=== PATIENT | female | born 1940 | race Caucasian/White ===

== ENCOUNTER 2018-08-17 11:45 | Inpatient (IN) | payer MEDICARE, BC ==
--- NOTE | 2018-08-17 12:35 | CR ---
[id number] RAD/RAD Chest PA And Lateral EXAM: FRONTAL AND LATERAL CHEST INDICATION: Fever and cough. COMPARISON: July 05, 2017. DISCUSSION: Hyperinflation is consistent with chronic obstructive pulmonary disease. Mild to moderate bibasilar interstitial opacities have increased and are most suggestive of infection in the context of fever. Left axillary and lower cervical clips are new relative to the previous examination. IMPRESSION: 1. Increased mild to moderate bilateral interstitial opacities in the lung bases. These findings are most suspicious for infection in the context of fever. Follow-up is suggested to ensure resolution and exclude other underlying pathology. Gerry Pemberton MD 08/17/18 1012 Thank you for allowing us to participate in the care of your patient.
[2018-08-17] MEDS ORDERED: Sodium Chloride 0.9% 1,000 ML IV ONE ×2 (12:49→13:28)
[2018-08-17] MEDS ORDERED: Levofloxacin/Dextrose 5%-Water 500 MG in Premix Bag 1 BAG IV ONE (12:49)
[2018-08-17 12:52] LABS: CHLORIDE,CL 100 mmol/L (98-107); SODIUM,NA 136 mmol/L (136-145)
[2018-08-17 12:53] LABS: ANION GAP 18.5 mmol/L (10-20)
--- NOTE | 2018-08-17 13:14 | EDM.PDOC ---
ED HPI GENERAL MEDICAL PROBLEM - General Chief Complaint: Fever Stated Complaint: FEVER,WHEEZING Time Seen by Provider: 08/17/18 12:00 Source of Information: Reports: Patient, Family, Old Records, RN, RN Notes Reviewed History Limitations: Reports: No Limitations - History of Present Illness INITIAL COMMENTS - FREE TEXT/NARRATIVE: Patient presents the emergency room at [facility] for the evaluation of productive cough, fever, hypoxia. The patient states that her symptoms started last evening. The patient's symptoms have progressively gotten worse. The patient states she feels somewhat weak. The patient was recently hospitalized at [facility] on July 06, 2018 for pneumonia. The patient had an uneventful admission and was able to be discharged home. Since the patient has been home she states that she has felt okay and in her normal usual state of health. The patient was recently seen in clinic on August 13, 2018 and was doing okay at that time. The patient denies any focal neurological deficits. The patient does not have any chest pain. The patient states she is coughing up a green/yellow appearing purulent sputum. The patient has had fevers and chills at home. The patient does not feel short of breath. The patient has not had any nausea vomiting or diarrhea. The patient states she is feeling weak and somewhat fatigued. Otherwise no other concerns. Onset Date: 08/16/18 - Related Data Allergies Allergy/AdvReac Type Severity Reaction Status Date / Time adhesive Allergy Rash Verified 08/17/18 12:07 amoxicillin Allergy Rash Verified 08/17/18 12:07 cephalexin Allergy Rash Verified 08/17/18 12:07 doxycycline Allergy Other Verified 08/17/18 12:07 erythromycin base Allergy Rash Verified 08/17/18 12:07 Fish Containing Products Allergy Nausea Verified 08/17/18 12:07 hydrocodone [From [place]] Allergy Nausea Verified 08/17/18 12:07 hydroxyurea [From [place]] Allergy Other Verified 08/17/18 12:07 iodine Allergy Hives Verified 08/17/18 12:07 latex Allergy Rash Verified 08/17/18 12:07 NSAIDS (Non-Steroidal Allergy Bleeding Verified 08/17/18 12:07 Anti-Inflamma Penicillins Allergy Rash Verified 08/17/18 12:07 perfume Allergy Headache Verified 08/17/18 12:07 Sulfa (Sulfonamide Allergy Rash Verified 08/17/18 12:07 Antibiotics) aspirin AdvReac Bleeding Verified 08/17/18 12:07 Home Meds: Home Meds Citalopram Hydrobromide [Celexa] 20 mg PO BEDTIME 01/02/15 [History] Omeprazole [Prilosec] 20 mg PO DAILY 01/02/15 [History] Epoetin Jhony [Epogen] 2,000 unit SUBCUT WEEKLY 09/30/15 [History] Albuterol [Proventil Neb Soln] 2.5 mg NEB QID 08/17/18 [History] Arformoterol [Brovana] 15 mcg NEB BID 08/17/18 [History] Budesonide [Pulmicort] 0.5 mg NEB BID 08/17/18 [History] Roflumilast [Daliresp] 500 mcg PO DAILY 08/17/18 [History] Past Medical History Respiratory History: Reports: Bronchitis, Recurrent, Other (See Below) Other Respiratory History: Pulmonary emphysema Gastrointestinal History: Reports: GI Bleed, Other (See Below) Other Gastrointestinal History: 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 - Infectious Disease History Infectious Disease History: Reports: C-Difficile Social & Family History - Family History Family Medical History: Noncontributory - Tobacco Use Smoking Status *Q: Unknown Ever Smoked - Caffeine Use Caffeine Use: Reports: Coffee ED ROS GENERAL - Review of Systems Review Of Systems: See Below Constitutional: Reports: Fever, Chills, Weakness, Fatigue HEENT: Reports: No Symptoms Respiratory: Reports: Shortness of Breath, Wheezing, Cough, Sputum Cardiovascular: Denies: Chest Pain, Palpitations GI/Abdominal: Denies: Abdominal Pain, Nausea, Vomiting Skin: Reports: No Symptoms Neurological: Reports: No Symptoms ED EXAM, GENERAL - Physical Exam Exam: See Below Exam Limited By: No Limitations General Appearance: Alert, No Apparent Distress Respiratory/Chest: Decreased Breath Sounds, Rhonchi, Wheezing. No: No Respiratory Distress Cardiovascular: Normal Peripheral Pulses, Tachycardia Peripheral Pulses: 2+: Radial (L), Radial (R) GI/Abdominal: Normal Bowel Sounds, Soft, Non-Tender Neurological: Alert, Oriented Skin Exam: Warm, Dry, Intact, Normal Color Course - Vital Signs Last Recorded V/S: Last Vital Signs Temp 38.8 C H 08/17/18 11:55 Pulse 111 H 08/17/18 11:55 Resp 32 H 08/17/18 11:55 BP 132/65 08/17/18 11:55 Pulse Ox 86 L 08/17/18 11:55 - Orders/Labs/Meds Orders: Active Orders 24 hr Category Date Time Status Admission Status [Patient Status] [ADT] Routine ADT 08/17/18 13:08 Ordered CULTURE BLOOD [BC] Stat Lab 08/17/18 12:15 Received CULTURE BLOOD [BC] Stat Lab 08/17/18 12:21 Received Levofloxacin/Dextrose 5%-Water [Levaquin in D5W 500 MG/ Med 08/17/18 12:49 Active 100 ML] 500 mg Premix Bag 1 bag IV ONETIME Sodium Chloride 0.9% [Normal Saline] 1,000 ml Med 08/17/18 12:49 Active IV ONETIME Sodium Chloride 0.9% [Saline Flush] Med 08/17/18 12:02 Active 10 ml FLUSH ASDIRECTED PRN Blood Culture x2 Reflex Set [OM.PC] Stat Oth 08/17/18 12:01 Ordered Peripheral IV Insertion Adult [OM.PC] Routine Oth 08/17/18 12:02 Ordered Medication Orders Sodium Chloride (Normal Saline) 1,000 mls @ 999 mls/hr IV ONETIME ONE Stop: 08/17/18 13:49 Last Admin: 08/17/18 13:00 Dose: 999 mls/hr Levofloxacin/Dextrose 500 mg/ (Premix) 100 mls @ 100 mls/hr IV ONETIME ONE Stop: 08/17/18 13:48 Last Admin: 08/17/18 13:00 Dose: 100 mls/hr Sodium Chloride (Saline Flush) 10 ml FLUSH ASDIRECTED PRN PRN Reason: Keep Vein Open Labs: Laboratory Tests 08/17/18 08/17/18 08/17/18 Range/Units 12:15 12:15 12:15 WBC 56.4 H* (4.0-10.0) x10^3/uL RBC 3.68 L (4.00-5.50) x10^6/uL Hgb 9.1 L (12.0-16.0) g/dL Hct 29.9 L (33.0-47.0) % MCV 81.3 (78.0-93.0) fL MCH 24.7 L (26.0-32.0) pg MCHC 30.4 L (32.0-36.0) g/dL RDW Coeff of Marcos 29.9 H (10.0-15.0) % Plt Count 514 H D (130-400) x10^3/uL Add Manual Diff Yes Neutrophils % (Manual) 86 H (50-80) % Band Neutrophils % 12 H (0-6) % Monocytes % (Manual) 2 (2-11) % Nucleated RBCs 1 (0-5) /100WBC Platelet Estimate Increased H Hypochromasia 2+ moderate H Anisocytosis 3+ marked H Microcytosis 1+ slight H Sodium 136 (136-145) mmol/L Potassium 3.5 (3.5-5.1) mmol/L Chloride 100 (98-107) mmol/L Carbon Dioxide 21 (21-32) mmol/L Anion Gap 18.5 (10-20) mmol/L BUN 16 (7-18) mg/dL Creatinine 1.0 (0.55-1.02) mg/dL Est Cr Clr Drug Dosing TNP Estimated GFR (MDRD) 54 Glucose 146 H (74-106) mg/dL Lactic Acid 2.2 H* (0.4-2.0) mmol/L Calcium 8.9 (8.5-10.1) mg/dL Corrected Calcium 9.46 (8.5-10.1) mg/dL Total Bilirubin 1.9 H (0.2-1.0) mg/dL AST 19 (15-37) U/L ALT 14 (14-59) U/L Alkaline Phosphatase 74 (46-116) U/L C-Reactive Protein 7.6 H (<=0.9) mg/dL Total Protein 7.9 (6.4-8.2) g/dL Albumin 3.3 L (3.4-5.0) g/dL Globulin 4.6 Albumin/Globulin Ratio 0.72 Meds: Medications Generic Name Dose Route Start Last Admin Trade Name Freq PRN Reason Stop Dose Admin Sodium Chloride 1,000 mls @ 999 mls/hr 08/17/18 12:49 08/17/18 13:00 Normal Saline IV 08/17/18 13:49 999 mls/hr ONETIME ONE Administration Levofloxacin/Dextrose 500 mg/ 100 mls @ 100 mls/hr 08/17/18 12:49 08/17/18 13 :00 Premix IV 08/17/18 13:48 100 mls/hr ONETIME ONE Administration Sodium Chloride 10 ml 08/17/18 12:02 Saline Flush FLUSH ASDIRECTED PRN Keep Vein Open Departure - Departure Time of Disposition: 13:13 Disposition: Admitted As Inpatient 68 Condition: Fair Clinical Impression: Hypoxia Pneumonia Qualifiers: Pneumonia type: due to unspecified organism Laterality: bilateral Lung location : lower lobe of lung Qualified Code(s): J18.1 - Lobar pneumonia, unspecified organism Leukocytosis Qualifiers: Leukocytosis type: unspecified Qualified Code(s): D72.829 - Elevated white blood cell count, unspecified - Discharge Information *PRESCRIPTION DRUG MONITORING PROGRAM REVIEWED*: Not Applicable *COPY OF PRESCRIPTION DRUG MONITORING REPORT IN PATIENT PEDRO: Not Applicable ED Communication - ED Communication Date/Time Date: 08/17/18 Time Called: 12:48 - Discussed Case With (1) Discussed Case With (1): Admitting Provider Person/s Notified (1): Alley John - Conversation Summary Admitting Provider Agreed to Patient's Admission: Yes Patient Aware of Amendments fo Care Plan: Yes - Problem List Review Problem List Initiated/Reviewed/Updated: Yes - My Orders Last 24 Hours: My Active Orders 08/17/18 12:01 Blood Culture x2 Reflex Set [OM.PC] Stat 08/17/18 12:02 Sodium Chloride 0.9% [Saline Flush] 10 ml FLUSH ASDIRECTED PRN Peripheral IV Insertion Adult [OM.PC] Routine 08/17/18 12:15 CULTURE BLOOD [BC] Stat 08/17/18 12:21 CULTURE BLOOD [BC] Stat 08/17/18 12:49 Levofloxacin/Dextrose 5%-Water [Levaquin in D5W 500 MG/100 ML] 500 mg Premix Bag 1 bag IV ONETIME Sodium Chloride 0.9% [Normal Saline] 1,000 ml IV ONETIME 08/17/18 13:08 Admission Status [Patient Status] [ADT] Routine - Assessment/Plan Last 24 Hours: My Active Orders 08/17/18 12:01 Blood Culture x2 Reflex Set [OM.PC] Stat 08/17/18 12:02 Sodium Chloride 0.9% [Saline Flush] 10 ml FLUSH ASDIRECTED PRN Peripheral IV Insertion Adult [OM.PC] Routine 08/17/18 12:15 CULTURE BLOOD [BC] Stat 08/17/18 12:21 CULTURE BLOOD [BC] Stat 08/17/18 12:49 Levofloxacin/Dextrose 5%-Water [Levaquin in D5W 500 MG/100 ML] 500 mg Premix Bag 1 bag IV ONETIME Sodium Chloride 0.9% [Normal Saline] 1,000 ml IV ONETIME 08/17/18 13:08 Admission Status [Patient Status] [ADT] Routine Assessment:: Community-acquired pneumonia Plan: Case was discussed with Dr. Alley John. The patient will be admitted to Dr. John's service. The patient will be admitted acute for the treatment of her pneumonia.
[2018-08-17] MEDS ORDERED: Acetaminophen 325 MG Tab PO PRN (13:34)
[2018-08-17] MEDS: Albuterol 0.083% 2.5 MG/3 ML Neb Soln NEB SCH ×2 (16:31→20:10)
[2018-08-17] MEDS ORDERED: Potassium Chloride 10 MEQ Tab.ER PO ONE (17:25)
[2018-08-17] MEDS: Budesonide 0.5 MG/2 ML Neb Susp NEB SCH (20:10)
[2018-08-17] MEDS: Citalopram 20 MG Tab PO SCH (20:10)
[2018-08-17] MEDS: Arformoterol 15 MCG/2 ML Neb Soln NEB SCH (20:10)
--- NOTE | 2018-08-17 23:08 | HP ---
CHIEF COMPLAINT: Fever and cough. HISTORY OF PRESENT ILLNESS: This is a 77-year-old female, who had an admission back in 07/07/2018 after being started on Levaquin on the for a COPD exacerbation down at [place]. She was discharged home on the , and completed a course of antibiotics with Levaquin. She really has not felt well since then. She has been more weak. She has had some diarrhea and loose stools, but that cleared up, and she has negative C diff testing. Her weight is down 8 pounds since the part of the month. She is actually just seen in the clinic on , and was found to be slightly more anemic than usual. Her baseline is around 9. She was at 8.5. Her white count had improved down to 17.1. She does have MDS. But at that visit, her breathing and cough were actually improved. She does have nebulizers to use at home. She will occasionally use her saline nebs. She never did start the Daliresp due to expense. She tried Mucomyst nebs, but it made her feel ill. Today, she comes into the emergency room, temperature was 101.9. She actually was going to come for a clinic visit, but we advised her to come in and not wait, and when she arrived, she was like 80% on room air and was quite pale. Otherwise, she does have only pain in the right low back. This has been going on for quite some time. We even did a CT scan that was okay, and she has seen a chiropractor for it. ALLERGIES: Penicillin, causes rash. Iodine, hives. [place], nausea. Amoxicillin, rash. Aspirin, GI bleeding. Cephalexin, rash. Doxycycline, melena. Erythromycin, rash. Fish causes nausea. Hydroxyurea, just cannot have. Latex, NSAIDs cause GI bleeding. Perfumes, sulfa drugs, rash, and tape. MEDICATIONS: Her medication list is reviewed. Proventil solution 2.5 mg 4 times a day, Daliresp has not started, saline 0.9 3 mL every 2 hours as needed for cough, Procrit 20,000 units once weekly, last given on the , levothyroxine 50 mcg daily, Brovana 15 mcg twice daily, Pulmicort 0.5 twice daily, Celexa 20 mg at bedtime, and Prilosec 20 mg daily. PAST MEDICAL HISTORY: Really quite complex. She has had chronic anxiety. She has had COPD and emphysema with previous smoking, but has quit over a year ago. She has had anxiety. She has had chronic anemia due to myelodysplastic syndrome. She has had previous GI bleeding due to AVMs. She has had previous iron-deficiency anemia, but recently did not have iron deficiency. She has had previous laryngeal cancer status post surgery and radiation, and then laryngectomy in 12/2017. She has had osteopenia. She has had multiple pneumonias in the past. She has had depression. She has had thrombocytosis. PAST SURGICAL HISTORY: She has had endoscopies multiple times. She has had some I and D for a chest wall hematoma after this laryngectomy. She has had previous colonoscopy. She has had breast biopsy. She has a trach. FAMILY HISTORY: Both parents are . Her father had cirrhosis and mother had diabetes. SOCIAL HISTORY: She is . She lives at home with her . They are retired. She quit smoking a couple years ago when she had the laryngeal cancer. She has 2 children. REVIEW OF SYSTEMS: General: She has had the weight gain as stated in the HPI. She has felt fever and chills. HEENT: She otherwise has not noted any new trouble swallowing. Cardiac: She has no chest pain. She has not noted palpitations. She was tachycardic 111 on arrival. Respiratory: She has had cough. She is coughing up from her trach more yellow sputum now. She has not had any wheezing, but she has had some more shortness of breath. GI: She has had this nausea and decreased appetite, but no further diarrhea. She has had some yellow stools in the past. Musculoskeletal: She has had a right low back pain. Otherwise, no new aches or pains. Otherwise, all systems reviewed and found to be negative unless otherwise stated. PHYSICAL EXAMINATION: Vital Signs: On admission, temp 100.9, pulse 95, blood pressure 128/67, respiratory rate 24, O2 93% on 2.5 L. Admission to the ER, 101.9 temp, pulse 111, and O2 86% on room air. General: She is in no acute distress. Her color is better than when I saw her arrive at the ER. Heart: Regular rate and rhythm with tachycardia. Lungs: Lung sounds are decreased with rhonchi in both bases and the right upper lobe, but no wheezes appreciated. Abdomen: Has positive bowel sounds. It is soft and nontender. Extremities: Warm and dry. No edema. Mental Status: Alert and orientated x3. Skin: She does have a trach in place. There is just minimal redness, but no drainage. Otherwise, she does have tenderness of the right low back pain to palpation, but no spasm. LABORATORY DATA: Lab work did show her white count of 56.4, hemoglobin 9.1, platelets 514, 12% bands, which is quite elevated. Sodium 136, potassium 3.5, chloride 100, bicarb 21, BUN 16, creatinine 1, glucose 146, lactic elevated at 2.2, calcium 8.9, bili 1.9, AST 19, ALT 14, alkaline phosphatase 74, albumin 3.3. CRP is elevated at 7.6. Otherwise, her chest x-ray does show the infiltrates, bilateral interstitial opacities. ASSESSMENT AND PLAN: 1. Healthcare-associated pneumonia in a patient with recent admission and multiple re-occurring admissions for pneumonia and severe chronic obstructive pulmonary disease. 2. Severe chronic obstructive pulmonary disease with exacerbation due to pneumonia. 3. Tracheostomy. 4. Sepsis due to pneumonia. 5. Anxiety. 6. History of gastrointestinal bleeding, on Prilosec. 7. Myelodysplastic syndrome with chronic anemia. Hemoglobin stable at 9.1, although the patient may be dehydrated. 8. Mild malnutrition with recent weight loss, probably due to medical comorbidities. 9. Hypothyroidism, on treatment. 10.Depression. PLAN: At this point, the patient will continue acute cares. I will continue IV Levaquin at 500 IV daily. Given her age and weight, she is on the borderline for decreasing the dose, so we will continue to monitor kidney function closely. We will repeat a lactic acid. We will have her on continuous pulse oximetry and oxygen. We will do her saline trach rinses and suction. We will give her scheduled albuterol nebs and DuoNebs p.r.n. We will continue the Brovana and Pulmicort. For DVT prophylaxis given her bleeding risk, the patient will be on SCDs. We will follow her hemoglobin closely, repeat in the morning. Blood cultures have been sent. We have ordered sputum cultures. I am going to also order an influenza testing. The patient elects to be a code level 1. If her condition worsens, we will transfer her down to [place]. If she improves, she will likely be discharged home in the next few days. JANNYA: 08/17/2018 17:29:01 MODL: 08/17/2018 23:02:37 /[id number]
[2018-08-18] MEDS: Albuterol 0.083% 2.5 MG/3 ML Neb Soln NEB SCH ×4 (07:01→20:58)
[2018-08-18] MEDS: Budesonide 0.5 MG/2 ML Neb Susp NEB SCH ×2 (07:01→20:59)
[2018-08-18] MEDS: Arformoterol 15 MCG/2 ML Neb Soln NEB SCH ×2 (07:01→20:59)
[2018-08-18] MEDS: Omeprazole 20 MG Cap.CR PO SCH (07:01)
[2018-08-18 07:24] LABS: CHLORIDE,CL 101 mmol/L (98-107); SODIUM,NA 135 mmol/L (136-145)
[2018-08-18 07:27] LABS: ANION GAP 13.9 mmol/L (10-20)
[2018-08-18] MEDS: Albuterol/Ipratropium 3.0-0.5 MG/3 ML Neb Soln NEB PRN (09:25)
[2018-08-18] MEDS: Levofloxacin/Dextrose 5%-Water 500 MG in Premix Bag 1 BAG IV SCH (10:04)
[2018-08-18] MEDS: Ondansetron 4 MG/2 ML SDV IVPUSH PRN ×2 (12:09→20:58)
[2018-08-18] MEDS: SODIUM CHLORIDE NEB PRN (15:11)
[2018-08-18] MEDS: [UNRECOGNIZED DRUG - OTHER] NEB PRN (15:11)
--- NOTE | 2018-08-18 17:16 | PN ---
Progress Note for HORTENSIA SHEPARD Date: 08/18/2018 Room #: [facility] SUBJECTIVE: This is hospital day #2 on a 77-year-old admitted with sepsis due to community-acquired bilateral pneumonia. The patient has been now afebrile since admission. She is still coughing and short of breath, but she feels these are improving. She is not on oxygen routinely at home but does have it available. She has a tracheostomy due to laryngeal cancer. Her only pain is in her right low back, which is a chronic problem. She otherwise has been tolerating a diet. OBJECTIVE: Vital Signs: Her temperature is 97.6, pulse 85, blood pressure 118/68, respiratory rate 20, and O2 of 98% on room air. General: She is in no acute distress. Heart: Regular rate and rhythm. Lungs: Lungs sounds are decreased with no crackles or wheezes appreciated today. Overall air entry does sound improved. Neurologic: Her mental status, she is alert, she is orientated x3. Neck: Her tracheostomy is examined. There is no purulent drainage. Minimal surrounding redness, no warmth. Extremities: Warm and dry. No edema. DATA: Otherwise, lab work does show white count 34,000, this is improving; hemoglobin 7.5; and platelets 449. Sodium 135, potassium 3.9, chloride 101, bicarbonate 24, BUN 15, creatinine 0.8, glucose 125, calcium 8.1, and bilirubin 1.2, that is improving. LFTs are normal. Albumin 2.7. ASSESSMENT: 1. Sepsis due to community-acquired pneumonia. Lactic acid is normal. She is improving. We will continue the intravenous Levaquin. Awaiting sputum cultures. Blood cultures so far negative. 2. Severe chronic obstructive pulmonary disease with exacerbation due to pneumonia. We will continue with the scheduled and p.r.n. nebulizers. At this point, she is not actively wheezing. We will hold off on any steroids. 3. Tracheostomy. We will continue cares with suction. 4. Health care-associated pneumonia. On day #2 of Levaquin. 5. Acute on chronic anemia. Hemoglobin down to 7.5. We will repeat later today. There are no acute signs of bleeding. She is fatigued, so we will type and cross and consider transfusion based on her symptoms. 6. Anxiety. Continue home medications. 7. History of gastrointestinal bleeding, on Prilosec. 8. Underlying myelodysplastic syndrome. 9. Mild malnutrition. 10.Hypothyroidism, on treatment. 11.Depression. PLAN: At this point, we will continue acute cares. We will continue with IV Levaquin. At this point, I think she is taking in enough diet. We can go ahead and stop her fluids. Otherwise, we will repeat lab work in the morning. Consider blood transfusion. Continue her nebulizers. For DVT prophylaxis, she is on SCDs. MKA: 08/18/2018 16:06:19 MODL: 08/18/2018 16:43:20 /[id number]
[2018-08-18] MEDS ORDERED: Melatonin 3 MG Tab PO PRN (20:54)
[2018-08-18] MEDS: Sodium Chloride 0.9% 10 ML Syringe FLUSH PRN (20:58)
[2018-08-18] MEDS: Citalopram 20 MG Tab PO SCH (20:59)
[2018-08-18] MEDS ORDERED: LORazepam 0.5 MG Tab PO STA (22:01)
[2018-08-18] MEDS ORDERED: LORazepam 0.5 MG Tab PO PRN (22:56)
[2018-08-19] MEDS: Ondansetron 4 MG/2 ML SDV IVPUSH PRN (04:56)
[2018-08-19] MEDS: Sodium Chloride 0.9% 10 ML Syringe FLUSH PRN (04:56)
[2018-08-19] MEDS: Budesonide 0.5 MG/2 ML Neb Susp NEB SCH ×2 (06:47→20:04)
[2018-08-19] MEDS: Omeprazole 20 MG Cap.CR PO SCH (06:47)
[2018-08-19] MEDS: Arformoterol 15 MCG/2 ML Neb Soln NEB SCH ×2 (06:47→20:04)
[2018-08-19] MEDS: Albuterol 0.083% 2.5 MG/3 ML Neb Soln NEB SCH ×4 (06:47→20:03)
[2018-08-19 07:40] LABS: CHLORIDE,CL 96 mmol/L (98-107)
[2018-08-19 07:42] LABS: ANION GAP 10.6 mmol/L (10-20); SODIUM,NA 129 mmol/L (136-145)
[2018-08-19] MEDS ORDERED: Promethazine 25 MG Tab PO PRN (08:38)
[2018-08-19] MEDS: Levofloxacin/Dextrose 5%-Water 500 MG in Premix Bag 1 BAG IV SCH (08:38)
[2018-08-19] MEDS ORDERED: Promethazine 6.25 MG in Sodium Chloride 0.9% 100 ML IV PRN (08:38)
--- NOTE | 2018-08-19 09:42 | CR ---
[id number] RAD/RAD Abdomen 3V Exam: RAD Abdomen 3V Clinical Data: NAUSEA COMPARISON: CORRELATION IS MADE WITH THE CAT SCAN OF JULY 30, 2018. FINDINGS: There is no free air under the diaphragm. Lucencies projecting against the right lobe of the liver under the diaphragm are thought to actually represent interstitial changes of the lung. A lateral chest radiograph will be helpful to confirm this. There is minimal pleural reaction at both lung bases. Surgical changes of the left breast are seen. Surgical changes are seen in the neck. The cardiac silhouette is enlarged but stable. There appears to be mild edema. There is no bowel obstruction. There is no organomegaly or pathologic calcification. The right lobe of the liver is prominent, a normal variant. IMPRESSION: NO FREE AIR UNDER DIAPHRAGM. MILD CHF. NO ACUTE PROCESS OBVIOUS IN THE ABDOMEN. ABNORMAL LUCENCIES PROJECTING AGAINST LIVER AND RIGHT LUNG BASE IN THE SUPINE FILM OF ABDOMEN. CONSIDER LATERAL VIEW OF CHEST TO CONFIRM THAT THIS LIKELY IS WITHIN THE RIGHT LOWER LOBE OF THE LUNG. Alex Rangel MD 08/19/18 0938 Thank you for allowing us to participate in the care of your patient.
--- NOTE | 2018-08-19 09:43 | PN ---
Progress Note for HORTENSIA SHEPARD Date: 08/19/2018 Room #: VM.217 SUBJECTIVE: This is hospital day #3 on a 77-year-old, admitted with healthcare- associated pneumonia. She had fevers initially, but has been afebrile since admission on IV Levaquin. She is having quite a bit of nausea, relieved by Zofran. Also was quite anxious, having some difficulty sleeping last night. She received a dose of Ativan, and it did not help much. Otherwise, she feels like her breathing and cough are improving. She is feeling quite fatigued. She has been a little bit more tachycardic. IV fluids were stopped yesterday. She has eaten up to 100% of some meals and snacks, but other meal she is only eating 25%. She has had a bowel movement. PHYSICAL EXAMINATION: Vital Signs: Her temperature is 98, pulse 106, blood pressure 108/58, respiratory rate 22, O2 of 95% on room air. General: She is in no acute distress. Heart: Regular rate and rhythm. Slight murmur was noted. Lungs: Sounds are decreased air entry with some expiratory wheezing. Abdomen: Nondistended. Extremities: Warm and dry. Trace ankle edema. Mental Status: She is alert, she is orientated x3. The trach is in place. There is no drainage. LABORATORY DATA: Lab work does show white count of 36.8 slightly up from yesterday, hemoglobin 7.3 stable, platelets 435. Sodium 129, potassium 4.6, chloride 96, bicarb 27, BUN 15, creatinine 0.7, glucose 124, and calcium 8.3. ASSESSMENT AND PLAN: 1. Acute on chronic anemia with symptoms of fatigue and weakness. The patient will be transfused 1 unit today. We will repeat hemoglobin tomorrow. 2. Sepsis due to healthcare-associated pneumonia. This has resolved. 3. Healthcare-associated pneumonia. Sputum culture pending, so far no growth. We will continue her on IV Levaquin due to her ongoing nausea. 4. Nausea. We are going to go ahead and repeat her x-ray and get some abdominal x-rays as to further evaluate that. 5. Anxiety with difficulty sleeping due to the Ativan not being very effective. We are going to try some Seroquel tonight. Therefore, I will switch her Zofran over to Phenergan. Her magnesium and potassium are stable. 6. History of laryngeal cancer with tracheostomy. Continue cares. 7. History of gastrointestinal bleeding on Prilosec. 8. Underlying myelodysplastic syndrome. She is due for Procrit. We will discuss with pharmacy, possibly she will have to get it at the clinic after discharge. 9. Mild malnutrition. We will encourage diet. 10.Hypothyroidism, on treatment. 11.Depression. PLAN: At this point, the patient will continue acute cares. We will continue IV Levaquin. I will hold off on any IV steroids due to her anxiety and difficulty sleeping, and we will continue her on nebs. We will continue with oxygen, wean as able. For DVT prophylaxis, we will get those SCDs on her. We will transfuse one unit of packed red blood cells and repeat lab work tomorrow. MKA: 08/19/2018 09:15:51 MODL: 08/19/2018 09:37:55 /[id number]
[2018-08-19] MEDS: Albuterol/Ipratropium 3.0-0.5 MG/3 ML Neb Soln NEB PRN (13:17)
[2018-08-19] MEDS: SODIUM CHLORIDE NEB PRN (13:18)
[2018-08-19] MEDS: [UNRECOGNIZED DRUG - OTHER] NEB PRN (13:18)
[2018-08-19] MEDS ORDERED: ALPRAZolam 0.25 MG Tab PO PRN (16:06)
[2018-08-19] MEDS ORDERED: methylPREDNISolone Sodium Succinate 40 MG/1 ML SDV IVPUSH ONE (16:17)
[2018-08-19] MEDS: Citalopram 20 MG Tab PO SCH (20:04)
[2018-08-19] MEDS: QUEtiapine 25 MG Tab PO SCH (20:04)
[2018-08-20] MEDS: Albuterol/Ipratropium 3.0-0.5 MG/3 ML Neb Soln NEB PRN ×3 (03:49→22:12)
[2018-08-20] MEDS: [UNRECOGNIZED DRUG - OTHER] NEB PRN ×3 (05:58→12:56)
[2018-08-20] MEDS: SODIUM CHLORIDE NEB PRN ×3 (05:58→12:56)
[2018-08-20] MEDS: Albuterol 0.083% 2.5 MG/3 ML Neb Soln NEB SCH ×4 (06:51→20:06)
[2018-08-20] MEDS: Arformoterol 15 MCG/2 ML Neb Soln NEB SCH ×2 (06:51→19:55)
[2018-08-20] MEDS: Omeprazole 20 MG Cap.CR PO SCH (06:51)
[2018-08-20] MEDS: Budesonide 0.5 MG/2 ML Neb Susp NEB SCH ×2 (06:51→19:55)
[2018-08-20 07:09] LABS: CHLORIDE,CL 92 mmol/L (98-107)
[2018-08-20 07:11] LABS: ANION GAP 9.9 mmol/L (10-20); SODIUM,NA 124 mmol/L (136-145)
[2018-08-20] MEDS ORDERED: LORazepam 2 MG/ML SDV IVPUSH ONE (07:17)
[2018-08-20] MEDS ORDERED: Sodium Chloride 0.9% 500 ML IV SCH (08:00)
[2018-08-20] MEDS: Levofloxacin/Dextrose 5%-Water 500 MG in Premix Bag 1 BAG IV SCH (08:32)
[2018-08-20] MEDS ORDERED: methylPREDNISolone Sodium Succinate 40 MG/1 ML SDV IVPUSH ONE ×2 (14:59→15:15)
[2018-08-20] MEDS ORDERED: Furosemide 20 MG/2 ML VIAL IV ONE (14:59)
[2018-08-20] MEDS ORDERED: Enoxaparin 60 MG/0.6 ML Syringe SUBCUT ONE ×2 (15:00→15:15)
[2018-08-20] MEDS ORDERED: Furosemide 20 MG/2 ML VIAL IVPUSH ONE (15:15)
--- NOTE | 2018-08-20 16:41 | PN ---
Progress Note for HORTENSIA SHEPARD Date: 08/20/2018 Room #: .[facility] SUBJECTIVE: This is hospital day #4 on a 77-year-old admitted with fevers and pneumonia. The patient had a chest x-ray repeated yesterday, which did show some improvement. Her sodium did go down yesterday to 129. She has no hx of CHF. She has had some leg swelling refused SCDs, not on Lovenox. She was more confused during the night. She slept for maybe 2 hours after Seroquel, but she has been quite anxious. She is almost falling asleep when I visit with her today has barely slept the last 3 days. She is requiring more oxygen now up to 4 L; therefore, ABGs were requested. She does have a trach and her ABG showed pH 7.2, pCO2 of 55, O2 of 75. In the past, she had a pCO2 of 48. Otherwise, she is denying any chest pain. The patient has no history of coronary artery disease. She was a previous smoker, but has quit. She just feels tight up around the trach. She did get a dose of 40 mg of Solu-Medrol yesterday. She has been more wheezy despite nebs. She has now been afebrile. She has been on Levaquin. Her white count had been improving, but went up this morning. Otherwise, she does have a history of laryngeal cancer. She has a history of emphysema.. OBJECTIVE: Vital Signs: She currently has a temperature of 97.9, pulse 99, blood pressure 127/83, respiratory rate 21, and O2 of 99% on 4 L. General: She is in mild distress, more so just appears anxious and frustrated. Heart: Regular rate and rhythm. S1 and S2 without murmur. Lungs: Sounds are decreased throughout with both inspiratory and expiratory wheezing. Abdomen: Has positive bowel sounds. Soft and nontender. Extremities: Warm and dry. She does have 1+ edema. Her calves are nontender. Mental Status: She is alert. She is orientated x3. LABORATORY DATA: Lab work did show that white count up to 43,000, hemoglobin 8.8, platelets 591. INR is 1.0 today. ABGs were repeated again later; pH 7.3, pCO2 improved down to 53, O2 up to 137. Sodium 123 on repeat and troponin was 0.9. ProBNP 17,175. EKG showed sinus tachycardia. We did consider doing a CT PE protocol because the patient had refused SCDs and due to her anemia and myelodysplastic syndrome, we did not put her on Lovenox, but she is allergic to iodine. ASSESSMENT: 1. Acute on chronic anemia. Hemoglobin did improve up to 8.8 today with 1 unit of packed red blood cells given yesterday. We were hopeful that would make her breathe better and less anxious but it didn't. 2. Sepsis due to healthcare-associated pneumonia, resolved. 3. Healthcare-associated pneumonia. Her final sputum culture was normal respiratory luli. Blood cultures have been negative. We will continue IV Levaquin due to her critical illness treat for 7 days total. 4. Anxiety with some difficulty sleeping. We held off on giving her any p.r.n. Ativan IV due to the concern for CO2 retention. At this point, she is finally able to get some rest, so we will just continue to monitor that closely. We will continue with the Seroquel at night. 5. History of laryngeal cancer and tracheostomy. If needed, we will use trach cuffs and try to do BiPAP with it. RT is now available, but with ABGs improving, we will just continue IV steroids and see how she does. 6. Chronic obstructive pulmonary disease exacerbation due to pneumonia. I am going to continue Solu-Medrol, I will do 40 mg q.8 hours. 7. History of gastrointestinal bleeding, on Prilosec. 8. [id number] myocardial infarction, could be due to the stress from pneumonia. We will repeat a troponin in 3 hours. I will have her on Lovenox 60 mg b.i.d. If she did have a pulmonary embolism, this would also cover her. We will watch her closely for any acute signs of bleeding. She is not a candidate for aspirin. I don't think her blood pressure will allow JC or BB especially with diuresis. We will Consider a statin but repeat liver enzymes first. 9. Myelodysplastic syndrome. She is due for Procrit, but obviously she has too many medical comorbidities ongoing to get this currently, and her hemoglobin improved after transfusion, so we will worry about that outpatient. 10.Malnutrition. 11.Hypothyroidism. 12.Depression. PLAN: At this point, the patient will continue acute cares. I actually called [facility] to run the case by them as well. We would definitely transfer the patient; [place] I feel we can continue to manage her locally with IV steroids, nebulizers and BiPAP if needed. We will monitor lab work again tomorrow. I will place her on telemetry. If her condition fails to improve she will need to be transferred to [place] tomorrow when the roads open. MKA: 08/20/2018 16:02:51 MODL: 08/20/2018 16:38:00 /[id number]
[2018-08-20] MEDS: Citalopram 20 MG Tab PO SCH (19:55)
[2018-08-20] MEDS: QUEtiapine 25 MG Tab PO SCH (19:56)
[2018-08-20] MEDS: Sodium Chloride 0.9% 10 ML Syringe FLUSH PRN (20:14)
[2018-08-21] MEDS: Sodium Chloride 0.9% 10 ML Syringe FLUSH PRN (00:08)
[2018-08-21] MEDS: methylPREDNISolone Sodium Succinate 40 MG/1 ML SDV IVPUSH SCH ×2 (00:08→08:49)
[2018-08-21] MEDS: [UNRECOGNIZED DRUG - OTHER] NEB PRN (01:51)
[2018-08-21] MEDS: SODIUM CHLORIDE NEB PRN (01:51)
[2018-08-21] MEDS: Omeprazole 20 MG Cap.CR PO SCH (06:12)
[2018-08-21] MEDS: Albuterol 0.083% 2.5 MG/3 ML Neb Soln NEB SCH ×3 (07:03→15:01)
[2018-08-21] MEDS: Budesonide 0.5 MG/2 ML Neb Susp NEB SCH (07:04)
[2018-08-21] MEDS: Arformoterol 15 MCG/2 ML Neb Soln NEB SCH (07:04)
[2018-08-21 07:33] LABS: CHLORIDE,CL 92 mmol/L (98-107)
[2018-08-21 07:35] LABS: ANION GAP 9.4 mmol/L (10-20); SODIUM,NA 126 mmol/L (136-145)
[2018-08-21] MEDS: Levofloxacin/Dextrose 5%-Water 500 MG in Premix Bag 1 BAG IV SCH (08:49)
--- NOTE | 2018-08-21 10:32 | CR ---
[id number] RAD/RAD Chest PA And Lateral EXAM: RAD Chest PA And Lateral CLINICAL DATA: SHORTNESS OF BREATH COMPARISON: CORRELATION IS MADE WITH THE EXAM OF AUGUST 17, 2018. FINDINGS: There appears to be a degree of interstitial fibrosis. The lungs are somewhat hyperaerated. There is minimal pleural reaction at the left lung base. There are surgical changes in the thoracic inlet. IMPRESSION: INTERSTITIAL LUNG DISEASE. NO NEW FINDINGS. Alex Rangel MD 08/21/18 1031 Thank you for allowing us to participate in the care of your patient.
[2018-08-21] MEDS ORDERED: Furosemide 20 MG/2 ML VIAL IV ONE (10:33)
[2018-08-21 14:24] VITALS: BP 96/57
--- NOTE | 2018-08-22 09:48 | DISCH ---
PRIMARY DISCHARGE DIAGNOSES: 1. Healthcare associated right lower lobe pneumonia. Culture has been negative. 2. Acute on chronic obstructive pulmonary disease exacerbation due to pneumonia. 3. Acute on chronic anemia due to illness. No signs of bleeding. She did receive 1 unit of packed red blood cells on 08/19/2018. 4. Acute heart failure exacerbation with no history of heart failure, unspecified, improving with IV Lasix. 5. Hyponatremia, likely due to heart failure, improving. Sodium up to 126 on discharge. 6. Sepsis due to healthcare associated pneumonia, resolved. 7. Anxiety, chronic, worsening due to breathing concerns. 8. History of laryngeal cancer, status post laryngectomy with stoma in place. 9. History of gastrointestinal bleeding, on Prilosec. 10.Underlying myelodysplastic syndrome with chronic anemia. She has not got Procrit during her stay. 11.Non ST-elevation myocardial infarction, possibly due to stress from the pneumonia. However, we cannot rule out PE or underlying coronary disease. EKG did not show any acute changes. Troponin did trend down from 0.9 to 0.8. 12.Malnutrition. 13.Hypothyroidism. 14.Depression. REASON FOR ADMISSION: On the date of admission, this 77-year-old female was brought into the emergency room by her . She was quite pale. She was hypoxic with sats in the 80s. She does not normally use oxygen at home, but does have it available. She had a fever of 101.9. White count was over 50,000. X-ray was done which showed a right lower lobe pneumonia. She had been previously treated back in June at [facility] for pneumonia. Otherwise, the patient was started on IV fluids, IV antibiotics. Her sepsis improved. Her lactic acid normalized and she was improving, however, she was feeling weak, more anxious. Her hemoglobin did trend down from 9.1 on admission down to 7.3. Therefore, she was transfused 1 unit of packed red blood cells on the 6th, and by the 7th, her breathing had worsened. She was very sleepy, but had not been sleeping at all during her stay. We did some ABGs due to concern for CO2 retention and did show her to have a pCO2 of only 75. We increased her oxygen from 4 to 5 L at that point, her pCO2 was 55, but it did improve down to 53. She did not require BiPAP. Because of her stoma, we did not pursue that, but we were available to do so if needed in an emergency. I even did call [facility] and consulted with the ICU doctor regarding that. Sodium went down to 122. Decision was made to diurese her with IV Lasix. This seemed to help her breathing and she was able to be weaned down off to 8 L down to about 35% FiO2 and really was doing slightly better on the day of transfer. However, given her prolonged stay and ongoing medical concerns, decision was made to transfer. She was also started on Lovenox 60 mg twice daily and need for a CT PE protocol could not be done here as she is allergic to iodine and she had not been on DVT prophylaxis during her stay as she refused the SCDs, and due to her anemia and myelodysplastic syndrome, we did not institute Lovenox. Her white count did come down to 27,000 at the time of transfer, hemoglobin was 8.2. Her sodium again 126. Kidney function was excellent. Creatinine 0.7. Her albumin was low at 2.6, but her liver enzymes were normal. She was eating may be like 25% of most meals during her stay, but she was having pretty decent oral intake and her fluid balance was a positive balance, but did have good excellent output about 1300 after the Lasix yesterday. Otherwise, transfer vitals included temperature of 98.7, pulse 109, blood pressure 127/52, respiratory rate 24, O2 of 88% on 2.5 L. In general, she is in no acute distress. Her heart has a regular rate and rhythm with tachycardia. Telemetry was not showing any events. Her lung sounds were decreased especially over the right base, but she had less wheezing today when compared to yesterday. Her abdomen is nondistended, nontender. Extremities warm and dry. Her edema had improved in her legs. Mental status; she is alert, she is orientated x3. She is actually less anxious currently. The stoma was examined, there was no drainage. DISCHARGE PLANS AND INSTRUCTIONS: She is going down to [facility] for further cares. She had been started on Solu-Medrol during her course here and it was increased to 3 times a day yesterday. She was getting aggressive neb treatments scheduled q.i.d. and also p.r.n. She will continue on the IV Levaquin. She will continue on the Lovenox and did get a dose of IV Lasix this morning after reviewing her chest x-ray, which did still show some fluid but no worsening of her pneumonia. She also did receive a dose of Seroquel to see if that would help her to sleep at night and it did help some. She has had some intermittent doses of Xanax p.r.n. as well, but not a significant amount. Otherwise, the patient's was updated that she would be transferred. She is waiting for a bed at [facility]. She will be sent by [facility]. Greater than 30 minutes were spent. MKA: 08/21/2018 11:31:03 MODL: 08/22/2018 09:44:31 /[id number]
== END 2018-08-21 15:02 | disposition short-term general hospital (02) | DRG 871 ==
LOC: VM.ED 11:45 → VM.MS 13:08
PROVIDERS: ADMIT Internal Medicine; ATTEND Internal Medicine
PROC: 30233N1 Transfusion of Nonautologous Red Blood Cells into Peripheral Vein, Percutaneous Approach (ICD-10-PCS; principal; 2018-08-19)
DX: A41.9 Sepsis, unspecified organism (principal); J18.1 Lobar pneumonia, unspecified organism; I21.4 Non-ST elevation (NSTEMI) myocardial infarction; J44.1 Chronic obstructive pulmonary disease with (acute) exacerbation; J44.0 Chronic obstructive pulmonary disease with (acute) lower respiratory infection; E87.1 Hypo-osmolality and hyponatremia; E44.1 Mild protein-calorie malnutrition; Z68.1 Body mass index [BMI] 19.9 or less, adult; Y95 Nosocomial condition; D63.8 Anemia in other chronic diseases classified elsewhere; F41.9 Anxiety disorder, unspecified; D46.9 Myelodysplastic syndrome, unspecified; E03.9 Hypothyroidism, unspecified; F32.9 Major depressive disorder, single episode, unspecified; Z85.21 Personal history of malignant neoplasm of larynx; Z88.0 Allergy status to penicillin; Z88.1 Allergy status to other antibiotic agents; Z91.041 Radiographic dye allergy status; Z91.040 Latex allergy status; Z88.5 Allergy status to narcotic agent; Z91.013 Allergy to seafood; Z88.2 Allergy status to sulfonamides; Z88.8 Allergy status to other drugs, medicaments and biological substances; Z91.048 Other nonmedicinal substance allergy status; Z79.899 Other long term (current) drug therapy; Z87.891 Personal history of nicotine dependence; Z93.0 Tracheostomy status
CPT/HCPCS: 36415; 36430; 36600; 71046; 74022; 80048; 80053; 82803; 83605; 83735; 83880; 84295; 84484; 85018; 85025; 85610; 86140; 86850; 86900; 86901; 86920; 86922; 87040; 87070; 87205; 87804; 87804-59; 93005; 94640; 94760; 96365; 99284-GF; 99285; A9270-GY; J1650; J1940; J1956; J2405; J2550; J2920; J7030; J7040; J7050; J7613-GY; J7620-GY; P9016

== ENCOUNTER 2018-10-24 01:45 | Emergency (ER) | payer MEDICARE, BC ==
[2018-10-24] MEDS ORDERED: Sodium Chloride 0.9% 10 ML Syringe FLUSH PRN (02:22)
[2018-10-24] MEDS ORDERED: Albuterol/Ipratropium 3.0-0.5 MG/3 ML Neb Soln NEB ONE (02:23)
[2018-10-24] MEDS ORDERED: methylPREDNISolone Sodium Succinate 40 MG/1 ML SDV IVPUSH ONE (02:23)
--- NOTE | 2018-10-24 02:58 | EDM.PDOC ---
ED HPI GENERAL MEDICAL PROBLEM - General Chief Complaint: Respiratory Problem Stated Complaint: Shortness of breath Time Seen by Provider: 10/24/18 02:06 Source of Information: Reports: Patient, EMS, Family History Limitations: Reports: Physical Impairment - History of Present Illness INITIAL COMMENTS - FREE TEXT/NARRATIVE: Patient brought in via EMS with complaints of shortness of breath. Upon EMS arrival patient oxygen saturations were 89% and she had a oxygen mask placed over her stoma. This did improve her oxygenation. 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 Post surgically she developed fever, leukocytosis and the area was opened with an I and D performed. Sent home with elevated WBC but this finding was believed to be secondary to he myelodysplastic disorder as she appeared otherwise well. She states her neck is painful, red, and swollen. No recent drainage. She denies any chest pain, abdominal pain. She does endorse diarrhea, likely from the antibiotics. No other complaints this evening. Onset: Today, Sudden Duration: Intermittent Location: Reports: Neck - Related Data Allergies Allergy/AdvReac Type Severity Reaction Status Date / Time adhesive Allergy Rash Verified 08/17/18 12:07 amoxicillin Allergy Rash Verified 08/17/18 12:07 cephalexin Allergy Rash Verified 08/17/18 12:07 doxycycline Allergy Other Verified 08/17/18 12:07 erythromycin base Allergy Rash Verified 08/17/18 12:07 hydroxyurea [From Hydrea] Allergy Other Verified 08/17/18 12:07 iodine Allergy Hives Verified 08/17/18 12:07 latex Allergy Rash Verified 08/17/18 12:07 Penicillins Allergy Rash Verified 08/17/18 12:07 Sulfa (Sulfonamide Allergy Rash Verified 08/17/18 12:07 Antibiotics) aspirin AdvReac Bleeding Verified 08/17/18 12:07 Fish Containing Products AdvReac Nausea Verified 08/17/18 13:26 hydrocodone [From [place]] AdvReac Nausea Verified 08/17/18 13:26 NSAIDS (Non-Steroidal AdvReac Bleeding Verified 08/17/18 13:26 Anti-Inflamma perfume AdvReac Headache Verified 08/17/18 13:26 Home Meds: Home Meds Citalopram Hydrobromide [Celexa] 20 mg PO BEDTIME 01/02/15 [History] Omeprazole [Prilosec] 20 mg PO DAILY 01/02/15 [History] Albuterol [Proventil Neb Soln] 2.5 mg NEB QID 08/17/18 [History] Arformoterol [Brovana] 15 mcg NEB BID 08/17/18 [History] Budesonide [Pulmicort] 0.5 mg NEB BID 08/17/18 [History] Levothyroxine [Synthroid] 50 mcg PO DAILY 08/17/18 [History] Epoetin Jhony [Procrit] 20,000 unit SUBCUT WE 08/18/18 [History] Sodium Chloride 3% 3 ml NEB Q2H PRN 08/18/18 [History] Albuterol/Ipratropium [DuoNeb 3.0-0.5 MG/3 ML] 3 ml NEB Q4HRRT PRN #0 neb [Rx] Levofloxacin/Dextrose 5%-Water [Levaquin in D5W 500 MG/100 ML] 500 mg IV Q24H bag 08/21/18 [Rx] Melatonin 6 mg PO BEDTIME PRN tablet 08/21/18 [Rx] QUEtiapine [SEROquel] 12.5 mg PO BEDTIME tablet 08/21/18 [Rx] Sodium Chloride 0.9% [Saline Flush] 10 ml FLUSH ASDIRECTED PRN syringe [Rx] methylPREDNISolone Sod Succ [Solu-MEDROL] 40 mg IVPUSH Q8H sdv 08/21/18 [Rx] Past Medical History HEENT History: Reports: Other (See Below) Other HEENT History: vocal cord cyst Respiratory History: Reports: Bronchitis, Recurrent, COPD, Pneumonia, Recurrent , SOB, Other (See Below) Other Respiratory History: Pulmonary emphysema, centrilobular emphysema, acute respiratory failure with hypoxia Gastrointestinal History: Reports: GI Bleed, Hiatal Hernia, Other (See Below) Other Gastrointestinal History: 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, gastroentestinal hemorrhage Genitourinary History: Reports: Other (See Below) Other Genitourinary History: atrophic vaginitis CLINICAL NURSING INSTRUCTOR History: Reports: Other (See Below) Other CLINICAL NURSING INSTRUCTOR History: Atrophic vaginitis Musculoskeletal History: Reports: Other (See Below) Other Musculoskeletal History: broke right foot 8 years ago Psychiatric History: Reports: Anxiety, Depression Endocrine/Metabolic History: Reports: Hypothyroidism, Osteopenia Hematologic History: Reports: Anemia, Iron Deficiency, Other (See Below) Other Hematologic History: Myelodysplastic Syndrome, thrombocytosis, bone marrow biopsy Oncologic (Cancer) History: Reports: Other (See Below) 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 Dermatologic History: Reports: Other (See Below) Other Dermatologic History: cutaneous abscess of chest wall - Infectious Disease History Infectious Disease History: Reports: C-Difficile, Other (See Below) Other Infectious Disease History: H. Pylori infection - Past Surgical History HEENT Surgical History: Reports: Cataract Surgery, Other (See Below) Other HEENT Surgeries/Procedures: laryngectomy GI Surgical History: Reports: Colonoscopy, Other (See Below) Other GI Surgeries/Procedures: endoscopy Dermatological Surgical History: Reports: Skin Biopsy Social & Family History - Family History Family Medical History: Noncontributory - Caffeine Use Caffeine Use: Reports: Coffee ED ROS GENERAL - Review of Systems Review Of Systems: See Below Constitutional: Reports: No Symptoms HEENT: Reports: Dental Pain Respiratory: Reports: Shortness of Breath Cardiovascular: Reports: No Symptoms Endocrine: Reports: No Symptoms GI/Abdominal: Reports: No Symptoms : Reports: No Symptoms Musculoskeletal: Reports: Neck Pain Skin: Reports: Bruising, Wound Neurological: Reports: No Symptoms Psychiatric: Reports: No Symptoms Hematologic/Lymphatic: Reports: No Symptoms Immunologic: Reports: No Symptoms ED EXAM, GENERAL - Physical Exam Exam: See Below Exam Limited By: No Limitations General Appearance: Alert, WD/WN, No Apparent Distress Eye Exam: Bilateral Eye: EOMI, Normal Inspection Ears: Normal TMs Nose: Normal Inspection, Normal Mucosa, No Blood Throat/Mouth: Normal Inspection, Normal Lips, Normal Teeth, Normal Gums, Normal Oropharynx, No Airway Compromise, Other (stoma area to neck is intact, clear, no mucosal secretions) Head: Atraumatic, Normocephalic Neck: Supple, Lymphadenopathy (L), Lymphadenopathy (R), Tender Lateral (left), Thyromegaly Respiratory/Chest: Crackles, Wheezing Cardiovascular: Normal Peripheral Pulses, No Edema, No Gallop, No Murmur, Tachycardia Peripheral Pulses: 2+: Posterior Tibial (L), Posterior Tibial (R), Dorsalis Pedis (L), Dorsalis Pedis (R) GI/Abdominal: Normal Bowel Sounds, Soft, Non-Tender, No Organomegaly, No Distention, No Abnormal Bruit, No Mass Back Exam: Normal Inspection, Full Range of Motion, NT Extremities: Normal Inspection, Normal Range of Motion, Non-Tender, Normal Capillary Refill, No Pedal Edema Neurological: Alert, Oriented, CN II-XII Intact, Normal Cognition, Normal Gait, Normal Reflexes, No Motor/Sensory Deficits Psychiatric: Normal Affect, Normal Mood Skin Exam: Ecchymosis, Erythema, Increased Warmth, Wound/Incision Course - Vital Signs Last Recorded V/S: Last Vital Signs Temp 35.8 C 10/24/18 02:15 Pulse 98 10/24/18 04:20 Resp 20 10/24/18 04:20 BP 105/83 10/24/18 04:20 Pulse Ox 98 10/24/18 05:00 - Orders/Labs/Meds Orders: Active Orders 24 hr Category Date Time Status EKG Documentation Completion [RC] STAT Care 10/24/18 02:19 Active RT Aerosol Therapy [RC] ASDIRECTED Care 10/24/18 02:23 Active CULTURE BLOOD [BC] Stat Lab 10/24/18 02:35 Results CULTURE BLOOD [BC] Stat Lab 10/24/18 02:42 Received Blood Culture x2 Reflex Set [OM.PC] Stat Oth 10/24/18 02:33 Ordered Saline Lock Insert [OM.PC] Routine Oth 10/24/18 02:22 Ordered Labs: Laboratory Tests 10/24/18 10/24/18 10/24/18 Range/Units 02:35 02:35 02:35 WBC 37.5 H* (4.0-10.0) x10^3/uL RBC 3.56 L (4.00-5.50) x10^6/uL Hgb 9.5 L (12.0-16.0) g/dL Hct 29.8 L (33.0-47.0) % MCV 83.7 D (78.0-93.0) fL MCH 26.7 (26.0-32.0) pg MCHC 31.9 L (32.0-36.0) g/dL RDW Coeff of Marcos 27.6 H (10.0-15.0) % Plt Count 356 D (130-400) x10^3/uL Add Manual Diff Yes Neutrophils % (Manual) 91 H (50-80) % Band Neutrophils % 3 (0-6) % Lymphocytes % (Manual) 2 L (25-50) % Monocytes % (Manual) 2 (2-11) % Metamyelocytes % 1 H (0) % Myelocytes % 1 H (0) % Nucleated RBCs 1 (0-5) /100WBC Platelet Estimate Increased H Giant Platelets Few H Polychromasia 1+ slight H Hypochromasia 1+ slight H Poikilocytosis 2+ moderate H Basophilic Stippling 1+ slight H Anisocytosis 3+ marked H Spherocytes 1+ slight H Target Cells 1+ slight H Tear Drop Cells 1+ slight H Ovalocytes 1+ slight H PT 13.0 H (10.0-12.8) SEC INR 1.1 L (2.0-3.5) Sodium 140 D (136-145) mmol/L Potassium 3.4 L (3.5-5.1) mmol/L Chloride 100 (98-107) mmol/L Carbon Dioxide 26 (21-32) mmol/L Anion Gap 17.4 (10-20) mmol/L BUN 20 H (7-18) mg/dL Creatinine 0.8 (0.55-1.02) mg/dL Est Cr Clr Drug Dosing 54.82 mL/min Estimated GFR (MDRD) > 60 Glucose 150 H (74-106) mg/dL Lactic Acid (0.4-2.0) mmol/L Calcium 5.8 L* D (8.5-10.1) mg/dL Corrected Calcium 6.68 L* D (8.5-10.1) mg/dL Total Bilirubin 0.9 (0.2-1.0) mg/dL AST 23 (15-37) U/L ALT 16 (14-59) U/L Alkaline Phosphatase 86 (46-116) U/L Troponin I < 0.017 (<=0.056) ng/mL C-Reactive Protein (<=0.9) mg/dL NT-Pro-B Natriuret Pep 610 H (<=450) pg/mL Total Protein 7.2 (6.4-8.2) g/dL Albumin 2.9 L (3.4-5.0) g/dL Globulin 4.3 Albumin/Globulin Ratio 0.67 TSH, Ultra Sensitive 45.294 H (0.358-3.74) uIU/mL 10/24/18 10/24/18 Range/Units 02:35 02:35 WBC (4.0-10.0) x10^3/uL RBC (4.00-5.50) x10^6/uL Hgb (12.0-16.0) g/dL Hct (33.0-47.0) % MCV (78.0-93.0) fL MCH (26.0-32.0) pg MCHC (32.0-36.0) g/dL RDW Coeff of Marcos (10.0-15.0) % Plt Count (130-400) x10^3/uL Add Manual Diff Neutrophils % (Manual) (50-80) % Band Neutrophils % (0-6) % Lymphocytes % (Manual) (25-50) % Monocytes % (Manual) (2-11) % Metamyelocytes % (0) % Myelocytes % (0) % Nucleated RBCs (0-5) /100WBC Platelet Estimate Giant Platelets Polychromasia Hypochromasia Poikilocytosis Basophilic Stippling Anisocytosis Spherocytes Target Cells Tear Drop Cells Ovalocytes PT (10.0-12.8) SEC INR (2.0-3.5) Sodium (136-145) mmol/L Potassium (3.5-5.1) mmol/L Chloride (98-107) mmol/L Carbon Dioxide (21-32) mmol/L Anion Gap (10-20) mmol/L BUN (7-18) mg/dL Creatinine (0.55-1.02) mg/dL Est Cr Clr Drug Dosing mL/min Estimated GFR (MDRD) Glucose (74-106) mg/dL Lactic Acid 1.1 (0.4-2.0) mmol/L Calcium (8.5-10.1) mg/dL Corrected Calcium (8.5-10.1) mg/dL Total Bilirubin (0.2-1.0) mg/dL AST (15-37) U/L ALT (14-59) U/L Alkaline Phosphatase (46-116) U/L Troponin I (<=0.056) ng/mL C-Reactive Protein 2.1 H (<=0.9) mg/dL NT-Pro-B Natriuret Pep (<=450) pg/mL Total Protein (6.4-8.2) g/dL Albumin (3.4-5.0) g/dL Globulin Albumin/Globulin Ratio TSH, Ultra Sensitive (0.358-3.74) uIU/mL Meds: Medications Discontinued Medications Generic Name Dose Route Start Last Admin Trade Name Freq PRN Reason Stop Dose Admin Albuterol/Ipratropium 3 ml 10/24/18 02:23 10/24/18 02:40 Duoneb 3.0-0.5 Mg/3 Ml NEB 10/24/18 02:24 3 ml ONETIME ONE Administration Vancomycin HCl 1 gm/ Sodium 250 mls @ 250 mls/hr 10/24/18 03:03 10/24/18 03: 30 Chloride IV 10/24/18 04:02 250 mls/hr STAT ONE Administration Methylprednisolone Sodium Succinate 40 mg 10/24/18 02:23 10/24/18 02:45 Solu-Medrol IVPUSH 10/24/18 02:24 40 mg ONETIME ONE Administration Sodium Chloride 10 ml 10/24/18 02:22 Saline Flush FLUSH ASDIRECTED PRN Keep Vein Open - Radiology Interpretation Free Text/Narrative:: x-ray negative for acute chest diagnoses CT of neck soft tissue shows area of hematoma measuring 11.3 x 6.2 x 3.7 cm left parapharyngeal collection Departure - Departure Time of Disposition: 05:00 Disposition: DC/Tfer to Acute Hospital 02 Condition: Fair Clinical Impression: Post surgical complication Qualifiers: Surgical complication system/body Area: skin Surgical complication type: hematoma Procedure type: non-dermatologic Qualified Code(s): L76.32 - Postprocedural hematoma of skin and subcutaneous tissue following other procedure - Discharge Information *PRESCRIPTION DRUG MONITORING PROGRAM REVIEWED*: Not Applicable *COPY OF PRESCRIPTION DRUG MONITORING REPORT IN PATIENT PEDRO: Not Applicable Referrals: PCP,None [Primary Care Provider] - Forms: ED Department Discharge, Interfacility Transfer [facility] ED Communication - ED Communication Date/Time Date: 10/24/18 Time Called: 04:42 - Discussed Case With (1) Discussed Case With (1): Admitting Provider (Dr. Rothmna and ENT road freight conductor physician Dr. Hall regarding patient. Report given and accepted. [facility] be going to [facility] to [facility]) - Problem List & Annotations (1) Post surgical complication SNOMED Code(s): 295875088 Code(s): T81.9XXA - UNSPECIFIED COMPLICATION OF PROCEDURE, INITIAL ENCOUNTER Status: Acute Priority: Medium Qualifiers: Surgical complication system/body Area: skin Surgical complication type: hematoma Procedure type: non-dermatologic Qualified Code(s): L76.32 - Postprocedural hematoma of skin and subcutaneous tissue following other procedure - Problem List Review Problem List Initiated/Reviewed/Updated: Yes - My Orders Last 24 Hours: My Active Orders 10/24/18 02:19 EKG Documentation Completion [RC] STAT 10/24/18 02:22 Saline Lock Insert [OM.PC] Routine 10/24/18 02:23 RT Aerosol Therapy [RC] ASDIRECTED 10/24/18 02:33 Blood Culture x2 Reflex Set [OM.PC] Stat 10/24/18 02:35 CULTURE BLOOD [BC] Stat 10/24/18 02:42 CULTURE BLOOD [BC] Stat - Assessment/Plan Last 24 Hours: My Active Orders 10/24/18 02:19 EKG Documentation Completion [RC] STAT 10/24/18 02:22 Saline Lock Insert [OM.PC] Routine 10/24/18 02:23 RT Aerosol Therapy [RC] ASDIRECTED 10/24/18 02:33 Blood Culture x2 Reflex Set [OM.PC] Stat 10/24/18 02:35 CULTURE BLOOD [BC] Stat 10/24/18 02:42 CULTURE BLOOD [BC] Stat Assessment:: post operative hematoma leukocytosis
[2018-10-24 03:20] LABS: CHLORIDE,CL 100 mmol/L (98-107); SODIUM,NA 140 mmol/L (136-145)
[2018-10-24 03:21] LABS: ANION GAP 17.4 mmol/L (10-20)
[2018-10-24 04:25] VITALS: BP 105/83
--- NOTE | 2018-10-24 11:19 | CT ---
[id number] CT/CT Neck Soft Tissue WO IV Exam: CT Neck Soft Tissue WO IV Clinical Data: SOFT TISSUE NECK SWELLING. SUSPECTED ABSCESS. COMPARISON: NO PREVIOUS SIMILAR EXAM IS AVAILABLE. FINDINGS: The lack of IV contrast limits the study. There is a retropharyngeal or prevertebral soft tissue density present extending from the C2 level to the C7 level. Currently, this is considered posterior to the alar facia and within the danger space. This could extend to the mediastinum. There is also a nasogastric tube in place. There is also a tracheostomy. Cephalad to the tracheostomy, there is a combination of soft tissue mass, air density, necrosis, and probable hemorrhage extending a length of at least 8 cm. Discussion was undertaken with referring medical care provider at the time of the dictation. The patient was transferred to a tertiary care facility for surgical intervention. There may be a degree of active hemorrhage. There is significant centrilobular emphysema and bullous lung disease. IMPRESSION: SIGNIFICANTLY ABNORMAL EXAM.. INFECTION AND HEMATOMA DESCRIBED ABOVE. Alex Rangel MD 10/24/18 [id number] Thank you for allowing us to participate in the care of your patient.
--- NOTE | 2018-10-24 11:20 | CR ---
[id number] RAD/RAD Chest PA or AP 1V EXAM: SINGLE VIEW CHEST. INDICATION: SHORTNESS OF BREATH COMPARISON: CORRELATION IS MADE WITH THE EXAM OF AUGUST 21, 2018. FINDINGS: An NG tube is seen in the stomach. There is no pneumonia or edema. There are bibasilar hypoventilatory changes. There are surgical clips in the left axillary region. There are surgical clips at the base of the neck. IMPRESSION: NG TUBE IN STOMACH. NO OBVIOUS PNEUMONIA OR EDEMA OTHERWISE. Alex Rangel MD 10/24/18 [id number] Thank you for allowing us to participate in the care of your patient.
== END 2018-10-24 05:05 | disposition short-term general hospital (02) ==
LOC: VM.ED 01:45
DX: L76.32 Postprocedural hematoma of skin and subcutaneous tissue following other procedure (principal); J44.9 Chronic obstructive pulmonary disease, unspecified; C76.0 Malignant neoplasm of head, face and neck; D46.9 Myelodysplastic syndrome, unspecified; F41.9 Anxiety disorder, unspecified; F32.9 Major depressive disorder, single episode, unspecified; E03.9 Hypothyroidism, unspecified; Z88.8 Allergy status to other drugs, medicaments and biological substances; Z88.5 Allergy status to narcotic agent; Z88.1 Allergy status to other antibiotic agents; Z91.040 Latex allergy status; Z79.899 Other long term (current) drug therapy
CPT/HCPCS: 36415; 70490; 71045; 80053; 83605; 83880; 84443; 84484; 85025; 85610; 86140; 87040; 93005; 94640; 96365; 96375; 99285; J2920; J3370; J7050; 99283-GF; J7620-GY

== ENCOUNTER 2018-12-15 03:00 | Emergency (ER) | payer MEDICARE, BC ==
[2018-12-15] MEDS: Lactated Ringers 1,000 ML IV SCH (03:15)
--- NOTE | 2018-12-15 03:31 | EDM.PDOC ---
ED HPI GENERAL MEDICAL PROBLEM - General Chief Complaint: ENT Problem Stated Complaint: Bleeding from her throat, recent throat surgery Time Seen by Provider: 12/15/18 03:00 Source of Information: Reports: Patient, Family - History of Present Illness INITIAL COMMENTS - FREE TEXT/NARRATIVE: Pt. presents to ER with complaints of bleeding in her hypopharynx. Pt. has a complex history including laryngeal cancer and neck abscess that has required resection from what I can obtain from family. Pt. states that when she was in the hospital, she had bleeding to the hypopharynx requiring surgical cauterization. Pt. states that Dr. Larson is her ENT. Pt. has a trach and there is no active bleeding from the stoma. She presents to ER with a container with some large blood clots. It appears that the bleeding has slowed some since initial hemorrhage occurred. Onset Date: 12/15/18 - Related Data Allergies Allergy/AdvReac Type Severity Reaction Status Date / Time adhesive Allergy Rash Verified 08/17/18 12:07 amoxicillin Allergy Rash Verified 08/17/18 12:07 cephalexin Allergy Rash Verified 08/17/18 12:07 doxycycline Allergy Other Verified 08/17/18 12:07 erythromycin base Allergy Rash Verified 08/17/18 12:07 hydroxyurea [From [place]] Allergy Other Verified 08/17/18 12:07 iodine Allergy Hives Verified 08/17/18 12:07 latex Allergy Rash Verified 08/17/18 12:07 Penicillins Allergy Rash Verified 08/17/18 12:07 Sulfa (Sulfonamide Allergy Rash Verified 08/17/18 12:07 Antibiotics) aspirin AdvReac Bleeding Verified 08/17/18 12:07 Fish Containing Products AdvReac Nausea Verified 08/17/18 13:26 hydrocodone [From [place]] AdvReac Nausea Verified 08/17/18 13:26 NSAIDS (Non-Steroidal AdvReac Bleeding Verified 08/17/18 13:26 Anti-Inflamma perfume AdvReac Headache Verified 08/17/18 13:26 Home Meds: Home Meds Citalopram Hydrobromide [Celexa] 20 mg PO BEDTIME 01/02/15 [History] Omeprazole [Prilosec] 20 mg PO DAILY 01/02/15 [History] Albuterol [Proventil Neb Soln] 2.5 mg NEB QID 08/17/18 [History] Arformoterol [Brovana] 15 mcg NEB BID 08/17/18 [History] Budesonide [Pulmicort] 0.5 mg NEB BID 08/17/18 [History] Levothyroxine [Synthroid] 50 mcg PO DAILY 08/17/18 [History] Epoetin Jhony [Procrit] 20,000 unit SUBCUT WE 08/18/18 [History] Sodium Chloride 3% 3 ml NEB Q2H PRN 08/18/18 [History] Albuterol/Ipratropium [DuoNeb 3.0-0.5 MG/3 ML] 3 ml NEB Q4HRRT PRN #0 neb [Rx] Levofloxacin/Dextrose 5%-Water [Levaquin in D5W 500 MG/100 ML] 500 mg IV Q24H bag 08/21/18 [Rx] Melatonin 6 mg PO BEDTIME PRN tablet 08/21/18 [Rx] QUEtiapine [SEROquel] 12.5 mg PO BEDTIME tablet 08/21/18 [Rx] Sodium Chloride 0.9% [Saline Flush] 10 ml FLUSH ASDIRECTED PRN syringe [Rx] methylPREDNISolone Sod Succ [Solu-MEDROL] 40 mg IVPUSH Q8H sdv 08/21/18 [Rx] Past Medical History HEENT History: Reports: Other (See Below) Other HEENT History: vocal cord cyst Respiratory History: Reports: Bronchitis, Recurrent, COPD, Pneumonia, Recurrent , SOB, Other (See Below) Other Respiratory History: Pulmonary emphysema, centrilobular emphysema, acute respiratory failure with hypoxia Gastrointestinal History: Reports: GI Bleed, Hiatal Hernia, Other (See Below) Other Gastrointestinal History: 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, gastroentestinal hemorrhage Genitourinary History: Reports: Other (See Below) Other Genitourinary History: atrophic vaginitis MANNEQUIN MOUNTER History: Reports: Other (See Below) Other MANNEQUIN MOUNTER History: Atrophic vaginitis Musculoskeletal History: Reports: Other (See Below) Other Musculoskeletal History: broke right foot 8 years ago Psychiatric History: Reports: Anxiety, Depression Endocrine/Metabolic History: Reports: Hypothyroidism, Osteopenia Hematologic History: Reports: Anemia, Iron Deficiency, Other (See Below) Other Hematologic History: Myelodysplastic Syndrome, thrombocytosis, bone marrow biopsy Oncologic (Cancer) History: Reports: Other (See Below) 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 Dermatologic History: Reports: Other (See Below) Other Dermatologic History: cutaneous abscess of chest wall - Infectious Disease History Infectious Disease History: Reports: C-Difficile, Other (See Below) Other Infectious Disease History: H. Pylori infection - Past Surgical History HEENT Surgical History: Reports: Cataract Surgery, Other (See Below) Other HEENT Surgeries/Procedures: laryngectomy GI Surgical History: Reports: Colonoscopy, Other (See Below) Other GI Surgeries/Procedures: endoscopy Dermatological Surgical History: Reports: Skin Biopsy Social & Family History - Family History Family Medical History: Noncontributory - Caffeine Use Caffeine Use: Reports: Coffee ED ROS GENERAL - Review of Systems Review Of Systems: See Below Constitutional: Reports: No Symptoms HEENT: Reports: Other (see above) Respiratory: Reports: No Symptoms. Denies: Shortness of Breath Cardiovascular: Reports: No Symptoms Endocrine: Reports: No Symptoms GI/Abdominal: Reports: No Symptoms : Reports: No Symptoms Musculoskeletal: Reports: No Symptoms Skin: Reports: No Symptoms Neurological: Reports: No Symptoms Psychiatric: Reports: No Symptoms Hematologic/Lymphatic: Reports: No Symptoms Immunologic: Reports: No Symptoms ED EXAM, GENERAL - Physical Exam Exam: See Below Exam Limited By: No Limitations General Appearance: Alert, WD/WN, No Apparent Distress Throat/Mouth: Normal Inspection, No Airway Compromise, Other (large blood clots noted to hypopharynx. unable to see exactly where the bleeding is originating from due to clots. ) Head: Atraumatic, Normocephalic Neck: Normal Inspection, Supple, Non-Tender Respiratory/Chest: No Respiratory Distress, Lungs Clear, Normal Breath Sounds, No Accessory Muscle Use Cardiovascular: Normal Peripheral Pulses GI/Abdominal: Soft, Non-Tender Extremities: Normal Inspection, Normal Range of Motion, Non-Tender, No Pedal Edema Neurological: Alert, Oriented, CN II-XII Intact, Normal Cognition Psychiatric: Anxious Skin Exam: Warm, Dry, Pallor Course - Orders/Labs/Meds Orders: Active Orders 24 hr Category Date Time Status CBC WITH AUTO DIFF [HEME] Stat Lab 12/15/18 03:17 Ordered COMPREHENSIVE METABOLIC PN,CMP [CHEM] Stat Lab 12/15/18 03:17 Ordered INR,PT,PROTHROMBIN TIME [COAG] Stat Lab 12/15/18 03:16 Ordered MAGNESIUM [CHEM] Stat Lab 12/15/18 03:17 Ordered PHOSPHORUS [CHEM] Stat Lab 12/15/18 03:17 Ordered Departure - Departure Time of Disposition: 03:39 Disposition: DC/Tfer to [facility] 02 Clinical Impression: Pharyngeal hemorrhage - Discharge Information Forms: ED Department Discharge, Interfacility Transfer EMTALA - Problem List Review Problem List Initiated/Reviewed/Updated: Yes - My Orders Last 24 Hours: My Active Orders 12/15/18 03:16 INR,PT,PROTHROMBIN TIME [COAG] Stat 12/15/18 03:17 CBC WITH AUTO DIFF [HEME] Stat COMPREHENSIVE METABOLIC PN,CMP [CHEM] Stat MAGNESIUM [CHEM] Stat PHOSPHORUS [CHEM] Stat - Assessment/Plan Last 24 Hours: My Active Orders 12/15/18 03:16 INR,PT,PROTHROMBIN TIME [COAG] Stat 12/15/18 03:17 CBC WITH AUTO DIFF [HEME] Stat COMPREHENSIVE METABOLIC PN,CMP [CHEM] Stat MAGNESIUM [CHEM] Stat PHOSPHORUS [CHEM] Stat Plan: Pt. is hemodynamically stable on arrival to ER. In reviewing her chart, it appears she is not anticoagulated. Subsequently contact [facility] [address] Larson and subsequently Dr. Hill who accepts the patient in transfer. Started LR at 125ml/hr. O2 applied over stoma and her O2 sat was 100% . She was be transported via [facility] ground ambulance.
[2018-12-15 03:50] LABS: CHLORIDE,CL 102 mmol/L (98-107); SODIUM,NA 144 mmol/L (136-145)
[2018-12-15 04:03] LABS: ANION GAP 11.5 mmol/L (10-20)
[2018-12-15 04:28] VITALS: BP 103/54
== END 2018-12-15 03:55 | disposition short-term general hospital (02) ==
LOC: VM.ED 03:00
DX: R04.1 Hemorrhage from throat (principal); F41.9 Anxiety disorder, unspecified; F32.9 Major depressive disorder, single episode, unspecified; J44.9 Chronic obstructive pulmonary disease, unspecified; Z79.899 Other long term (current) drug therapy; Z88.2 Allergy status to sulfonamides; Z88.5 Allergy status to narcotic agent; Z88.1 Allergy status to other antibiotic agents; Z88.8 Allergy status to other drugs, medicaments and biological substances; Z98.890 Other specified postprocedural states
CPT/HCPCS: 36415; 80053; 83735; 84100; 85025; 85610; 94760; 96360; 99284-GF; 99285-25; J7120

== ENCOUNTER 2019-02-11 20:24 | Emergency (ER) | payer MEDICARE, BC ==
[2019-02-11] MEDS ORDERED: Acetaminophen 500 MG Tab PO ONE (21:00)
[2019-02-11 21:16] LABS: CHLORIDE,CL 100 mmol/L (98-107); SODIUM,NA 139 mmol/L (136-145)
[2019-02-11 21:19] LABS: ANION GAP 11.1 mmol/L (10-20)
--- NOTE | 2019-02-11 21:38 | EDM.PDOC ---
ED HPI GENERAL MEDICAL PROBLEM - General Stated Complaint: GENERAL Time Seen by Provider: 02/11/19 20:25 Source of Information: Reports: Patient, Family History Limitations: Reports: No Limitations - History of Present Illness INITIAL COMMENTS - FREE TEXT/NARRATIVE: Pt. presents to ER at the request of her oncologist. She is currently undergoing chemotherapy and had routine labs today. She was told that her calcium was elevated and her potassium was low and was advised to come to the nearest ER. Pt. states that she feels weak. Pt. has a history of laryngeal cancer and is undergoing chemotherapy and chemotherapy. She states that she has been able to ambulate without assistance, but feels "dizzy". She has been having increased weakness for some time. She had a Neulasta injection earlier today. states that the patient has been extremely fatigued for the past several days. Denies any cough. No dysuria. No chest pain or shortness of breath. No nausea, vomiting, or diarrhea. Pt. complains of headache, vertigo and extreme fatigue. states that her appetite has been poor. Onset: Today Location: Reports: Head, Generalized Quality: Reports: Ache Severity: Moderate - Related Data Allergies Allergy/AdvReac Type Severity Reaction Status Date / Time adhesive Allergy Rash Verified 02/11/19 22:09 amoxicillin Allergy Rash Verified 02/11/19 22:09 ceftriaxone Allergy Rash Verified 02/11/19 22:09 cephalexin Allergy Rash Verified 02/11/19 22:09 erythromycin base Allergy Rash Verified 02/11/19 22:09 hydroxyurea [From Hydrea] Allergy Other Verified 02/11/19 22:09 iodine Allergy Hives Verified 02/11/19 22:09 latex Allergy Rash Verified 02/11/19 22:09 Penicillins Allergy Rash Verified 02/11/19 22:09 Sulfa (Sulfonamide Allergy Rash Verified 02/11/19 22:09 Antibiotics) aspirin AdvReac Bleeding Verified 02/11/19 22:09 doxycycline AdvReac Rectal Verified 02/11/19 22:09 Bleeding Fish Containing Products AdvReac Nausea Verified 02/11/19 22:09 hydrocodone [From [place]] AdvReac Nausea Verified 02/11/19 22:09 NSAIDS (Non-Steroidal AdvReac Bleeding Verified 02/11/19 22:09 Anti-Inflamma perfume AdvReac Headache Verified 02/11/19 22:09 Home Meds: Home Meds Citalopram Hydrobromide [Celexa] 20 mg PO BEDTIME 01/02/15 [History] Omeprazole [Prilosec] 20 mg PO DAILY 01/02/15 [History] Arformoterol [Brovana] 15 mcg NEB BID 08/17/18 [History] Budesonide [Pulmicort] 0.5 mg NEB BID 08/17/18 [History] Levothyroxine [Synthroid] 200 mcg PO DAILY 08/17/18 [History] Epoetin Jhony [Procrit] 20,000 unit SUBCUT Q7D 08/18/18 [History] Calcitriol [Rocaltrol] 1 mcg PO TID 02/02/19 [History] Calcium Carbonate [Calcium] 1,000 mg PO TID 02/02/19 [History] Cholecalciferol (Vitamin D3) [Vitamin D3] 400 unit PO TID 02/02/19 [History] LORazepam [Ativan] 0.5 - 1 mg PO ASDIRECTED PRN 02/02/19 [History] Polyethylene Glycol 3350 [MiraLAX] 17 gm PO DAILY PRN 02/02/19 [History] DAPTOmycin [Cubicin] 330 mg IV Q24H 02/03/19 [History] cefTRIAXone [Rocephin] 2 gm IV Q24H 02/03/19 [History] metroNIDAZOLE [Flagyl] 500 mg PO TID 02/03/19 [History] Past Medical History HEENT History: Reports: Other (See Below) Other HEENT History: laryngeal cancer, vocal cord cyst Cardiovascular History: Reports: Cardiomyopathy, Heart Failure, Other (See Below ) Other Cardiovascular History: aortic disorder Respiratory History: Reports: Bronchitis, Recurrent, COPD, Pneumonia, Recurrent , SOB, Other (See Below) Other Respiratory History: Pulmonary emphysema, centrilobular emphysema, acute respiratory failure with hypoxia Gastrointestinal History: Reports: GI Bleed, Hiatal Hernia, Other (See Below) Other Gastrointestinal History: 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, gastroentestinal hemorrhage Genitourinary History: Reports: Other (See Below) Other Genitourinary History: atrophic vaginitis RESIDENT PHYSICIAN History: Reports: Other (See Below) Other RESIDENT PHYSICIAN History: Atrophic vaginitis Musculoskeletal History: Reports: Other (See Below) Other Musculoskeletal History: broke right foot 8 years ago Neurological History: Reports: Neuropathy, Peripheral, Other (See Below) Other Neuro History: myelodysplastic syndrome Psychiatric History: Reports: Anxiety, Depression Endocrine/Metabolic History: Reports: Hypothyroidism, Osteopenia Hematologic History: Reports: Anemia, Iron Deficiency, Other (See Below) Other Hematologic History: Myelodysplastic Syndrome, thrombocytosis, bone marrow biopsy Oncologic (Cancer) History: Reports: Other (See Below) 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 Dermatologic History: Reports: Other (See Below) Other Dermatologic History: cutaneous abscess of chest wall - Infectious Disease History Infectious Disease History: Reports: C-Difficile, Other (See Below) Other Infectious Disease History: H. Pylori infection - Past Surgical History Other GI Surgeries/Procedures: endoscopy Social & Family History - Family History Family Medical History: Noncontributory - Caffeine Use Caffeine Use: Reports: Coffee ED ROS GENERAL - Review of Systems Review Of Systems: See Below Constitutional: Reports: Malaise, Weakness, Fatigue. Denies: Fever HEENT: Reports: No Symptoms Respiratory: Reports: No Symptoms Cardiovascular: Reports: No Symptoms Endocrine: Reports: No Symptoms GI/Abdominal: Reports: No Symptoms : Reports: No Symptoms Musculoskeletal: Reports: No Symptoms Skin: Reports: Pallor Neurological: Reports: Headache Psychiatric: Reports: No Symptoms Hematologic/Lymphatic: Reports: No Symptoms Immunologic: Reports: No Symptoms ED EXAM, GENERAL - Physical Exam Exam: See Below Exam Limited By: No Limitations General Appearance: Alert, WD/WN Eye Exam: Bilateral Eye: EOMI, Normal Fundi, Normal Inspection, PERRL Nose: Normal Inspection, Normal Mucosa Throat/Mouth: Normal Inspection, Normal Lips, Normal Teeth, Normal Gums, Normal Oropharynx, Normal Voice, No Airway Compromise Head: Atraumatic, Normocephalic Neck: Supple, Non-Tender, Other (trache noted. No discharge or bleeding.) Respiratory/Chest: No Respiratory Distress, Lungs Clear, Normal Breath Sounds, No Accessory Muscle Use, Chest Non-Tender Cardiovascular: Normal Peripheral Pulses, Regular Rate, Rhythm, No Edema, No Gallop, No JVD, No Murmur, No Rub Peripheral Pulses: 4+: Radial (R) GI/Abdominal: Soft, Non-Tender (Female) Exam: Deferred Rectal (Female) Exam: Deferred Back Exam: Normal Inspection, Full Range of Motion Extremities: Normal Inspection, Normal Range of Motion, Non-Tender, Normal Capillary Refill Neurological: Alert, Oriented, CN II-XII Intact, Slow to Respond, Other (slow, shuffling gait. Absent reflexes.) Skin Exam: Pallor EKG INTERPRETATION Rhythm: NSR [place]: Normal P-Wave: Present QRS: Normal ST-T: Normal QT: Normal Course - Vital Signs Last Recorded V/S: Last Vital Signs Temp 37.1 C 02/11/19 20:25 Pulse 81 02/11/19 20:25 Resp 16 02/11/19 20:25 BP 132/61 02/11/19 20:25 Pulse Ox 96 02/11/19 20:25 - Orders/Labs/Meds Orders: Active Orders 24 hr Category Date Time Status EKG Documentation Completion [RC] STAT Care 02/11/19 21:31 Active Chest 2V [CR] Stat Exams 02/11/19 21:34 Taken CULTURE BLOOD [BC] Stat Lab 02/11/19 20:45 Received CULTURE BLOOD [BC] Stat Lab 02/11/19 20:50 Received Potassium Chloride [KCl 10 MEQ in Water 50 ML] 10 meq Med 02/11/19 22:08 Ordered Premix Bag 1 bag IV ONETIME Sodium Chloride 0.9% [Normal Saline] 1,000 ml Med 02/11/19 21:45 Active IV ASDIRECTED Blood Culture x2 Reflex Set [OM.PC] Stat Oth 02/11/19 20:33 Ordered Medication Orders Sodium Chloride (Normal Saline) 1,000 mls @ 500 mls/hr IV ASDIRECTED CHALINO Potassium Chloride 10 meq/ (Premix) 50 mls @ 50 mls/hr IV ONETIME ONE Stop: 02/11/19 23:07 Labs: Laboratory Tests 02/11/19 02/11/19 02/11/19 Range/Units 20:45 20:45 20:45 WBC 23.5 H* (4.0-10.0) x10^3/uL RBC 2.98 L (4.00-5.50) x10^6/uL Hgb 8.2 L (12.0-16.0) g/dL Hct 26.3 L (33.0-47.0) % MCV 88.3 (78.0-93.0) fL MCH 27.5 (26.0-32.0) pg MCHC 31.2 L (32.0-36.0) g/dL RDW Coeff of Marcos 25.5 H (10.0-15.0) % Plt Count 416 H (130-400) x10^3/uL Add Manual Diff Yes Neutrophils % (Manual) 90 H (50-80) % Band Neutrophils % 1 (0-6) % Lymphocytes % (Manual) 1 L (25-50) % Monocytes % (Manual) 7 (2-11) % Metamyelocytes % 1 H (0) % Platelet Estimate Adequate Hypochromasia 2+ moderate H Poikilocytosis 2+ moderate H Anisocytosis 3+ marked H Spherocytes 2+ moderate H Acanthocytes (Spur) 1+ slight H Schistocytes 1+ slight H PT 11.8 (10.0-12.8) SEC INR 1.0 L (2.0-3.5) Sodium 139 (136-145) mmol/L Potassium 3.1 L (3.5-5.1) mmol/L Chloride 100 (98-107) mmol/L Carbon Dioxide 31 (21-32) mmol/L Anion Gap 11.1 (10-20) mmol/L BUN 20 H (7-18) mg/dL Creatinine 1.5 H (0.55-1.02) mg/dL Est Cr Clr Drug Dosing TNP Estimated GFR (MDRD) 34 Glucose 132 H (74-106) mg/dL Lactic Acid (0.4-2.0) mmol/L Calcium 13.1 H* D (8.5-10.1) mg/dL Corrected Calcium 13.82 H* D (8.5-10.1) mg/dL Phosphorus 4.5 (2.6-4.7) mg/dL Magnesium 1.7 L (1.8-2.4) mg/dL Total Bilirubin 0.4 (0.2-1.0) mg/dL AST 20 (15-37) U/L ALT 22 (14-59) U/L Alkaline Phosphatase 83 (46-116) U/L C-Reactive Protein < 0.2 (<=0.9) mg/dL Total Protein 7.0 (6.4-8.2) g/dL Albumin 3.1 L (3.4-5.0) g/dL Globulin 3.9 Albumin/Globulin Ratio 0.79 Urine Color (YELLOW) Urine Appearance (CLEAR) Urine pH (5.0-8.0) Ur Specific [place] Urine Protein (NEGATIVE) mg/dL Urine Glucose (UA) (NEGATIVE) mg/dL Urine Ketones (NEGATIVE) mg/dL Urine Occult Blood (NEGATIVE) Urine Nitrite (NEGATIVE) Urine Bilirubin (NEGATIVE) Urine Urobilinogen (0.2) EU/dL Ur Leukocyte Esterase (NEGATIVE) Urine RBC (NOT SEEN) /HPF Urine WBC (NOT SEEN) /HPF Ur Squamous Epith Cells (NEGATIVE) /HPF Urine Bacteria (NEGATIVE) /HPF Urine Mucus (NEGATIVE) /LPF 02/11/19 02/11/19 Range/Units 20:45 21:25 WBC (4.0-10.0) x10^3/uL RBC (4.00-5.50) x10^6/uL Hgb (12.0-16.0) g/dL Hct (33.0-47.0) % MCV (78.0-93.0) fL MCH (26.0-32.0) pg MCHC (32.0-36.0) g/dL RDW Coeff of Marcos (10.0-15.0) % Plt Count (130-400) x10^3/uL Add Manual Diff Neutrophils % (Manual) (50-80) % Band Neutrophils % (0-6) % Lymphocytes % (Manual) (25-50) % Monocytes % (Manual) (2-11) % Metamyelocytes % (0) % Platelet Estimate Hypochromasia Poikilocytosis Anisocytosis Spherocytes Acanthocytes (Spur) Schistocytes PT (10.0-12.8) SEC INR (2.0-3.5) Sodium (136-145) mmol/L Potassium (3.5-5.1) mmol/L Chloride (98-107) mmol/L Carbon Dioxide (21-32) mmol/L Anion Gap (10-20) mmol/L BUN (7-18) mg/dL Creatinine (0.55-1.02) mg/dL Est Cr Clr Drug Dosing Estimated GFR (MDRD) Glucose (74-106) mg/dL Lactic Acid 1.8 (0.4-2.0) mmol/L Calcium (8.5-10.1) mg/dL Corrected Calcium (8.5-10.1) mg/dL Phosphorus (2.6-4.7) mg/dL Magnesium (1.8-2.4) mg/dL Total Bilirubin (0.2-1.0) mg/dL AST (15-37) U/L ALT (14-59) U/L Alkaline Phosphatase (46-116) U/L C-Reactive Protein (<=0.9) mg/dL Total Protein (6.4-8.2) g/dL Albumin (3.4-5.0) g/dL Globulin Albumin/Globulin Ratio Urine Color Yellow (YELLOW) Urine Appearance Clear (CLEAR) Urine pH 6.5 (5.0-8.0) Ur Specific [place] 1.015 Urine Protein Trace H (NEGATIVE) mg/dL Urine Glucose (UA) Negative (NEGATIVE) mg/dL Urine Ketones Negative (NEGATIVE) mg/dL Urine Occult Blood Negative (NEGATIVE) Urine Nitrite Negative (NEGATIVE) Urine Bilirubin Negative (NEGATIVE) Urine Urobilinogen 0.2 (0.2) EU/dL Ur Leukocyte Esterase Trace H (NEGATIVE) Urine RBC Not seen (NOT SEEN) /HPF Urine WBC 0-5 (NOT SEEN) /HPF Ur Squamous Epith Cells Moderate H (NEGATIVE) /HPF Urine Bacteria Rare (NEGATIVE) /HPF Urine Mucus Not seen (NEGATIVE) /LPF Meds: Medications Generic Name Dose Route Start Last Admin Trade Name Freq PRN Reason Stop Dose Admin Sodium Chloride 1,000 mls @ 500 mls/hr 02/11/19 21:45 Normal Saline IV ASDIRECTED CHALINO Potassium Chloride 10 meq/ 50 mls @ 50 mls/hr 02/11/19 22:08 Premix IV 02/11/19 23:07 ONETIME ONE Discontinued Medications Generic Name Dose Route Start Last Admin Trade Name Freq PRN Reason Stop Dose Admin Acetaminophen 1,000 mg 02/11/19 21:00 02/11/19 21:08 Tylenol Extra Strength PO 02/11/19 21:01 1,000 mg ONETIME ONE Administration - Radiology Interpretation Free Text/Narrative:: CXR reveals no acute pathology. COPD noted. Departure - Departure Time of Disposition: 22:11 Disposition: DC/Tfer to [facility] 02 Clinical Impression: Hypercalcemia, Laryngeal cancer - Discharge Information Referrals: Alley John, [Primary Care Provider] - - My Orders Last 24 Hours: My Active Orders 02/11/19 20:33 Blood Culture x2 Reflex Set [OM.PC] Stat 02/11/19 20:45 CULTURE BLOOD [BC] Stat 02/11/19 20:50 CULTURE BLOOD [BC] Stat 02/11/19 21:31 EKG Documentation Completion [RC] STAT 02/11/19 21:34 Chest 2V [CR] Stat 02/11/19 21:45 Sodium Chloride 0.9% [Normal Saline] 1,000 ml IV ASDIRECTED 02/11/19 22:08 Potassium Chloride [KCl 10 MEQ in Water 50 ML] 10 meq Premix Bag 1 bag IV ONETIME - Assessment/Plan Last 24 Hours: My Active Orders 02/11/19 20:33 Blood Culture x2 Reflex Set [OM.PC] Stat 02/11/19 20:45 CULTURE BLOOD [BC] Stat 02/11/19 20:50 CULTURE BLOOD [BC] Stat 02/11/19 21:31 EKG Documentation Completion [RC] STAT 02/11/19 21:34 Chest 2V [CR] Stat 02/11/19 21:45 Sodium Chloride 0.9% [Normal Saline] 1,000 ml IV ASDIRECTED 02/11/19 22:08 Potassium Chloride [KCl 10 MEQ in Water 50 ML] 10 meq Premix Bag 1 bag IV ONETIME Plan: Pt. will be [facility]. She was started on IV NS and was given a 500ml bolus. She was also given potassium chloride 10mg IV. Consulted with Dr. Wilhelm and then Dr. Carlos who accepts that patient in transfer. Pt. will be transported via [facility] ground ambulance. All questions were answered.
[2019-02-11] MEDS ORDERED: Sodium Chloride 0.9% 1,000 ML IV SCH (21:45)
[2019-02-11] MEDS ORDERED: Potassium Chloride 10 MEQ in Premix Bag 1 BAG IV ONE (22:08)
[2019-02-11 22:09] VITALS: BP 132/61; PULSE 81
--- NOTE | 2019-02-12 08:48 | CR ---
[id number] RAD/RAD Chest PA And Lateral EXAM: FRONTAL AND LATERAL CHEST INDICATION: Weakness. COMPARISON: October 24, 2018. DISCUSSION: Hyperinflation is compatible with chronic obstructive pulmonary disease. Chronic right middle lobe collapse. There is mild cardiomegaly with borderline central vascular congestion. Multiple surgical clips and a tracheostomy appliance overlies the upper chest. IMPRESSION: 1. Stable cardiomegaly with borderline central vascular congestion. 2. Chronic obstructive pulmonary disease. 3. Chronic right middle lobe collapse. If not previously performed, bronchoscopy is suggested for further evaluation. Gerry Pemberton MD 02/12/19 0847 Thank you for allowing us to participate in the care of your patient.
== END 2019-02-11 23:30 | disposition short-term general hospital (02) ==
LOC: VM.ED 20:24
DX: E83.52 Hypercalcemia (principal); C32.9 Malignant neoplasm of larynx, unspecified; F41.9 Anxiety disorder, unspecified; F32.9 Major depressive disorder, single episode, unspecified; I50.9 Heart failure, unspecified; Z79.899 Other long term (current) drug therapy; Z88.6 Allergy status to analgesic agent; Z91.040 Latex allergy status; Z88.1 Allergy status to other antibiotic agents; Z88.0 Allergy status to penicillin; Z88.8 Allergy status to other drugs, medicaments and biological substances; Z88.2 Allergy status to sulfonamides; Z91.09 Other allergy status, other than to drugs and biological substances; Z09 Encounter for follow-up examination after completed treatment for conditions other than malignant neoplasm; Z86.14 Personal history of Methicillin resistant Staphylococcus aureus infection
CPT/HCPCS: 36415; 71046; 80053; 81001; 83605; 83735; 84100; 85025; 85610; 86140; 87040; 93005; 93010; 96365; 96374; 96375; 99284; 99285; A9270; J0878; J1335; J3480; J7030

== ENCOUNTER 2019-02-21 09:38 | Emergency (ER) | payer MEDICARE, BC ==
--- NOTE | 2019-02-21 09:57 | EDM.PDOC ---
ED HPI GENERAL MEDICAL PROBLEM - General Stated Complaint: ER VISIT Time Seen by Provider: 02/21/19 09:50 Source of Information: Reports: Patient, Family History Limitations: Reports: No Limitations - History of Present Illness INITIAL COMMENTS - FREE TEXT/NARRATIVE: Patient was at home today having trouble clearing the secretions from her trach , little short of breath decided to come to the ER for suction. Patient also states she is having right-sided lateral rib pain this morning sharp stabbing 6 out of 10 nonradiating. She was just released from [place] Patient denies any other complaints at this time she denies home O2 use. 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 States she has this often with clearing secretions Duration: Hour(s): Severity: Moderate Improves with: Reports: Other (Suction) Left Thoracic Pain Score (Numeric/FACES): 6 - Related Data Allergies Allergy/AdvReac Type Severity Reaction Status Date / Time adhesive Allergy Rash Verified 02/21/19 10:50 amoxicillin Allergy Rash Verified 02/21/19 10:50 ceftriaxone Allergy Rash Verified 02/21/19 10:50 cephalexin Allergy Rash Verified 02/21/19 10:50 erythromycin base Allergy Rash Verified 02/21/19 10:50 hydroxyurea [From Hydrea] Allergy Other Verified 02/21/19 10:50 iodine Allergy Hives Verified 02/21/19 10:50 latex Allergy Rash Verified 02/21/19 10:50 Penicillins Allergy Rash Verified 02/21/19 10:50 Sulfa (Sulfonamide Allergy Rash Verified 02/21/19 10:50 Antibiotics) aspirin AdvReac Bleeding Verified 02/21/19 10:50 doxycycline AdvReac Rectal Verified 02/21/19 10:50 Bleeding Fish Containing Products AdvReac Nausea Verified 02/21/19 10:50 hydrocodone [From [place]] AdvReac Nausea Verified 02/21/19 10:50 NSAIDS (Non-Steroidal AdvReac Bleeding Verified 02/21/19 10:50 Anti-Inflamma perfume AdvReac Headache Verified 02/21/19 10:50 Home Meds: Home Meds Citalopram Hydrobromide [Celexa] 20 mg PO BEDTIME 01/02/15 [History] Omeprazole [Prilosec] 20 mg PO DAILY 01/02/15 [History] Arformoterol [Brovana] 15 mcg NEB BID 08/17/18 [History] Budesonide [Pulmicort] 0.5 mg NEB BID 08/17/18 [History] Levothyroxine [Synthroid] 200 mcg PO DAILY 08/17/18 [History] Polyethylene Glycol 3350 [MiraLAX] 17 gm PO DAILY PRN 02/02/19 [History] Furosemide [Lasix] 20 mg PO ONETIME #1 tablet 02/21/19 [Rx] Linezolid 600 mg PO BID 02/21/19 [History] Potassium Chloride 20 meq PO DAILY 02/21/19 [History] diphenhydrAMINE [Benadryl] 25 - 50 mg PO DAILY PRN 02/21/19 [History] Past Medical History HEENT History: Reports: Other (See Below) Other HEENT History: laryngeal cancer, vocal cord cyst Cardiovascular History: Reports: Cardiomyopathy, Heart Failure, Other (See Below ) Other Cardiovascular History: aortic disorder Respiratory History: Reports: Bronchitis, Recurrent, COPD, Pneumonia, Recurrent , SOB, Other (See Below) Other Respiratory History: Pulmonary emphysema, centrilobular emphysema, acute respiratory failure with hypoxia Gastrointestinal History: Reports: GI Bleed, Hiatal Hernia, Other (See Below) Other Gastrointestinal History: 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, gastroentestinal hemorrhage Genitourinary History: Reports: Other (See Below) Other Genitourinary History: atrophic vaginitis CREDIT COLLECTION SPECIALIST History: Reports: Other (See Below) Other CREDIT COLLECTION SPECIALIST History: Atrophic vaginitis Musculoskeletal History: Reports: Other (See Below) Other Musculoskeletal History: broke right foot 8 years ago Neurological History: Reports: Neuropathy, Peripheral, Other (See Below) Other Neuro History: myelodysplastic syndrome Psychiatric History: Reports: Anxiety, Depression Endocrine/Metabolic History: Reports: Hypothyroidism, Osteopenia Hematologic History: Reports: Anemia, Iron Deficiency, Other (See Below) Other Hematologic History: Myelodysplastic Syndrome, thrombocytosis, bone marrow biopsy Oncologic (Cancer) History: Reports: Other (See Below) 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 Dermatologic History: Reports: Other (See Below) Other Dermatologic History: cutaneous abscess of chest wall - Infectious Disease History Infectious Disease History: Reports: C-Difficile, Other (See Below) Other Infectious Disease History: H. Pylori infection - Past Surgical History Other GI Surgeries/Procedures: endoscopy Social & Family History - Family History Family Medical History: Noncontributory - Caffeine Use Caffeine Use: Reports: Coffee ED ROS GENERAL - Review of Systems Review Of Systems: See Below Constitutional: Reports: No Symptoms. Denies: Fever, Chills, Malaise, Weakness HEENT: Reports: No Symptoms. Denies: Rhinitis, Throat Pain, Throat Swelling Respiratory: Reports: Shortness of Breath, Pleuritic Chest Pain. Denies: Cough , Sputum, Hemoptysis Cardiovascular: Reports: No Symptoms Endocrine: Reports: No Symptoms GI/Abdominal: Reports: No Symptoms : Reports: No Symptoms Musculoskeletal: Reports: No Symptoms Skin: Reports: No Symptoms Neurological: Reports: No Symptoms Hematologic/Lymphatic: Reports: No Symptoms Immunologic: Reports: No Symptoms ED EXAM, GENERAL - Physical Exam Exam: See Below Exam Limited By: No Limitations General Appearance: Alert, WD/WN, No Apparent Distress Nose: Normal Inspection, Normal Mucosa Throat/Mouth: Normal Inspection, Normal Lips, No Airway Compromise. No: Normal Voice, Other (Patient noted with thickened secretions from trachea but has normal air movement sats 96% after suctioning) Head: Atraumatic, Normocephalic Neck: Normal Inspection, Supple, Non-Tender, Full Range of Motion Respiratory/Chest: No Respiratory Distress, No Accessory Muscle Use, Rhonchi ( Scattered rhonchi in all crand[place] no wheezing noted). No: Lungs Clear, Normal Breath Sounds Cardiovascular: Normal Peripheral Pulses, Regular Rate, Rhythm, No Edema GI/Abdominal: Normal Bowel Sounds, Soft, Non-Tender, No Organomegaly, No Distention Back Exam: Normal Inspection, Full Range of Motion Extremities: Normal Inspection, Normal Range of Motion Neurological: Alert, Oriented, CN II-XII Intact, Normal Cognition, Normal Gait Skin Exam: Warm, Dry, Intact, Normal Color, No Rash (No noted rashes on the right ribs) Course - Vital Signs Text/Narrative:: Patient was suctioned trach was irrigated with normal saline patient was placed on trach mask oxygen. doing well post suctioning Spoke with Dr. Castro oncology at [place] states that the chest x-ray from time of discharge sounds about the same as chest x-ray from today more pulmonary edema?then infiltrate states patient is on Zyvox if it is an infiltrate should cover it but due to normal white blood cell count suspect more pulmonary edema he is okay was given a trial of Lasix 20 mg by mouth every morning 2 days and have the patient rechecked. She had a normal cardiac echo in September with a normal EF Patient family state that they have had this issue before and okay with taking Lasix patient has a follow-up in the morning with primary care provider already scheduled they're okay with being discharged. Five-minute oxygen trial patient's oxygen level was at 95% patient no acute distress states she feels much better Last Recorded V/S: Last Vital Signs Temp 36.3 C 02/21/19 09:45 Pulse 90 02/21/19 09:45 Resp 26 H 02/21/19 09:45 BP 132/89 02/21/19 09:45 Pulse Ox 86 L 02/21/19 09:45 - Orders/Labs/Meds Orders: Active Orders 24 hr Category Date Time Status EKG 12 Lead [EKG Documentation Completion] [RC] STAT Care 02/21/19 09:51 Active Labs: Laboratory Tests 02/21/19 02/21/19 Range/Units 10:10 10:10 WBC 16.1 H (4.0-10.0) x10^3/uL RBC 2.62 L (4.00-5.50) x10^6/uL Hgb 7.1 L (12.0-16.0) g/dL Hct 22.8 L (33.0-47.0) % MCV 87.0 (78.0-93.0) fL MCH 27.1 (26.0-32.0) pg MCHC 31.1 L (32.0-36.0) g/dL RDW Coeff of Marcos 25.1 H (10.0-15.0) % Plt Count 303 D (130-400) x10^3/uL Add Manual Diff Yes Neutrophils % (Manual) 82 H (50-80) % Band Neutrophils % 10 H (0-6) % Lymphocytes % (Manual) 3 L (25-50) % Monocytes % (Manual) 3 (2-11) % Eosinophils % (Manual) 2 (0-4) % Platelet Estimate Adequate Hypochromasia 3+ marked H Poikilocytosis 2+ moderate H Anisocytosis 3+ marked H Ovalocytes 3+ marked H Sodium 142 (136-145) mmol/L Potassium 4.1 (3.5-5.1) mmol/L Chloride 106 (98-107) mmol/L Carbon Dioxide 23 (21-32) mmol/L Anion Gap 17.1 (10-20) mmol/L BUN 17 (7-18) mg/dL Creatinine 1.1 H (0.55-1.02) mg/dL Est Cr Clr Drug Dosing TNP Estimated GFR (MDRD) 48 Glucose 89 (74-106) mg/dL Calcium 6.8 L* D (8.5-10.1) mg/dL Departure - Departure Time of Disposition: 11:10 Disposition: Home, Self-Care 01 Condition: Good Clinical Impression: SOB (shortness of breath), Tracheal cancer - Discharge Information *PRESCRIPTION DRUG MONITORING PROGRAM REVIEWED*: No *COPY OF PRESCRIPTION DRUG MONITORING REPORT IN PATIENT PEDRO: No - Problem List Review Problem List Initiated/Reviewed/Updated: Yes - My Orders Last 24 Hours: My Active Orders 02/21/19 09:51 EKG 12 Lead [EKG Documentation Completion] [RC] STAT - Assessment/Plan Last 24 Hours: My Active Orders 02/21/19 09:51 EKG 12 Lead [EKG Documentation Completion] [RC] STAT
[2019-02-21 10:35] LABS: CHLORIDE,CL 106 mmol/L (98-107); SODIUM,NA 142 mmol/L (136-145)
[2019-02-21 10:46] LABS: ANION GAP 17.1 mmol/L (10-20)
--- NOTE | 2019-02-21 10:52 | CR ---
[id number] RAD/RAD Chest PA And Lateral EXAM: RAD Chest PA And Lateral INDICATION: SHORTNESS OF BREATH. COMPARISON: February 11, 2019. DISCUSSION: Cardiomediastinal silhouette is stable in size and contour. Pulmonary hyperinflation. Increasing opacification overlying the right midlung zone. No pneumothorax. Trace right pleural effusion. Surgical clips overlying both axilla and the neck. IMPRESSION: Increasing/in opacification overlying the right midlung zone could represent pulmonary infiltrate versus asymmetric pulmonary edema. Follow-up imaging after appropriate therapy in 4-6 weeks is recommended to ensure resolution. Taz Orellana DO 02/21/19 1052 Thank you for allowing us to participate in the care of your patient.
[2019-02-21] MEDS ORDERED: Furosemide 20 MG Tab PO ONE (11:07)
[2019-02-21] MEDS ORDERED: Furosemide 20 MG Tab ONE (11:19)
[2019-02-21 11:41] VITALS: BP 116/53; PULSE 76
== END 2019-02-21 11:30 | disposition home or self-care (01) ==
LOC: VM.ED 09:38
DX: C14.0 Malignant neoplasm of pharynx, unspecified (principal); C78.39 Secondary malignant neoplasm of other respiratory organs; F41.9 Anxiety disorder, unspecified; F32.9 Major depressive disorder, single episode, unspecified; E03.9 Hypothyroidism, unspecified; I50.9 Heart failure, unspecified; J43.9 Emphysema, unspecified; Z88.1 Allergy status to other antibiotic agents; Z88.8 Allergy status to other drugs, medicaments and biological substances; Z91.048 Other nonmedicinal substance allergy status; Z91.040 Latex allergy status; Z88.0 Allergy status to penicillin; Z88.2 Allergy status to sulfonamides; Z91.013 Allergy to seafood; Z79.899 Other long term (current) drug therapy
CPT/HCPCS: 36415; 71046; 80048; 85025; 93005; 99285; A9270; 99284-GF

== ENCOUNTER 2019-04-17 15:38 | Emergency (ER) | payer MEDICARE, BC | END 2019-04-17 15:47 | disposition left against medical advice (07) | LOC: VM.ED 15:38 | DX: Z53.21 Procedure and treatment not carried out due to patient leaving prior to being seen by health care provider (principal) | CPT/HCPCS: 99281 ==

== ENCOUNTER 2019-09-09 03:00 | Emergency (ER) | payer MEDICARE, BC ==
--- NOTE | 2019-09-09 03:13 | EDM.PDOC ---
ED HPI GENERAL MEDICAL PROBLEM - General Stated Complaint: Airway difficulty, trach Time Seen by Provider: 09/09/19 03:12 Source of Information: Reports: Patient, Family History Limitations: Reports: Physical Impairment - History of Present Illness INITIAL COMMENTS - FREE TEXT/NARRATIVE: Patient does have a trach. is very attentive. Patient's respirations are high. O2 saturation is good. Patient does seem to be anxious. On auscultation of the chest there is some wheezing but no crackles or gurgling or anything suggestive of needing to be suctioned and I think that that will continue to aggravate her. Therefore Ativan IM and DuoNeb transpired. I don't believe a x-ray will yield any further information. Afebrile. And also because of the time of the morning also suggestive of anxiety or possibly a panic attack. Patient has been going through a lot in regards to her treatments. 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 below) (Albuterol) - Related Data Allergies Allergy/AdvReac Type Severity Reaction Status Date / Time adhesive Allergy Rash Verified 09/09/19 03:26 amoxicillin Allergy Rash Verified 09/09/19 03:26 ceftriaxone Allergy Rash Verified 09/09/19 03:26 cephalexin Allergy Rash Verified 09/09/19 03:26 erythromycin base Allergy Rash Verified 09/09/19 03:26 hydroxyurea [From Hydrea] Allergy Other Verified 09/09/19 03:26 iodine Allergy Hives Verified 09/09/19 03:26 latex Allergy Rash Verified 09/09/19 03:26 Penicillins Allergy Rash Verified 09/09/19 03:26 Sulfa (Sulfonamide Allergy Rash Verified 09/09/19 03:26 Antibiotics) aspirin AdvReac Bleeding Verified 09/09/19 03:26 doxycycline AdvReac Rectal Verified 09/09/19 03:26 Bleeding Fish Containing Products AdvReac Nausea Verified 09/09/19 03:26 hydrocodone [From [place]] AdvReac Nausea Verified 09/09/19 03:26 NSAIDS (Non-Steroidal AdvReac Bleeding Verified 09/09/19 03:26 Anti-Inflamma perfume AdvReac Headache Verified 09/09/19 03:26 Home Meds: Home Meds Citalopram Hydrobromide [Celexa] 20 mg PO BEDTIME 01/02/15 [History] Omeprazole [Prilosec] 20 mg PO DAILY 01/02/15 [History] Arformoterol [Brovana] 15 mcg NEB BID 08/17/18 [History] Budesonide [Pulmicort] 0.5 mg NEB BID 08/17/18 [History] Levothyroxine [Synthroid] 200 mcg PO DAILY 08/17/18 [History] polyethylene glycoL 3350 [MiraLAX] 17 gm PO DAILY PRN 02/02/19 [History] Furosemide [Lasix] 20 mg PO ONETIME #1 tablet 02/21/19 [Rx] Linezolid 600 mg PO BID 02/21/19 [History] Potassium Chloride 20 meq PO DAILY 02/21/19 [History] diphenhydrAMINE [Benadryl] 25 - 50 mg PO DAILY PRN 02/21/19 [History] Past Medical History HEENT History: Reports: Other (See Below) Other HEENT History: laryngeal cancer, vocal cord cyst Cardiovascular History: Reports: Cardiomyopathy, Heart Failure, Other (See Below ) Other Cardiovascular History: aortic disorder Respiratory History: Reports: Bronchitis, Recurrent, COPD, Pneumonia, Recurrent , SOB, Other (See Below) Other Respiratory History: Pulmonary emphysema, centrilobular emphysema, acute respiratory failure with hypoxia Gastrointestinal History: Reports: GI Bleed, Hiatal Hernia, Other (See Below) Other Gastrointestinal History: 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, gastroentestinal hemorrhage Genitourinary History: Reports: Other (See Below) Other Genitourinary History: atrophic vaginitis 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 (See Below) Other STREET LIGHT INSPECTOR History: Atrophic vaginitis Musculoskeletal History: Reports: Other (See Below) Other Musculoskeletal History: broke right foot 8 years ago Neurological History: Reports: Neuropathy, Peripheral, Other (See Below) Other Neuro History: myelodysplastic syndrome Psychiatric History: Reports: Anxiety, Depression Endocrine/Metabolic History: Reports: Hypothyroidism, Osteopenia Hematologic History: Reports: Anemia, Iron Deficiency, Other (See Below) Other Hematologic History: Myelodysplastic Syndrome, thrombocytosis, bone marrow biopsy Oncologic (Cancer) History: Reports: Other (See Below) 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 Dermatologic History: Reports: Other (See Below) Other Dermatologic History: cutaneous abscess of chest wall - Infectious Disease History Infectious Disease History: Reports: C-Difficile, Other (See Below) Other Infectious Disease History: H. Pylori infection - Past Surgical History Other GI Surgeries/Procedures: endoscopy Social & Family History - Family History Family Medical History: Noncontributory - Caffeine Use Caffeine Use: Reports: Coffee ED ROS GENERAL - Review of Systems Review Of Systems: Comprehensive ROS is negative, except as noted in HPI. ED EXAM, GENERAL - Physical Exam Exam: See Below Exam Limited By: Physical Impairment (Trach.) General Appearance: Alert, Moderate Distress Throat/Mouth: Normal Inspection, Normal Lips Head: Atraumatic, Normocephalic Respiratory/Chest: Wheezing, Accessory Muscle Use, Retractions, Other (Trach.). No: Crackles Cardiovascular: Normal Peripheral Pulses, Regular Rate, Rhythm Psychiatric: Anxious Skin Exam: Warm, Dry Lymphatic: No Adenopathy Course - Vital Signs Last Recorded V/S: Last Vital Signs Temp 35.9 C L 09/09/19 03:00 Pulse 100 09/09/19 03:00 Resp 24 H 09/09/19 03:00 BP 101/57 L 09/09/19 03:00 Pulse Ox 93 L 09/09/19 03:00 - Orders/Labs/Meds Orders: Active Orders 24 hr Category Date Time Status RT Aerosol Therapy [RC] ASDIRECTED Care 09/09/19 03:18 Active Meds: Medications Discontinued Medications Generic Name Dose Route Start Last Admin Trade Name Freq PRN Reason Stop Dose Admin Albuterol/Ipratropium 3 ml 09/09/19 03:18 Duoneb 3.0-0.5 Mg/3 Ml NEB 09/09/19 03:19 ONETIME ONE Lorazepam 2 mg 09/09/19 03:16 Ativan IM 09/09/19 03:17 ONETIME ONE Departure - Departure Time of Disposition: 03:37 Disposition: Home, Self-Care 01 Condition: Good Clinical Impression: Anxiety Exacerbation of asthma Qualifiers: Asthma severity: moderate Asthma persistence: unspecified Qualified Code(s): J45.901 - Unspecified asthma with (acute) exacerbation - Discharge Information *PRESCRIPTION DRUG MONITORING PROGRAM REVIEWED*: Not Applicable *COPY OF PRESCRIPTION DRUG MONITORING REPORT IN PATIENT PEDRO: Not Applicable Instructions: Shortness of Breath, Adult, [id number] Forms: ED Department Discharge Additional Instructions: See your primary if symptoms persist. Ativan and DuoNeb given. Sepsis Event Note - Focused Exam Vital Signs: Vital Signs Temp Pulse Resp BP Pulse Ox 09/09/19 03:00 35.9 C L 100 24 H 101/57 L 93 L Date Exam was Performed: 09/09/19 Time Exam was Performed: 03:32 - My Orders Last 24 Hours: My Active Orders 09/09/19 03:18 RT Aerosol Therapy [RC] ASDIRECTED - Assessment/Plan Last 24 Hours: My Active Orders 09/09/19 03:18 RT Aerosol Therapy [RC] ASDIRECTED
[2019-09-09] MEDS ORDERED: LORazepam 2 MG/ML SDV IM ONE (03:16)
[2019-09-09] MEDS ORDERED: Albuterol/Ipratropium 3.0-0.5 MG/3 ML Neb Soln NEB ONE (03:18)
[2019-09-09 03:26] VITALS: BP 101/57
[2019-09-09 04:54] VITALS: PULSE 86
--- NOTE | 2019-09-09 07:39 | CR ---
[id number] RAD/RAD Chest PA or AP 1V EXAM: SINGLE VIEW CHEST. INDICATION: SHORTNESS OF BREATH COMPARISON: CORRELATION IS MADE WITH THE EXAM OF FEBRUARY 21, 2019 FINDINGS: The lungs are hyperaerated The CT chest August 09, 2019 demonstrated significant bullous lung disease and evidence of interstitial lung disease There is scarring at the lung bases There is no pneumonia or edema. Surgical clips are seen in the axillary region and thoracic inlet bilaterally The cardiac silhouette is stable There is the suggestion of hepatomegaly IMPRESSION: AIRWAY DISEASE Alex Rangel MD 09/09/19 0738 Thank you for allowing us to participate in the care of your patient.
== END 2019-09-09 04:45 | disposition home or self-care (01) ==
LOC: VM.ED 03:00
DX: J45.901 Unspecified asthma with (acute) exacerbation (principal); F41.9 Anxiety disorder, unspecified; I50.9 Heart failure, unspecified; E03.9 Hypothyroidism, unspecified; F32.9 Major depressive disorder, single episode, unspecified; Z88.8 Allergy status to other drugs, medicaments and biological substances; Z88.0 Allergy status to penicillin; Z88.1 Allergy status to other antibiotic agents; Z91.048 Other nonmedicinal substance allergy status; Z91.040 Latex allergy status; Z88.2 Allergy status to sulfonamides; Z91.013 Allergy to seafood; Z79.899 Other long term (current) drug therapy
CPT/HCPCS: 71045; 94640; 96372; 99284; 99285; J2060; J7620-GY

== ENCOUNTER 2019-10-16 16:10 | Emergency (ER) | payer MEDICARE, BC, OTHER ==
--- NOTE | 2019-10-16 16:36 | EDM.PDOC ---
ED HPI GENERAL MEDICAL PROBLEM - General Chief Complaint: Respiratory Problem Stated Complaint: cough, SOB, chills, myalgia Time Seen by Provider: 10/16/19 16:15 Source of Information: Reports: Patient History Limitations: Reports: No Limitations - History of Present Illness INITIAL COMMENTS - FREE TEXT/NARRATIVE: Patient comes into the emergency department with concerns of cough, shortness of breath, and fever/chills for approximately 3 days. 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 Patient did have a CT done on Friday just prior to her symptoms beginning. At that time frame her CT scan has not been discussed with her but the impressions are in the computer. Impressions read chronic mucous field bronchioles in the lung bases with interval increase in surrounding groundglass opacities (may or present chronic infectious or inflammatory process). Unchanged atelectasis and stable appearance of tracheostomy. Patient states after her CT scan she began to develop malaise and low-grade fever of 99 highest of 100.2 . Patient ended up going to the clinic to have her Procrit but stayed in the vehicle and staff came to car and checked her due to not feeling well. At that time they stated to continue to watch and come to the ER if symptoms progress. The patient states she has increase or shortness of breath while at rest, she's had chills, muscle aches, runny nose, increase in her chronic cough, shortness of breath at rest, I headache, and abdominal discomfort. Patient denies any diarrhea, nausea, or vomiting. She also denies any fever greater then 100.4. Patient does not believe she's had any close interactions with any patients who have collated 19 diagnosis. However she has been in clinic and hospital institutions over the course of the last week regarding chemotherapy and CT scan completed and the clinic/Hospital setting. Quality: Reports: Other Improves with: Reports: None Worsens with: Reports: None Associated Symptoms: Reports: Cough, cough w sputum, Fever/Chills, Loss of Appetite, Malaise, Shortness of Breath - Related Data Allergies Allergy/AdvReac Type Severity Reaction Status Date / Time adhesive Allergy Rash Verified 10/16/19 16:22 amoxicillin Allergy Rash Verified 10/16/19 16:22 ceftriaxone Allergy Rash Verified 10/16/19 16:22 cephalexin Allergy Rash Verified 10/16/19 16:22 erythromycin base Allergy Rash Verified 10/16/19 16:22 hydroxyurea [From Hydrea] Allergy Other Verified 10/16/19 16:22 iodine Allergy Hives Verified 10/16/19 16:22 latex Allergy Rash Verified 10/16/19 16:22 Penicillins Allergy Rash Verified 10/16/19 16:22 Sulfa (Sulfonamide Allergy Rash Verified 10/16/19 16:22 Antibiotics) aspirin AdvReac Bleeding Verified 10/16/19 16:22 doxycycline AdvReac Rectal Verified 10/16/19 16:22 Bleeding Fish Containing Products AdvReac Nausea Verified 10/16/19 16:22 hydrocodone [From [place]] AdvReac Nausea Verified 10/16/19 16:22 NSAIDS (Non-Steroidal AdvReac Bleeding Verified 10/16/19 16:22 Anti-Inflamma perfume AdvReac Headache Verified 10/16/19 16:22 Home Meds: Home Meds Citalopram Hydrobromide [Celexa] 20 mg PO BEDTIME 01/02/15 [History] Omeprazole [Prilosec] 20 mg PO DAILY 01/02/15 [History] Arformoterol [Brovana] 15 mcg NEB BID 08/17/18 [History] Budesonide [Pulmicort] 0.5 mg NEB BID 08/17/18 [History] Levothyroxine [Synthroid] 150 mcg PO DAILY 08/17/18 [History] Albuterol [Proventil Neb Soln] 2.5 mg INH QIDRT PRN 10/16/19 [History] Calcitriol [Rocaltrol] 0.5 mcg PO QID 10/16/19 [History] Calcium Carbonate [Calcium Carbonate 250 MG/ML Susp] 10 ml PO ASDIRECTED [History] LORazepam [Ativan] 0.5 mg PO ASDIRECTED PRN 10/16/19 [History] Ondansetron [Zofran ODT] 4 mg PO Q6H PRN 10/16/19 [History] Past Medical History HEENT History: Reports: Other (See Below) Other HEENT History: laryngeal cancer, vocal cord cyst Cardiovascular History: Reports: Cardiomyopathy, Heart Failure, Other (See Below ) Other Cardiovascular History: aortic disorder Respiratory History: Reports: Bronchitis, Recurrent, COPD, Pneumonia, Recurrent , SOB, Other (See Below) Other Respiratory History: Pulmonary emphysema, centrilobular emphysema, acute respiratory failure with hypoxia Gastrointestinal History: Reports: GI Bleed, Hiatal Hernia, Other (See Below) Other Gastrointestinal History: 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, gastroentestinal hemorrhage Genitourinary History: Reports: Other (See Below) Other Genitourinary History: atrophic vaginitis 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 Below) Other GINNING OPERATOR History: Atrophic vaginitis Musculoskeletal History: Reports: Other (See Below) Other Musculoskeletal History: broke right foot 8 years ago Neurological History: Reports: Neuropathy, Peripheral, Other (See Below) Other Neuro History: myelodysplastic syndrome Psychiatric History: Reports: Anxiety, Depression Endocrine/Metabolic History: Reports: Hypothyroidism, Osteopenia Hematologic History: Reports: Anemia, Iron Deficiency, Other (See Below) Other Hematologic History: Myelodysplastic Syndrome, thrombocytosis, bone marrow biopsy Oncologic (Cancer) History: Reports: Other (See Below) 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 Dermatologic History: Reports: Other (See Below) Other Dermatologic History: cutaneous abscess of chest wall - Infectious Disease History Infectious Disease History: Reports: C-Difficile, Other (See Below) Other Infectious Disease History: H. Pylori infection - Past Surgical History Other GI Surgeries/Procedures: endoscopy Social & Family History - Family History Family Medical History: Noncontributory - Caffeine Use Caffeine Use: Reports: Coffee ED ROS GENERAL - Review of Systems Review Of Systems: See Below Constitutional: Reports: Fever, Chills, Malaise, Fatigue, Decreased Appetite HEENT: Reports: Rhinitis Respiratory: Reports: Shortness of Breath, Cough Cardiovascular: Reports: No Symptoms Endocrine: Reports: No Symptoms GI/Abdominal: Reports: Abdominal Pain : Reports: No Symptoms Musculoskeletal: Reports: No Symptoms Skin: Reports: No Symptoms Neurological: Reports: No Symptoms Psychiatric: Reports: No Symptoms Hematologic/Lymphatic: Reports: No Symptoms Immunologic: Reports: No Symptoms ED EXAM, GENERAL - Physical Exam Exam: See Below Exam Limited By: No Limitations General Appearance: Alert, WD/WN, Mild Distress Eye Exam: Bilateral Eye: EOMI, PERRL Ear Exam: Bilateral Ear: TM normal Nose: Normal Mucosa, Clear Rhinorrhea Throat/Mouth: Normal Inspection, Normal Lips Head: Atraumatic, Normocephalic Neck: Other (tracheostomy-canula patent, no redness, swelling, abnormal odor ) Respiratory/Chest: Respiratory Distress, Decreased Breath Sounds, Accessory Muscle Use Cardiovascular: Tachycardia GI/Abdominal: Normal Bowel Sounds, Soft, Non-Tender, No Organomegaly, No Mass, Pelvis Stable Back Exam: Normal Inspection, Full Range of Motion Extremities: Normal Inspection, Normal Range of Motion, Non-Tender, Normal Capillary Refill Neurological: Alert, Oriented, Normal Gait Psychiatric: Normal Affect, Normal Mood Skin Exam: Warm, Dry, Intact Course - Vital Signs Last Recorded V/S: Last Vital Signs Temp 38.2 C H 10/16/19 18:10 Pulse 90 10/16/19 18:10 Resp 14 10/16/19 18:10 BP 89/41 L 10/16/19 18:10 Pulse Ox 94 L 10/16/19 18:10 - Orders/Labs/Meds Orders: Active Orders 24 hr Category Date Time Status CORONAVIRUS COVID-19 PCR PHL [MREF] Stat Lab 10/16/19 16:45 Ordered CULTURE BLOOD [BC] Stat Lab 10/16/19 16:45 Received CULTURE BLOOD [BC] Stat Lab 10/16/19 16:45 Results INFLUENZA A+B AG SCREEN [RM] Stat Lab 10/16/19 18:00 Received Levofloxacin/Dextrose 5%-Water [Levaquin in D5W 750 MG/ Med 10/16/19 17:46 Active 150 ML] 750 mg Premix Bag 1 bag IV ONETIME Sodium Chloride 0.9% [Normal Saline] 1,000 ml Med 10/16/19 18:00 Active IV ASDIRECTED Sodium Chloride 0.9% [Saline Flush] Med 10/16/19 17:47 Active 10 ml FLUSH ASDIRECTED PRN Blood Culture x2 Reflex Set [OM.PC] Stat Oth 10/16/19 17:01 Ordered Peripheral IV Insertion Adult [OM.PC] Stat Oth 10/16/19 17:47 Ordered Medication Orders Levofloxacin/Dextrose 750 mg/ (Premix) 150 mls @ 100 mls/hr IV ONETIME ONE Stop: 10/16/19 19:15 Last Admin: 10/16/19 18:05 Dose: 100 mls/hr Sodium Chloride (Normal Saline) 1,000 mls @ 150 mls/hr IV ASDIRECTED [facility] Last Admin: 10/16/19 18:05 Dose: 150 mls/hr Sodium Chloride (Saline Flush) 10 ml FLUSH ASDIRECTED PRN PRN Reason: Keep Vein Open Labs: Laboratory Tests 10/16/19 10/16/19 10/16/19 Range/Units 16:45 16:45 16:45 WBC 22.3 H* (4.0-10.0) x10^3/uL RBC 3.30 L (4.00-5.50) x10^6/uL Hgb 8.4 L (12.0-16.0) g/dL Hct 26.7 L (33.0-47.0) % MCV 80.9 D (78.0-93.0) fL MCH 25.5 L (26.0-32.0) pg MCHC 31.5 L (32.0-36.0) g/dL RDW Coeff of Marcos 29.8 H (10.0-15.0) % Plt Count 384 D (130-400) x10^3/uL Add Manual Diff Yes Neutrophils % (Manual) 77 (50-80) % Band Neutrophils % 7 H (0-6) % Lymphocytes % (Manual) 6 L (25-50) % Monocytes % (Manual) 9 (2-11) % Eosinophils % (Manual) 1 (0-4) % Hypersegmented Neuts Few H Platelet Estimate Adequate Anisocytosis 3+ marked H Spherocytes 1+ slight H Ovalocytes 2+ moderate H Sodium 132 L (136-145) mmol/L Potassium 5.0 (3.5-5.1) mmol/L Chloride 98 (98-107) mmol/L Carbon Dioxide 24 (21-32) mmol/L Anion Gap 15.0 (10-20) mmol/L BUN 21 H (7-18) mg/dL Creatinine 1.4 H (0.55-1.02) mg/dL Est Cr Clr Drug Dosing TNP Estimated GFR (MDRD) 37 Glucose 97 (74-106) mg/dL Lactic Acid 1.7 (0.4-2.0) mmol/L Calcium 9.4 D (8.5-10.1) mg/dL Corrected Calcium 9.96 D (8.5-10.1) mg/dL Total Bilirubin 0.8 (0.2-1.0) mg/dL AST 19 (15-37) U/L ALT 16 (14-59) U/L Alkaline Phosphatase 65 (46-116) U/L Creatine Kinase 96 (26-192) U/L Troponin I < 0.017 (<=0.056) ng/mL NT-Pro-B Natriuret Pep 682 H (<=450) pg/mL Total Protein 7.9 (6.4-8.2) g/dL Albumin 3.3 L (3.4-5.0) g/dL Globulin 4.6 Albumin/Globulin Ratio 0.72 Meds: Medications Generic Name Dose Route Start Last Admin Trade Name Freq PRN Reason Stop Dose Admin Levofloxacin/Dextrose 750 mg/ 150 mls @ 100 mls/hr 10/16/19 17:46 10/16/19 18 :05 Premix IV 10/16/19 19:15 100 mls/hr ONETIME ONE Administration Sodium Chloride 1,000 mls @ 150 mls/hr 10/16/19 18:00 10/16/19 18:05 Normal Saline IV 150 mls/hr ASDIRECTED [place]ALINO Administration Sodium Chloride 10 ml 10/16/19 17:47 Saline Flush FLUSH ASDIRECTED PRN Keep Vein Open Discontinued Medications Generic Name Dose Route Start Last Admin Trade Name Freq PRN Reason Stop Dose Admin Acetaminophen 650 mg 10/16/19 18:19 Tylenol PO 10/16/19 18:20 NOW ONE Departure - Departure Time of Disposition: 18:00 Disposition: Admitted As Inpatient 68 Condition: Good Clinical Impression: Respiratory distress, Cough, SOB (shortness of breath), Laryngeal cancer Pneumonia Qualifiers: Pneumonia type: due to unspecified organism Laterality: left Lung location: lower lobe of lung Qualified Code(s): J18.9 - Pneumonia, unspecified organism Fatigue Qualifiers: Fatigue type: other Qualified Code(s): R53.83 - Other fatigue - Discharge Information *PRESCRIPTION DRUG MONITORING PROGRAM REVIEWED*: Not Applicable *COPY OF PRESCRIPTION DRUG MONITORING REPORT IN PATIENT PEDRO: Not Applicable Referrals: Alley John DO [Primary Care Provider] - Forms: ED Department Discharge, Interfacility Transfer [facility] Sepsis Event Note - Evaluation Sepsis Screening Result: No Definite Risk - Focused Exam Vital Signs: Vital Signs Temp Pulse Resp BP Pulse Ox 10/16/19 18:10 38.2 C H 90 14 89/41 L 94 L 10/16/19 16:12 37.4 C 97 20 103/52 L 93 L Date Exam was Performed: 10/16/19 Time Exam was Performed: 18:21 - My Orders Last 24 Hours: My Active Orders 10/16/19 16:45 CORONAVIRUS COVID-19 PCR PHL [MREF] Stat CULTURE BLOOD [BC] Stat CULTURE BLOOD [BC] Stat 10/16/19 17:01 Blood Culture x2 Reflex Set [OM.PC] Stat 10/16/19 17:46 Levofloxacin/Dextrose 5%-Water [Levaquin in D5W 750 MG/150 ML] 750 mg Premix Bag 1 bag IV ONETIME 10/16/19 17:47 Sodium Chloride 0.9% [Saline Flush] 10 ml FLUSH ASDIRECTED PRN Peripheral IV Insertion Adult [OM.PC] Stat 10/16/19 18:00 INFLUENZA A+B AG SCREEN [RM] Stat Sodium Chloride 0.9% [Normal Saline] 1,000 ml IV ASDIRECTED - Assessment/Plan Last 24 Hours: My Active Orders 10/16/19 16:45 CORONAVIRUS COVID-19 PCR PHL [MREF] Stat CULTURE BLOOD [BC] Stat CULTURE BLOOD [BC] Stat 10/16/19 17:01 Blood Culture x2 Reflex Set [OM.PC] Stat 10/16/19 17:46 Levofloxacin/Dextrose 5%-Water [Levaquin in D5W 750 MG/150 ML] 750 mg Premix Bag 1 bag IV ONETIME 10/16/19 17:47 Sodium Chloride 0.9% [Saline Flush] 10 ml FLUSH ASDIRECTED PRN Peripheral IV Insertion Adult [OM.PC] Stat 10/16/19 18:00 INFLUENZA A+B AG SCREEN [RM] Stat Sodium Chloride 0.9% [Normal Saline] 1,000 ml IV ASDIRECTED Assessment:: 1. Pneumonia 2. cough 3. myalgia 4. shortness of breath at rest 5. Pending Covid-19 results 6. Laryngeal squamous cell carcinoma 7. Respiratory Distress Plan: 1. Labs completed in the ER. Results reviewed with the patient 2. IV initiated in the emergency department 3. IV fluids provided at a controlled rate to help maintain BP 4. Levaquin given in the ER only after consultation with [facility] due to patients allergy list, poor sensitivity to antibiotics per her report and on active chemo treatment and potential COVID-19 concerns and medication regiment needs 5. Normal Saline 150ml/hr to help with low BP. Tylenol 650mg PO given for fever elevation prior to discharge of 100.7. 6. Patient and nursing staff was updated regarding the plan of care 7. Sepsis protocol utilized with the exception and delay of antibiotic use to do needing to speak with specialist. 8. Rapid Influenza completed in ER 9. Procalcitonin not completed for the patient is being transferred and they have the ability to order it in house. Result will take up to 48 hours here. Hospitalist aware at receiving facility 10. Blood cultures completed 11. Chest Xray completed- Left lung base parenchymal opacification (atelectasis or possible pneumonia) 12. Covid-19 screening/swab completed and sent will take 24-48 hours-sent to [facility] lab. 13. Dr. Espinoza contacted at [facility] who will be accepting this patient as an acute care admit. Pt will be sent via ALS ambulance for further medical treatment at a higher level of [place]. 14. Code Level status- Full code
[2019-10-16 17:21] LABS: CHLORIDE,CL 98 mmol/L (98-107); SODIUM,NA 132 mmol/L (136-145)
--- NOTE | 2019-10-16 17:41 | CR ---
[id number] RAD/RAD Chest PA or AP 1V EXAM: RAD Chest PA or AP 1V INDICATION: SHORTNESS OF BREATH/COUGH. COMPARISON: September 09, 2019. DISCUSSION: Parenchymal opacification projecting over the left lung base. Differential diagnosis includes subsegmental atelectasis or pneumonia. Aspiration is also possible. Right lung is clear. Findings are superimposed on chronic obstructive pulmonary disease. Mild cardiomegaly and central vascular congestion, similar to the prior examination. IMPRESSION: Left lung base parenchymal opacification, described above with differential diagnosis. Satish Sanabria MD 10/16/19 0060 Thank you for allowing us to participate in the care of your patient.
[2019-10-16] MEDS ORDERED: Levofloxacin/Dextrose 5%-Water 750 MG in Premix Bag 1 BAG IV ONE (17:46)
[2019-10-16] MEDS ORDERED: Sodium Chloride 0.9% 10 ML Syringe FLUSH PRN (17:47)
[2019-10-16] MEDS ORDERED: Sodium Chloride 0.9% 1,000 ML IV SCH (18:00)
[2019-10-16 18:11] VITALS: BP 89/41; PULSE 90
[2019-10-16] MEDS ORDERED: Acetaminophen 325 MG Tab PO ONE (18:19)
== END 2019-10-16 18:40 | disposition short-term general hospital (02) ==
LOC: VM.ED 16:10
DX: J18.9 Pneumonia, unspecified organism (principal); C32.9 Malignant neoplasm of larynx, unspecified; J44.9 Chronic obstructive pulmonary disease, unspecified; G62.9 Polyneuropathy, unspecified; F41.9 Anxiety disorder, unspecified; F32.9 Major depressive disorder, single episode, unspecified; Z88.1 Allergy status to other antibiotic agents; Z91.040 Latex allergy status; Z88.2 Allergy status to sulfonamides; Z88.0 Allergy status to penicillin; Z91.013 Allergy to seafood; Z88.5 Allergy status to narcotic agent
CPT/HCPCS: 36415; 71045; 80053; 82550; 83605; 83880; 84484; 85025; 87040; 87804; 96365; 99285; A9270; J1956; J7030; U0002; 99284-GF

== ENCOUNTER 2019-11-08 18:08 | Emergency (ER) | payer MEDICARE, BC ==
[2019-11-08 18:37] VITALS: BP 117/62; PULSE 88
--- NOTE | 2019-11-08 18:45 | CR ---
[id number] RAD/RAD Chest PA And Lateral EXAM: RAD Chest PA And Lateral CLINICAL DATA: CHEST PAIN HISTORY OF HEAD AND NECK MALIGNANCY COMPARISON: CORRELATION IS MADE WITH OCTOBER 16, 2019 NOTE IS MADE OF THE CAT SCAN CHEST DATED AUGUST 09, 2019 FINDINGS: The cardiomediastinal contour is stable Surgical changes in the thoracic inlet are seen Surgical changes in both axillary regions are identified The aorta is tortuous The pulmonary arteries are prominent There is a degree of underlying interstitial lung disease There is air trapping A tracheostomy again is thought to be present IMPRESSION: AIRWAY DISEASE NO NEW FINDINGS OTHERWISE Alex Rangel MD 11/08/19 0308 Thank you for allowing us to participate in the care of your patient.
[2019-11-08 19:04] LABS: CHLORIDE,CL 100 mmol/L (98-107); SODIUM,NA 138 mmol/L (136-145)
[2019-11-08 19:07] LABS: ANION GAP 16.5 mmol/L (10-20)
--- NOTE | 2019-11-08 19:57 | EDM.PDOC ---
ED HPI GENERAL MEDICAL PROBLEM - General Chief Complaint: Chest Pain Time Seen by Provider: 11/08/19 18:15 Source of Information: Reports: Patient - History of Present Illness INITIAL COMMENTS - FREE TEXT/NARRATIVE: Pt with pressure in her chest after taking new oral pain medication No fever No SOB No cough Is a pressure sensation Does not radiate Onset: Today, Gradual Duration: Intermittent Location: Reports: Chest Severity: Mild Context: Reports: Other (New medication) Middle Chest Pain Score (Numeric/FACES): 5 - Related Data Allergies Allergy/AdvReac Type Severity Reaction Status Date / Time adhesive Allergy Rash Verified 11/08/19 18:36 amoxicillin Allergy Rash Verified 11/08/19 18:36 ceftriaxone Allergy Rash Verified 11/08/19 18:36 cephalexin Allergy Rash Verified 11/08/19 18:36 erythromycin base Allergy Rash Verified 11/08/19 18:36 hydroxyurea [From [place]] Allergy Other Verified 11/08/19 18:36 iodine Allergy Hives Verified 11/08/19 18:36 latex Allergy Rash Verified 11/08/19 18:36 Penicillins Allergy Rash Verified 11/08/19 18:36 Sulfa (Sulfonamide Allergy Rash Verified 11/08/19 18:36 Antibiotics) aspirin AdvReac Bleeding Verified 11/08/19 18:36 doxycycline AdvReac Rectal Verified 11/08/19 18:36 Bleeding Fish Containing Products AdvReac Nausea Verified 11/08/19 18:36 hydrocodone [From [place]] AdvReac Nausea Verified 11/08/19 18:36 NSAIDS (Non-Steroidal AdvReac Bleeding Verified 11/08/19 18:36 Anti-Inflamma perfume AdvReac Headache Verified 11/08/19 18:36 Home Meds: Home Meds Citalopram Hydrobromide [Celexa] 20 mg PO BEDTIME 01/02/15 [History] Omeprazole [Prilosec] 20 mg PO DAILY 01/02/15 [History] Arformoterol [Brovana] 15 mcg NEB BID 08/17/18 [History] Budesonide [Pulmicort] 0.5 mg NEB BID 08/17/18 [History] Levothyroxine [Synthroid] 150 mcg PO DAILY 08/17/18 [History] Albuterol [Proventil Neb Soln] 2.5 mg INH QIDRT PRN 10/16/19 [History] Calcium Carbonate [Calcium Carbonate 250 MG/ML Susp] 10 ml PO ASDIRECTED [History] LORazepam [Ativan] 0.5 mg PO ASDIRECTED PRN 10/16/19 [History] Ondansetron [Zofran ODT] 4 mg PO Q6H PRN 10/16/19 [History] calcitrioL [Rocaltrol] 0.5 mcg PO QID 10/16/19 [History] Past Medical History HEENT History: Reports: Other (See Below) Other HEENT History: laryngeal cancer, vocal cord cyst Cardiovascular History: Reports: Cardiomyopathy, Heart Failure, Other (See Below ) Other Cardiovascular History: aortic disorder Respiratory History: Reports: Bronchitis, Recurrent, COPD, Pneumonia, Recurrent , SOB, Other (See Below) Other Respiratory History: Pulmonary emphysema, centrilobular emphysema, acute respiratory failure with hypoxia Gastrointestinal History: Reports: GI Bleed, Hiatal Hernia, Other (See Below) Other Gastrointestinal History: 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, gastroentestinal hemorrhage Genitourinary History: Reports: Other (See Below) Other Genitourinary History: atrophic vaginitis VENEER REDRIER History: Reports: Other (See Below) Other VENEER REDRIER History: Atrophic vaginitis Musculoskeletal History: Reports: Other (See Below) Other Musculoskeletal History: broke right foot 8 years ago Neurological History: Reports: Neuropathy, Peripheral, Other (See Below) Other Neuro History: myelodysplastic syndrome Psychiatric History: Reports: Anxiety, Depression Endocrine/Metabolic History: Reports: Hypothyroidism, Osteopenia Hematologic History: Reports: Anemia, Iron Deficiency, Other (See Below) Other Hematologic History: Myelodysplastic Syndrome, thrombocytosis, bone marrow biopsy Oncologic (Cancer) History: Reports: Other (See Below) 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 Dermatologic History: Reports: Other (See Below) Other Dermatologic History: cutaneous abscess of chest wall - Infectious Disease History Infectious Disease History: Reports: C-Difficile, Other (See Below) Other Infectious Disease History: H. Pylori infection - Past Surgical History Other GI Surgeries/Procedures: endoscopy Social & Family History - Family History Family Medical History: Noncontributory - Tobacco Use Smoking Status *Q: Unknown Ever Smoked - Caffeine Use Caffeine Use: Reports: Coffee ED ROS GENERAL - Review of Systems Review Of Systems: See Below Constitutional: Reports: No Symptoms Respiratory: Reports: No Symptoms Cardiovascular: Reports: Chest Pain GI/Abdominal: Reports: No Symptoms Musculoskeletal: Reports: No Symptoms ED EXAM, GENERAL - Physical Exam Exam: See Below Exam Limited By: No Limitations General Appearance: Alert, WD/WN Respiratory/Chest: Lungs Clear Cardiovascular: Regular Rate, Rhythm GI/Abdominal: Soft, Non-Tender Extremities: Normal Inspection Course - Vital Signs Last Recorded V/S: Last Vital Signs Temp 98.6 F 11/08/19 18:08 Pulse 88 11/08/19 18:08 Resp 18 11/08/19 18:08 BP 117/62 11/08/19 18:08 Pulse Ox 92 L 11/08/19 18:08 - Orders/Labs/Meds Orders: Active Orders 24 hr Category Date Time Status EKG Documentation Completion [RC] STAT Care 11/08/19 18:15 Active Labs: Laboratory Tests 11/08/19 11/08/19 Range/Units 18:32 18:32 WBC 15.6 H (4.0-10.0) x10^3/uL RBC 3.27 L (4.00-5.50) x10^6/uL Hgb 8.3 L (12.0-16.0) g/dL Hct 26.9 L (33.0-47.0) % MCV 82.3 (78.0-93.0) fL MCH 25.4 L (26.0-32.0) pg MCHC 30.9 L (32.0-36.0) g/dL RDW Coeff of Marcos 30.2 H (10.0-15.0) % Plt Count 424 H (130-400) x10^3/uL Add Manual Diff Yes Neutrophils % (Manual) 77 (50-80) % Band Neutrophils % 2 (0-6) % Lymphocytes % (Manual) 11 L (25-50) % Monocytes % (Manual) 6 (2-11) % Eosinophils % (Manual) 3 (0-4) % Metamyelocytes % 1 H (0) % Platelet Estimate Increased H Giant Platelets Few H Hypochromasia 3+ marked H Poikilocytosis 3+ marked H Anisocytosis 3+ marked H Microcytosis 2+ moderate H Spherocytes 2+ moderate H Sodium 138 (136-145) mmol/L Potassium 4.5 (3.5-5.1) mmol/L Chloride 100 (98-107) mmol/L Carbon Dioxide 26 (21-32) mmol/L Anion Gap 16.5 (10-20) mmol/L BUN 18 (7-18) mg/dL Creatinine 1.2 H (0.55-1.02) mg/dL Est Cr Clr Drug Dosing TNP Estimated GFR (MDRD) 44 Glucose 93 (74-106) mg/dL Calcium 8.9 (8.5-10.1) mg/dL Corrected Calcium 9.22 (8.5-10.1) mg/dL Total Bilirubin 0.7 (0.2-1.0) mg/dL AST 16 (15-37) U/L ALT 16 (14-59) U/L Alkaline Phosphatase 68 (46-116) U/L Troponin I < 0.017 (<=0.056) ng/mL Total Protein 7.8 (6.4-8.2) g/dL Albumin 3.6 (3.4-5.0) g/dL Globulin 4.2 Albumin/Globulin Ratio 0.86 - Re-Assessments/Exams Free Text/Narrative Re-Assessment/Exam: 11/08/19 19:58 See lab Pt stable in ER Departure - Departure Time of Disposition: 20:00 Disposition: Home, Self-Care 01 Clinical Impression: Atypical chest pain Instructions: Nonspecific Chest Pain, Adult, [id number] Referrals: Alley John DO [Primary Care Provider] - Additional Instructions: Follow up in clinic Sepsis Event Note - Evaluation Sepsis Screening Result: No Definite Risk - Focused Exam Vital Signs: Vital Signs Temp Pulse Resp BP Pulse Ox 11/08/19 18:08 98.6 F 88 18 117/62 92 L Date Exam was Performed: 11/08/19 Time Exam was Performed: 19:50 - My Orders Last 24 Hours: My Active Orders 11/08/19 18:15 EKG Documentation Completion [RC] STAT - Assessment/Plan Last 24 Hours: My Active Orders 11/08/19 18:15 EKG Documentation Completion [RC] STAT
== END 2019-11-08 20:13 | disposition home or self-care (01) ==
LOC: VM.ED 18:08
DX: R07.89 Other chest pain (principal); I50.9 Heart failure, unspecified; J44.9 Chronic obstructive pulmonary disease, unspecified; F41.9 Anxiety disorder, unspecified; F32.9 Major depressive disorder, single episode, unspecified; Z88.1 Allergy status to other antibiotic agents; Z91.040 Latex allergy status; Z88.0 Allergy status to penicillin; Z88.8 Allergy status to other drugs, medicaments and biological substances; Z88.2 Allergy status to sulfonamides; Z91.013 Allergy to seafood; Z91.09 Other allergy status, other than to drugs and biological substances
CPT/HCPCS: 36415; 71046; 80053; 84484; 85025; 93005; 99284-GF; 99285-25

== ENCOUNTER 2020-04-01 17:52 | Inpatient (IN) | payer MEDICARE, BC, OTHER ==
[2020-04-01] MEDS ORDERED: Sodium Chloride 0.9% 1,000 ML IV ONE (18:03)
[2020-04-01] MEDS ORDERED: Levofloxacin/Dextrose 5%-Water 500 MG in Premix Bag 1 BAG IV ONE (18:11)
--- NOTE | 2020-04-01 18:23 | EDM.PDOC ---
ED HPI GENERAL MEDICAL PROBLEM - General Chief Complaint: Respiratory Problem Stated Complaint: fever, sob Time Seen by Provider: 04/01/20 17:52 Source of Information: Reports: Patient History Limitations: Reports: Other (stoma- use head nods and paper for communication ) - History of Present Illness INITIAL COMMENTS - FREE TEXT/NARRATIVE: Patient comes into the emergency department by EMS for complaint of fever and shortness of breath. Patient is currently on palliative radiation for Laryngeal cancer with a stoma placement. Patient is currently on oxygen at home and state s over the course of the day she has increased in shortness of breath and began having a fever. Patient is currently undergoing palliative radiation and has completed 3 out of the 5 days of radiation. Patient denies any active chest pain, dizziness, headache, blurred vision, nausea, vomiting, GI upset, or peripheral edema. Patient also denies any recent exposure to COVID-19 or any positive tests recently. Patient was recently hospitalized for an acute hospitalization stay and under went blood transfusions with a discharge on 03/20/20. Currently denies any thing that makes the symptoms better or worse and shakes her head when asked if she is in pain. Prior to arrival EMS did provide the patient with a DuoNeb for the patient does normally receive a DuoNeb scheduled around this time of the day. Patient states upon arrival to the emergency department that relief is noted with the DuoNeb provided. 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 (this am ) Left Neck Pain Score (Numeric/FACES): 7 - Related Data Allergies Allergy/AdvReac Type Severity Reaction Status Date / Time adhesive Allergy Rash Verified 03/17/20 19:38 amoxicillin Allergy Rash Verified 03/17/20 19:38 ceftriaxone Allergy Rash Verified 03/17/20 19:38 cephalexin Allergy Rash Verified 03/17/20 19:38 erythromycin base Allergy Rash Verified 03/17/20 19:38 hydroxyurea [From Hydrea] Allergy Other Verified 03/17/20 19:38 iodine Allergy Hives Verified 03/17/20 19:38 latex Allergy Rash Verified 03/17/20 19:38 Penicillins Allergy Rash Verified 03/17/20 19:38 Sulfa (Sulfonamide Allergy Rash Verified 03/17/20 19:38 Antibiotics) aspirin AdvReac Bleeding Verified 03/17/20 19:38 doxycycline AdvReac Rectal Verified 03/17/20 19:38 Bleeding Fish Containing Products AdvReac Nausea Verified 03/17/20 19:38 hydrocodone [From [place]] AdvReac Nausea Verified 03/17/20 19:38 NSAIDS (Non-Steroidal AdvReac Bleeding Verified 03/17/20 19:38 Anti-Inflamma perfume AdvReac Headache Verified 03/17/20 19:38 Home Meds: Home Meds Citalopram Hydrobromide [Celexa] 20 mg PO BEDTIME 01/02/15 [History] Omeprazole [Prilosec] 20 mg PO DAILY 01/02/15 [History] Arformoterol [Brovana] 15 mcg NEB BID 08/17/18 [History] Budesonide [Pulmicort] 0.5 mg NEB BID 08/17/18 [History] Levothyroxine [Synthroid] 150 mcg PO DAILY 08/17/18 [History] Albuterol [Proventil] 2.5 mg INH Q4HR PRN 10/16/19 [History] Calcium Carbonate [Calcium Carbonate 250 MG/ML Susp] 10 ml PO ASDIRECTED 10/16/19 [History] LORazepam [Ativan] 1 mg PO BID PRN 10/16/19 [History] Ondansetron [Zofran ODT] 4 mg PO Q4HR PRN 10/16/19 [History] calcitrioL [Rocaltrol] 0.5 mcg PO BID 10/16/19 [History] Furosemide 20 mg PO DAILY PRN 03/17/20 [History] Morphine [MS Contin] 15 mg PO BID 03/17/20 [History] Sodium Chloride for Inhalation [Hyper-Markel] 3 ml NEB QID 03/17/20 [History] dexAMETHasone [Dexamethasone] 4 mg PO BID 03/17/20 [History] Sennosides/Docusate Sodium [Senna Plus 8.6-50 mg Tablet] 3 tab PO BID 04/02/20 [History] Past Medical History HEENT History: Reports: Other (See Below) Other HEENT History: laryngeal cancer, vocal cord cyst Cardiovascular History: Reports: Cardiomyopathy, Heart Failure, Other (See Below) Other Cardiovascular History: aortic disorder Respiratory History: Reports: Bronchitis, Recurrent, COPD, Pneumonia, Recurrent, SOB, Other (See Below) Other Respiratory History: Pulmonary emphysema, centrilobular emphysema, acute respiratory failure with hypoxia Gastrointestinal History: Reports: GI Bleed, Hiatal Hernia, Other (See Below) Other Gastrointestinal History: 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, gastroentestinal hemorrhage Genitourinary History: Reports: Other (See Below) Other Genitourinary History: atrophic vaginitis 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) Other SALES SUPPORT TECHNICIAN History: Atrophic vaginitis Musculoskeletal History: Reports: Other (See Below) Other Musculoskeletal History: broke right foot 8 years ago Neurological History: Reports: Neuropathy, Peripheral, Other (See Below) Other Neuro History: myelodysplastic syndrome Psychiatric History: Reports: Anxiety, Depression Endocrine/Metabolic History: Reports: Hypothyroidism, Osteopenia Hematologic History: Reports: Anemia, Iron Deficiency, Other (See Below) Other Hematologic History: Myelodysplastic Syndrome, thrombocytosis, bone marrow biopsy Oncologic (Cancer) History: Reports: Other (See Below) 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 Dermatologic History: Reports: Other (See Below) Other Dermatologic History: cutaneous abscess of chest wall - Infectious Disease History Infectious Disease History: Reports: C-Difficile, Other (See Below) Other Infectious Disease History: H. Pylori infection - Past Surgical History Other GI Surgeries/Procedures: endoscopy Social & Family History - Family History Family Medical History: Noncontributory - Caffeine Use Caffeine Use: Reports: Coffee ED ROS GENERAL - Review of Systems Review Of Systems: Comprehensive ROS is negative, except as noted in HPI. Constitutional: Reports: Fever, Chills, Malaise, Weakness, Fatigue, Decreased Appetite HEENT: Reports: No Symptoms Respiratory: Reports: Shortness of Breath, Cough Cardiovascular: Reports: Dyspnea on Exertion Endocrine: Reports: No Symptoms GI/Abdominal: Reports: No Symptoms Musculoskeletal: Reports: No Symptoms Skin: Reports: No Symptoms Neurological: Reports: No Symptoms Psychiatric: Reports: No Symptoms Hematologic/Lymphatic: Reports: No Symptoms Immunologic: Reports: No Symptoms ED EXAM, GENERAL - Physical Exam Exam: See Below Exam Limited By: No Limitations General Appearance: Alert, WD/WN, Mild Distress Eye Exam: Bilateral Eye: EOMI, PERRL Head: Atraumatic, Normocephalic Neck: Normal Inspection, Supple, Non-Tender, Full Range of Motion Respiratory/Chest: Chest Non-Tender, Decreased Breath Sounds, Accessory Muscle Use Cardiovascular: Normal Peripheral Pulses, Regular Rate, Rhythm, No Edema Back Exam: Normal Inspection, Full Range of Motion Extremities: Normal Inspection, Normal Range of Motion, Non-Tender, Normal Capillary Refill Neurological: Alert, Oriented, Normal Gait Psychiatric: Normal Affect, Normal Mood Skin Exam: Warm, Dry, Intact, Normal Color Course - Vital Signs Last Recorded V/S: Last Vital Signs Temp 37.0 C 04/02/20 13:19 Pulse 83 04/02/20 13:19 Resp 20 04/02/20 13:19 BP 109/45 L 04/02/20 13:19 Pulse Ox 96 04/02/20 13:19 - Orders/Labs/Meds Orders: Active Orders 24 hr Category Date Time Status Oxygen Therapy [RC] ASDIRECTED Care 04/01/20 18:03 Active CULTURE BLOOD [BC] Stat Lab 04/01/20 18:35 Results CULTURE BLOOD [BC] Stat Lab 04/01/20 18:39 Results Blood Culture x2 Reflex Set [OM.PC] Stat Oth 04/01/20 18:03 Ordered Medication Orders Acetaminophen (Tylenol Solution 160 Mg/5 Ml) 600 mg PO TID [facility] Last Admin: 04/02/20 11:35 Dose: 5 ml Documented by: BEENA Acetaminophen (Tylenol Solution 160 Mg/5 Ml) 600 mg PO Q4H PRN PRN Reason: Pain Albuterol (Proventil Neb Soln) 2.5 mg INH QIDRT CHALINO Albuterol/Ipratropium (Duoneb 3.0-0.5 Mg/3 Ml) 3 ml NEB Q4H PRN PRN Reason: dyspnea/wheezing Arformoterol Tartrate (Brovana) 15 mcg NEB BIDRT [facility] Last Admin: 04/02/20 06:05 Dose: 15 mcg Documented by: GRETEL Budesonide (Pulmicort) 0.5 mg NEB BIDRT [facility] Last Admin: 04/02/20 06:05 Dose: 0.5 mg Documented by: GRETEL Calcitriol (Rocaltrol) 0.5 mcg PO BID [facility] Last Admin: 04/02/20 11:32 Dose: 0.5 mcg Documented by: BEENA Calcium Carbonate/Glycine (Calcium Carbonate 250 Mg/Ml Susp) 2,500 mg PO DAILY [facility] Last Admin: 04/02/20 11:34 Dose: 2,500 mg Documented by: BEENA Calcium Carbonate/Glycine (Calcium Carbonate 250 Mg/Ml Susp) 1,250 mg PO DAILY@1800 [facility] Cholecalciferol (Vitamin D3) 10 mcg PO DAILY [facility] Citalopram Hydrobromide (Celexa) 20 mg PO BEDTIME [facility] Dexamethasone (Dexamethasone) 4 mg IVPUSH Q12HR [facility] Last Admin: 04/02/20 11:32 Dose: 4 mg Documented by: Admin: 04/01/20 21:30 Dose: 4 mg Documented by: GRETEL Sodium Chloride (Normal Saline) 1,000 mls @ 50 mls/hr IV ASDIRECTED [facility] Last Admin: 04/01/20 20:45 Dose: 50 mls/hr Documented by: GRETEL Levofloxacin/Dextrose 250 mg/ (Premix) 50 mls @ 50 mls/hr IV Q24H [facility] Vancomycin HCl 750 mg/ Sodium (Chloride) 250 mls @ 333 mls/hr IV Q24H [facility] Levothyroxine Sodium (Synthroid) 150 mcg PO ACBREAKFAST [facility] Last Admin: 04/02/20 06:06 Dose: 150 mcg Documented by: GRETEL Lorazepam (Ativan) 1 mg PO BID PRN PRN Reason: Anxiety Magnesium Oxide (Magnesium Oxide) 400 mg PO BID [facility] Last Admin: 04/02/20 11:33 Dose: 400 mg Documented by: BEENA Morphine Sulfate (Morphine) 2 mg IVPUSH Q2H PRN PRN Reason: Pain Last Admin: 04/02/20 09:31 Dose: 2 mg Documented by: Admin: 04/01/20 21:40 Dose: 2 mg Documented by: GRETEL Morphine Sulfate (Ms Contin) 15 mg PO BID [facility] Last Admin: 04/02/20 11:32 Dose: 15 mg Documented by: BEENA Omeprazole (Omeprazole) 20 mg PO ACBREAKFAST [facility] Last Admin: 04/02/20 06:05 Dose: 20 mg Documented by: GRETEL Ondansetron HCl (Zofran Odt) 4 mg PO Q4H PRN PRN Reason: nausea, able to take PO Ondansetron HCl (Zofran) 4 mg IV Q4H PRN PRN Reason: Nausea/Vomiting Senna (Senna) 17.2 mg PO BID [facility] Sodium Chloride (Sodium Chloride 0.9%) 3 ml INH QIDRT [facility] Last Admin: 04/02/20 06:10 Dose: 3 ml Documented by: GRETEL Vancomycin HCl (Pharmacy To Dose - Vancomycin) 1 dose .XX ASDIRECTED [facility] Labs: Laboratory Tests 04/01/20 04/01/20 04/01/20 Range/Units 18:35 18:35 18:35 WBC 27.5 H* (4.0-10.0) x10^3/uL RBC 2.74 L (4.00-5.50) x10^6/uL Hgb 7.4 L D (12.0-16.0) g/dL Hct 23.5 L (33.0-47.0) % MCV 85.8 (78.0-93.0) fL MCH 27.0 (26.0-32.0) pg MCHC 31.5 L (32.0-36.0) g/dL RDW Coeff of Marcos 23.9 H (10.0-15.0) % Plt Count 356 D (130-400) x10^3/uL Add Manual Diff Yes Neutrophils % (Manual) 84 H (50-80) % Band Neutrophils % 3 (0-6) % Lymphocytes % (Manual) 4 L (25-50) % Monocytes % (Manual) 7 (2-11) % Metamyelocytes % 1 H (0) % Blast Cells % 1 H (0) % Platelet Estimate Adequate Hypochromasia 3+ marked H Anisocytosis 4+ H Ovalocytes 2+ moderate H Sodium 132 L (136-145) mmol/L Potassium 4.2 (3.5-5.1) mmol/L Chloride 96 L (98-107) mmol/L Carbon Dioxide 23 (21-32) mmol/L Anion Gap 17.2 (10-20) mmol/L BUN 24 H (7-18) mg/dL Creatinine 1.3 H (0.55-1.02) mg/dL Est Cr Clr Drug Dosing TNP Estimated GFR (MDRD) 40 Glucose 111 H (74-106) mg/dL Lactic Acid 1.5 (0.4-2.0) mmol/L Calcium 8.0 L (8.5-10.1) mg/dL Corrected Calcium 8.88 (8.5-10.1) mg/dL Total Bilirubin 0.6 (0.2-1.0) mg/dL AST 13 L (15-37) U/L ALT 12 L (14-59) U/L Alkaline Phosphatase 54 (46-116) U/L NT-Pro-B Natriuret Pep 1116 H (<=450) pg/mL Total Protein 6.8 (6.4-8.2) g/dL Albumin 2.9 L (3.4-5.0) g/dL Globulin 3.9 Albumin/Globulin Ratio 0.74 SARS CoV-2 RNA Rapid JASMIN (NEGATIVE) 04/01/20 Range/Units 19:10 WBC (4.0-10.0) x10^3/uL RBC (4.00-5.50) x10^6/uL Hgb (12.0-16.0) g/dL Hct (33.0-47.0) % MCV (78.0-93.0) fL MCH (26.0-32.0) pg MCHC (32.0-36.0) g/dL RDW Coeff of Marcos (10.0-15.0) % Plt Count (130-400) x10^3/uL Add Manual Diff Neutrophils % (Manual) (50-80) % Band Neutrophils % (0-6) % Lymphocytes % (Manual) (25-50) % Monocytes % (Manual) (2-11) % Metamyelocytes % (0) % Blast Cells % (0) % Platelet Estimate Hypochromasia Anisocytosis Ovalocytes Sodium (136-145) mmol/L Potassium (3.5-5.1) mmol/L Chloride (98-107) mmol/L Carbon Dioxide (21-32) mmol/L Anion Gap (10-20) mmol/L BUN (7-18) mg/dL Creatinine (0.55-1.02) mg/dL Est Cr Clr Drug Dosing Estimated GFR (MDRD) Glucose (74-106) mg/dL Lactic Acid (0.4-2.0) mmol/L Calcium (8.5-10.1) mg/dL Corrected Calcium (8.5-10.1) mg/dL Total Bilirubin (0.2-1.0) mg/dL AST (15-37) U/L ALT (14-59) U/L Alkaline Phosphatase (46-116) U/L NT-Pro-B Natriuret Pep (<=450) pg/mL Total Protein (6.4-8.2) g/dL Albumin (3.4-5.0) g/dL Globulin Albumin/Globulin Ratio SARS CoV-2 RNA Rapid JASMIN Negative (NEGATIVE) Meds: Medications Generic Name Dose Route Start Last Admin Trade Name Freq PRN Reason Stop Dose Admin Acetaminophen 600 mg 04/02/20 12:00 04/02/20 11:35 Tylenol Solution 160 Mg/5 Ml PO 5 ml TID CHALINO Administration Acetaminophen 600 mg 04/02/20 10:05 Tylenol Solution 160 Mg/5 Ml PO Q4H PRN Pain Albuterol 2.5 mg 04/02/20 11:00 Proventil Neb Soln INH QIDRT CHALINO Albuterol/Ipratropium 3 ml 04/01/20 20:39 Duoneb 3.0-0.5 Mg/3 Ml NEB Q4H PRN dyspnea/wheezing Arformoterol Tartrate 15 mcg 04/02/20 07:00 04/02/20 06:05 Brovana NEB 15 mcg BIDRT CHALINO Administration Budesonide 0.5 mg 04/02/20 07:00 04/02/20 06:05 Pulmicort NEB 0.5 mg BIDRT CHALINO Administration Calcitriol 0.5 mcg 04/02/20 08:00 04/02/20 11:32 Rocaltrol PO 0.5 mcg BID CHLAINO Administration Calcium Carbonate/Glycine 2,500 mg 04/02/20 08:00 04/02/20 11:34 Calcium Carbonate 250 Mg/Ml Susp PO 2,500 mg DAILY CHALINO Administration Calcium Carbonate/Glycine 1,250 mg 04/02/20 18:00 Calcium Carbonate 250 Mg/Ml Susp PO DAILY@1800 CHALINO Cholecalciferol 10 mcg 04/02/20 08:00 Vitamin D3 PO DAILY CHALINO Citalopram Hydrobromide 20 mg 04/02/20 20:00 Celexa PO BEDTIME CHALINO Dexamethasone 4 mg 04/01/20 20:45 04/02/20 11:32 Dexamethasone IVPUSH 4 mg Q12HR CHALINO Administration Sodium Chloride 1,000 mls @ 50 mls/hr 04/01/20 20:45 04/01/20 20:45 Normal Saline IV 50 mls/hr ASDIRECTED CHALINO Administration Levofloxacin/Dextrose 250 mg/ 50 mls @ 50 mls/hr 04/02/20 18:00 Premix IV Q24H CHALINO Vancomycin HCl 750 mg/ Sodium 250 mls @ 333 mls/hr 04/02/20 18:00 Chloride IV Q24H [facility] Levothyroxine Sodium 150 mcg 04/02/20 07:00 04/02/20 06:06 Synthroid PO 150 mcg ACBREAKFAST CHALINO Administration Lorazepam 1 mg 04/01/20 20:49 Ativan PO BID PRN Anxiety Magnesium Oxide 400 mg 04/02/20 09:15 04/02/20 11:33 Magnesium Oxide PO 400 mg BID CHALINO Administration Morphine Sulfate 2 mg 04/01/20 20:34 04/02/20 09:31 Morphine IVPUSH 2 mg Q2H PRN Administration Pain Morphine Sulfate 15 mg 04/02/20 08:00 04/02/20 11:32 Ms Contin PO 15 mg BID CHALINO Administration Omeprazole 20 mg 04/02/20 07:00 04/02/20 06:05 Omeprazole PO 20 mg ACBREAKFAST CHALINO Administration Ondansetron HCl 4 mg 04/01/20 20:39 Zofran Odt PO Q4H PRN nausea, able to take PO Ondansetron HCl 4 mg 04/01/20 20:39 Zofran IV Q4H PRN Nausea/Vomiting Senna 17.2 mg 04/02/20 20:00 Senna PO BID CHALINO Sodium Chloride 3 ml 04/02/20 07:00 04/02/20 06:10 Sodium Chloride 0.9% INH 3 ml QIDRT CHALINO Administration Vancomycin HCl 1 dose 04/02/20 10:15 Pharmacy To Dose - Vancomycin .XX ASDIRECTED [facility] Discontinued Medications Generic Name Dose Route Start Last Admin Trade Name Freq PRN Reason Stop Dose Admin Acetaminophen 400 mg 04/01/20 18:14 04/02/20 02:39 Tylenol Solution 160 Mg/5 Ml PO 400 mg Q4H PRN Administration Pain Dexamethasone 2 mg 04/02/20 08:00 Dexamethasone IVPUSH Q12HR [facility] Sodium Chloride 1,000 mls @ 1,000 mls/hr 04/01/20 18:03 04/01/20 20:30 Normal Saline IV 04/01/20 19:02 Not Given ONETIME ONE Levofloxacin/Dextrose 500 mg/ 100 mls @ 100 mls/hr 04/01/20 18:11 04/01/20 18:54 Premix IV 04/01/20 19:10 100 mls/hr ONETIME ONE Administration Levofloxacin/Dextrose 500 mg/ 100 mls @ 100 mls/hr 04/01/20 20:45 04/02/20 11:44 Premix IV Not Given Q24H CHALINO Vancomycin HCl 1 gm/ Sodium 250 mls @ 250 mls/hr 04/01/20 21:00 04/02/20 11:44 Chloride IV Not Given Q12H CHALINO Vancomycin HCl 1 gm/ Sodium 250 mls @ 250 mls/hr 04/01/20 23:30 04/01/20 23:40 Chloride IV 04/02/20 00:29 250 mls/hr ONETIME ONE Administration Departure - Departure Time of Disposition: 18:30 Disposition: Admitted As Inpatient 68 Condition: Good Clinical Impression: Pneumonia Qualifiers: Pneumonia type: due to unspecified organism Laterality: left Lung location: lower lobe of lung Qualified Code(s): J18.9 - Pneumonia, unspecified organism - Discharge Information *PRESCRIPTION DRUG MONITORING PROGRAM REVIEWED*: Not Applicable *COPY OF PRESCRIPTION DRUG MONITORING REPORT IN PATIENT PEDRO: Not Applicable - My Orders Last 24 Hours: My Active Orders 04/01/20 18:03 Oxygen Therapy [RC] ASDIRECTED Blood Culture x2 Reflex Set [OM.PC] Stat 04/01/20 18:35 CULTURE BLOOD [BC] Stat 04/01/20 18:39 CULTURE BLOOD [BC] Stat - Assessment/Plan Last 24 Hours: My Active Orders 04/01/20 18:03 Oxygen Therapy [RC] ASDIRECTED Blood Culture x2 Reflex Set [OM.PC] Stat 04/01/20 18:35 CULTURE BLOOD [BC] Stat 04/01/20 18:39 CULTURE BLOOD [BC] Stat Assessment:: 1. fever 2. shortness of breath 3. sepsis 4. pneumonia Plan: 1. Sepsis protocol initiated and followed 2. Labs completed in the ER. Results reviewed with the patient 3. Blood cultures completed 4. IV initiated in the emergency department 5. IV fluids provided 6. EKG completed in ER. 7. Levofloxacin orderer and given in the ER for fever, SOB, and sepsis protocol 8. Covid-19 testing completed 9. Rapid influenza completed in ER. 10. Consultation completed with-Dr. Alley John who will admit to acute care for medical management of this patient 11. Patient and nursing staff was updated regarding the plan of care 12. Patient and family are agreeable to the above plan of care 13. All questions and concerns were addressed with the patient and family prior to discharge
[2020-04-01] MEDS: Acetaminophen Susp 160 MG/5 ML 120 ML Bottle PO PRN (19:02)
--- NOTE | 2020-04-01 19:14 | CR ---
[id number] RAD/RAD Chest Portable EXAM: PORTABLE CHEST RADIOGRAPH. INDICATION: SHORTNESS OF BREATH COMPARISON: CORRELATION IS MADE WITH NOVEMBER 08, 2019 FINDINGS: The lungs are clear. A tracheostomy is seen Surgical changes are seen. The cardiomediastinal contour is prominent but stable. The regional bones and soft tissues are unremarkable. There is no pneumothorax. IMPRESSION: NO ACUTE PROCESS. Alex Rangel MD 04/01/20 0928 Thank you for allowing us to participate in the care of your patient.
[2020-04-01 19:16] LABS: CHLORIDE,CL 96 mmol/L (98-107); SODIUM,NA 132 mmol/L (136-145)
[2020-04-01 19:18] LABS: ANION GAP 17.2 mmol/L (10-20)
[2020-04-01] MEDS ORDERED: Ondansetron 4 MG/2 ML SDV IV PRN (20:39)
[2020-04-01] MEDS ORDERED: Albuterol/Ipratropium 3.0-0.5 MG/3 ML Neb Soln NEB PRN (20:39)
[2020-04-01] MEDS ORDERED: Ondansetron 4 MG Tab.DIS PO PRN (20:39)
[2020-04-01] MEDS ORDERED: Sodium Chloride 0.9% 1,000 ML IV SCH (20:45)
[2020-04-01] MEDS ORDERED: Levofloxacin/Dextrose 5%-Water 500 MG in Premix Bag 1 BAG IV SCH (20:45)
[2020-04-01] MEDS ORDERED: LORazepam 1 MG Tab PO PRN (20:49)
[2020-04-01] MEDS: Dexamethasone 4 MG/ML SDV IVPUSH SCH (21:30)
[2020-04-01] MEDS: Morphine 2 MG/ML SYRINGE IVPUSH PRN (21:40)
--- NOTE | 2020-04-02 01:42 | HP ---
CHIEF COMPLAINT: A 79-year old with known recurrent laryngeal cancer, who has been undergoing palliative radiation since the and had her 2nd treatment on the . HISTORY OF PRESENT ILLNESS: The patient comes in today with her due to getting more weak, fever and trouble breathing. The patient has had more secretions from her tracheostomy as well. Temp on arrival was 102. She did receive a nebulizer in the ambulance. She was tachypneic, but her breathing improved after the nebulizer. She has not reported any chest pain, no abdominal pain, but she does have pain in her neck. The Tylenol was not helping as much. The oxycodone constipates her. She is on morphine. The patient has not been able to eat much, but she states she is hungry now. She has not had any burning with urination. She had been constipated, but with prune juice that cleared up. She recently over Labor Day about 2 weeks ago had an admission for hyponatremia and anemia with nausea, vomiting, and constipation. Recently, she had been started on dexamethasone. She is currently taking that 4 mg twice daily. The patient does have multiple antibiotic allergies. The patient has a history of MRSA in the past, multiple antibiotic allergies, so she was given Levaquin on admission. The patient has not noticed any bleeding. Her hemoglobin in the clinic recently was up to 8.8. Her sodium was low at 128. ALLERGIES: Include iodine hives, penicillin rash, [place], nausea, aspirin GI bleeding, cephalexin rash, doxycycline melena, erythromycin rash, fish nausea, Flagyl rash, Hydrea cannot tolerate, latex, NSAIDs GI bleeding, Rocephin rash and nausea, sulfa rash, tape, and adhesives. MEDICATION LIST: Includes Pulmicort and Brovana nebs, oxycodone 5 mg 3 times a day currently taking p.r.n. due to being started on morphine 15 mg twice daily about a month ago, Celexa 20 mg daily, saline nebulized solution 4 times a day, albuterol nebulizer every 4 hours as needed for shortness of breath or wheezing, levothyroxine 150 daily, Rocaltrol 0.5 b.i.d., calcium 2600 in the evening, and Prilosec 20 mg daily. PAST MEDICAL HISTORY: Quite complex includes underlying anemia with myelodysplastic syndrome for many years. She also has chronic leukocytosis. She has had previous smoking, but she did quit. She has had anxiety. She has had previous bacterial pneumonia. She has had previous deep neck tissue infections. She has had MRSA colonization. She has had bronchiectasis and emphysema, cardiomyopathy, but her EF did improve up to 60% when checked last month. She has had the COPD, chronic hypoxia on 2 L of oxygen through her trach mask. GERD, H pylori in the past, hiatal hernia. The laryngeal cancer with radiation and then surgery, then a third recurrence. 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 PAST SURGICAL HISTORY: The patient has had endoscopies multiple times, skin biopsies, neck dissection in 10/2018, laryngectomy in 2018, G-tube placement in the past but has been removed, toe surgery in the past, colonoscopies, bronchoscopies, breast biopsies, bone marrow biopsies. SOCIAL HISTORY: The patient is . She lives at home with her . She has quit smoking for several years. She has 2 children. FAMILY HISTORY: Both parents are . Her mother had diabetes. Father had cirrhosis. REVIEW OF SYSTEMS: General: The patient is not aware of any weight changes. HEENT: She has had a sore throat that has been chronic. It did not get worse since radiation. She has had trouble swallowing. Cardiac: No chest pain, no palpitations, but she has had some shortness of breath. No edema. Respiratory: She has had more cough and sputum production. Abdomen: Otherwise, some constipation which has improved. No nausea or vomiting. : No burning. No trouble with urination. Musculoskeletal: She has no new back pain. Skin: No new skin rashes. Otherwise, all systems reviewed and found to be negative unless otherwise stated. PHYSICAL EXAMINATION: Vital Signs: Currently, her temperature did finally drop to the normal range but had been 102 at 1752 hours and still 100.7 at 1900 hours. Her pulse is 100. Her blood pressure 125/81, respiratory rate 33, and O2 of 95% on 6 L with the trach mask. General: She is in no acute distress even though she is mildly tachypneic. She is sitting up. She is not tripoding. Heart: Regular rate and rhythm. S1, S2 without murmur. Chest: Lung sounds are decreased with scattered rhonchi and wheezes. Abdomen: Positive bowel sounds. It is soft, nontender. Extremities: Warm and dry. No redness. No edema. Mental status: She is alert and orientated x3. Due to her trach, she does have some hard time talking. She writes down things to express her needs. She also has the trach in place with a firm area. However, it actually does appear quite decreased since the last time I saw her. Throat is clear. There are no exudates. DIAGNOSTIC DATA: EKG; sinus rhythm with tachycardia. Chest x-ray; radiologist read as no infiltrates. I feel there may be some developing infiltrates on the right mid upper lung. Lab work shows her white count at 27,500, although that is actually better than her lab that was just done on the , where her white count was 36,000 on the . Hemoglobin going down to 7.4, platelets 356. Sodium 132, potassium 4.2, chloride 96, bicarb 23, BUN 24, creatinine 1.3, glucose 111, lactic 1.5, calcium 8, bilirubin 0.6, AST 13, ALT 12, alkaline phosphatase normal. ProBNP 1116. Albumin 2.9. COVID and influenza testing negative. Blood cultures pending. ASSESSMENT AND PLAN: 1. Sepsis. Likely source is a community-acquired pneumonia, although the patient has been admitted to [facility] for pneumonia back in February. Therefore, with her history of MRSA colonization, I will go ahead and start her on IV vancomycin. She has already got the Levaquin in the ER. She is currently requiring about 6 L of oxygen, where as she was requiring up to 10 L when she was through her trach collar in [facility]. We will collect sputum cultures. We will also get UA to rule out any other infection given her fevers. 2. 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 She has had 2 treatments. She is due for a treatment next week. I will give her IV dexamethasone. We will see how she does for infection. I will update her radiation oncologist on Friday. 3. Hypocalcemia. We will continue her calcium supplements. I will add some vitamin D. This is a chronic problem for her. 4. Severe malnutrition. The patient will be allowed to eat a diet. 5. Hyponatremia. This is actually improved from her recent clinic reading. It could be related to poor oral intake and acute illness. We will repeat tomorrow. I will give her some gentle IV fluids due to her having fevers and poor oral intake. 6. Renal insufficiency, probably mild dehydration due to acute illness. We will repeat a creatinine tomorrow. 7. Acute on chronic anemia. Hemoglobin has dropped slightly, which may increase her work of breathing. I will repeat a hemoglobin in the morning with a type and cross. We will transfuse her if she is under 7. 8. Leukocytosis due to her underlying myelodysplastic syndrome. She does have 1% blast cells and also likely due to her infection, 84% neutrophils and 3% bands. We will repeat lab work tomorrow. 9. History of gastrointestinal bleeding. We will continue her PPI. 10.Anxiety and depression. I will continue her Celexa. 11.Cancer-related pain. I will have her regular oral morphine available and also p.r.n. IV morphine. 12.Bowel regimen. We will continue her senna. 13.Emphysema with exacerbation due to pneumonia. The patient has already been getting oral dexamethasone. We will be giving this IV. We will give her scheduled and p.r.n. nebs. We will continue her home nebulizers as well. 14.Also, patient has a known history of severe pulmonary hypertension. Given her recurrent cancer and other health conditions, no aggressive workup for this was pursued. Oxygen will remain her treatment. PLAN: The patient is admitted for acute and compassionate cares. She does not require currently any transfer to [facility], and she understands that this current treatments of IV antibiotics, potential blood transfusion, oxygen, IV steroids can all be given here. She will also be doing her saline trach rinses like she does at home, so her does help to assist her with those, so will be allowed in our facility. We will continue her other oral medications as she is able to swallow them. We will change to IV or liquids if needed. We will allow her a diet. We will start with soft foods and progress as needed. I will get sputum cultures. We will follow her blood cultures and de-escalate antibiotics. For now, she is on vancomycin and Levaquin. IV fluids will be normal saline at 50 mL/hr. I will get a troponin in the morning. Her proBNP was mildly elevated. However, clinically she does not appear to be in CHF. We will hold her p.r.n. Lasix which she normally does not take at home. I have also decided not to repeat her lactic acid given her compassionate and comfort care status. She is code level 5. For DVT prophylaxis, I will place her on SCDs. MKA: 04/01/2020 21:13:09 MODL: 04/02/2020 01:31:27 /[id number]
[2020-04-02] MEDS: Acetaminophen Susp 160 MG/5 ML 120 ML Bottle PO PRN (02:39)
[2020-04-02] MEDS: Budesonide 0.5 MG/2 ML Neb Susp NEB SCH ×2 (06:05→20:02)
[2020-04-02] MEDS: Omeprazole 20 MG Cap.CR PO SCH (06:05)
[2020-04-02] MEDS: Arformoterol 15 MCG/2 ML Neb Soln NEB SCH ×2 (06:05→20:02)
[2020-04-02] MEDS: Levothyroxine 100 MCG Tab PO SCH (06:06)
[2020-04-02] MEDS: Sodium Chloride 0.9% Inhalation Soln 5 ML Neb INH SCH ×4 (06:10→20:09)
[2020-04-02] MEDS ORDERED: Dexamethasone 10 MG/ML SDV IVPUSH SCH (08:00)
[2020-04-02] MEDS: Morphine 2 MG/ML SYRINGE IVPUSH PRN (09:31)
[2020-04-02] MEDS ORDERED: Acetaminophen Susp 160 MG/5 ML 120 ML Bottle PO PRN (10:05)
--- NOTE | 2020-04-02 10:35 | PN ---
Progress Note for HORTENSIA SHEPARD Date: 04/02/2020 Room #: VM.212 SUBJECTIVE: This is hospital day #2 on a 79-year-old admitted for fevers and pneumonia. She has underlying laryngeal cancer which is recurrent and is undergoing palliative radiation started last week. She has not had any further fever since admission. She is still having some shortness of breath and coughing. Otherwise, she was able to eat something last night. She is hoping to eat a little bit more today, having a little bit of trouble swallowing still, but no worse than before. She denies any chest pain. She did receive IV morphine last night for her neck pain and is going to be taking another dose this morning. Otherwise, she uses Tylenol that has been p.r.n. OBJECTIVE: Vital Signs: Her weight 56.6 kg, temperature 98, pulse 75, blood pressure 99/46, respiratory rate 19, and O2 of 99% on 2 L. General: She is in no acute distress. Heart: Regular rate and rhythm with no murmur. Lungs: Lung sounds are decreased with some expiratory wheezing appreciated. She does have some crackles over the right base. Abdomen: Soft, nondistended, and nontender. Extremities: Warm and dry. No edema. Mental Status: She is alert. She is orientated x3. We do communicate with each other by writing due to her trach. Her neck is examined and she does have swelling and firmness there, but overall it is down from previous checks. ASSESSMENT: 1. Sepsis secondary to community-acquired pneumonia with history of MRSA and pneumonia. The patient is doing well on IV vanco. We will adjust dosing per pharmacy and also Levaquin, also adjust dosing to 250 daily per pharmacy. Cultures have already been requested. 2. Pneumonia. This is recurrent. She had a hospital admission last month due to allergy. She is currently on vanco and Levaquin and improving. 3. 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 She is on IV dexamethasone due to some difficulty with swallowing, likely I will be able to switch her over to oral tomorrow. Also, she has radiation planned. I have already sent off a message to her radiation oncologist and we will call them as well tomorrow. Due to her acute illness I suspect they will not be able to do her radiation. 4. Hypocalcemia. She is on calcium and vitamin D supplements. 5. Severe malnutrition. We are encouraging a diet. 6. Hyponatremia, improved. I am going to stop IV fluids. 7. Renal insufficiency probably due to acute illness, improving. 8. Acute on chronic anemia. She has not had any melena or acute bleeding. I suspect the slight drop from 7 to 6.5 was from hemodilution, but we will transfuse her 1 unit of packed red blood cells today. 9. Leukocytosis with underlying myelodysplastic syndrome. This is actually improving. 10.History of gastrointestinal bleeding. She is on a PPI. 11.Anxiety and depression, on Celexa. 12.Cancer related pain. She is on scheduled oral morphine. I am going to also schedule her Tylenol. She has p.r.n. of morphine and Tylenol available as well. 13.Bowel regimen. She is on senna. She has some slight hypomagnesemia. We will add magnesium as well. 14.Emphysema with exacerbation due to pneumonia. She is already getting the dexamethasone. She is on her scheduled and p.r.n. nebulizers. 15.Severe pulmonary hypertension. She is on oxygen. PLAN: The patient is going to continue acute cares with IV Levaquin and vanco. Today, we will transfuse her 1 unit and repeat lab work tomorrow. I will stop her IV fluids. We will allow her a diet. We will follow cultures and deescalate antibiotics as able. Code level 5. For DVT prophylaxis, due to concern for bleeding I will place her on SCDs. MKA: 04/02/2020 10:12:16 MODL: 04/02/2020 10:28:27 /[id number]
[2020-04-02] MEDS ORDERED: Albuterol 2.5 MG/0.5 ML UD Neb INH SCH (11:00)
[2020-04-02] MEDS: Calcitriol 0.25 MCG Cap PO SCH ×2 (11:32→20:02)
[2020-04-02] MEDS: Morphine 15 MG Tab.ER PO SCH ×2 (11:32→20:02)
[2020-04-02] MEDS: Dexamethasone 4 MG/ML SDV IVPUSH SCH ×2 (11:32→20:03)
[2020-04-02] MEDS: Magnesium Oxide 400 MG Tab PO SCH ×2 (11:33→20:03)
[2020-04-02] MEDS: Calcium Carbonate 1,250 MG/5 ML Susp 5 ML UD Cup PO SCH ×2 (11:34→17:22)
[2020-04-02] MEDS: Acetaminophen Susp 160 MG/5 ML 120 ML Bottle PO SCH ×2 (11:35→20:14)
[2020-04-02] MEDS: Albuterol 0.083% 2.5 MG/3 ML Neb Soln INH SCH ×2 (15:26→20:00)
[2020-04-02] MEDS ORDERED: Levofloxacin/Dextrose 5%-Water 250 MG in Premix Bag 1 BAG IV SCH (18:00)
[2020-04-02] MEDS: Citalopram 20 MG Tab PO SCH (20:03)
[2020-04-02] MEDS: Sennosides 8.6 MG Tab PO SCH (20:03)
[2020-04-03] MEDS: Levothyroxine 100 MCG Tab PO SCH (06:15)
[2020-04-03] MEDS: Omeprazole 20 MG Cap.CR PO SCH (06:15)
[2020-04-03] MEDS: Albuterol 0.083% 2.5 MG/3 ML Neb Soln INH SCH ×4 (07:25→21:09)
[2020-04-03] MEDS: Budesonide 0.5 MG/2 ML Neb Susp NEB SCH ×2 (07:26→20:53)
[2020-04-03] MEDS: Arformoterol 15 MCG/2 ML Neb Soln NEB SCH ×2 (07:27→20:53)
[2020-04-03] MEDS: Acetaminophen Susp 160 MG/5 ML 120 ML Bottle PO SCH ×3 (08:18→20:58)
[2020-04-03] MEDS: Dexamethasone 4 MG/ML SDV IVPUSH SCH ×2 (08:21→20:53)
[2020-04-03] MEDS: Calcium Carbonate 1,250 MG/5 ML Susp 5 ML UD Cup PO SCH ×2 (08:21→18:49)
[2020-04-03] MEDS: Morphine 15 MG Tab.ER PO SCH ×2 (08:21→21:01)
[2020-04-03] MEDS: Calcitriol 0.25 MCG Cap PO SCH ×2 (08:21→21:00)
[2020-04-03] MEDS: Sennosides 8.6 MG Tab PO SCH ×2 (08:22→20:53)
[2020-04-03] MEDS: Magnesium Oxide 400 MG Tab PO SCH ×2 (08:22→20:53)
[2020-04-03] MEDS ORDERED: Levofloxacin 250 MG Tab PO SCH (14:00)
--- NOTE | 2020-04-03 14:24 | PN ---
Progress Note for HORTENSIA SHEPARD Date: 04/03/2020 Room #: VM.212 SUBJECTIVE: This is hospital day #3 on a 79-year-old admitted with healthcare- associated pneumonia and history of MRSA colonization. The patient's sputum today is growing staph. She has been afebrile now since admit, but her white count went up to 27,000. Overall, she is feeling better. She is still coughing up a lot of stuff. She is able to get it up, but RT is planning on trying to suction her, which she does do at home. She is using her nebulizers. She is on the flow-by oxygen 3 L and saturating well. She is on oxygen at home. She is denying any pain other than in her neck, but has not gotten any IV morphine since yesterday morning. She was actually due for her third treatment of palliative radiation today; however, Radiation Oncology feels it is more important to continue getting her antibiotics and they will resume her course on Friday with a makeup session likely next week since the goals of her treatments are palliative. The patient was eating well. She ate 100% of her breakfast this morning. She has not had any vomiting. She has had no bowel movements recorded. No diarrhea. No abdominal pain. OBJECTIVE: Vital Signs: Include a temperature of 98, pulse 90, blood pressure 106/57, respiratory rate 19, and O2 of 98% on 3 L. General: She is in no acute distress. Heart: Regular rate and rhythm. S1, S2 without murmur. Lungs: Sounds show decreased and diffuse rhonchi throughout. Abdomen: Nondistended. Positive bowel sounds. Soft, nontender. Extremities: Warm and dry. No edema. Mental Status: Alert and orientated x3. Skin: No significant paleness. LABORATORY DATA: Lab work does show white count up to 27,000, hemoglobin up to 7.8, platelets of 318. Sodium 134, potassium 4, chloride 98, bicarb 26, BUN 16, creatinine 1.1, glucose 97, calcium low at 7.6 but coming up. Albumin low at 2.9 on admit. ASSESSMENT AND PLAN: 1. Sepsis secondary to hospital-acquired pneumonia with history of methicillin- resistant Staphylococcus aureus, resolving. No fevers. No tachycardia. We will continue acute treatments with IV vanco. I am going to switch her Levaquin over to oral. 2. Healthcare-associated pneumonia. Continue with the same treatments and await her culture. 3. Severe hypocalcemia. She will continue on her replacements. 4. Moderate malnutrition. Diet has been encouraged. 5. Recurrent laryngeal cancer. She is undergoing palliative radiation with plan to resume treatments on Friday. She is on dexamethasone. 6. Anxiety. She will continue her citalopram. 7. Renal insufficiency, resolved. We have stopped IV fluids. 8. Chronic anemia. No indication for transfusion. Did get 1 unit yesterday. 9. Leukocytosis, worsening with underlying myelodysplastic syndrome. We will repeat tomorrow. 10.History of gastrointestinal bleeding. She is on a PPI. 11.Bowel regimen. She is on the senna. She is now on magnesium. Hopefully, she will have a bowel movement today. Otherwise, we will start MiraLAX. 12.Known emphysema with exacerbation due to pneumonia. She is on nebulizers. She is on dexamethasone. 13.Severe pulmonary hypertension. She is on home oxygen. The plan at this point: We will change Levaquin to oral. We will continue IV vancomycin and await sputum cultures. We will repeat lab work tomorrow for DVT prophylaxis due to cancer and concern for bleeding. She is on SCDs. MKA: 04/03/2020 14:01:26 MODL: 04/03/2020 14:15:31 /[id number]
[2020-04-03] MEDS: Citalopram 20 MG Tab PO SCH (20:53)
[2020-04-04] MEDS: Morphine 2 MG/ML SYRINGE IVPUSH PRN (02:12)
[2020-04-04 02:21] VITALS: PULSE 80
[2020-04-04 06:00] VITALS: BP 117/56
[2020-04-04] MEDS: Levothyroxine 100 MCG Tab PO SCH (06:34)
[2020-04-04] MEDS: Omeprazole 20 MG Cap.CR PO SCH (06:34)
[2020-04-04] MEDS: Budesonide 0.5 MG/2 ML Neb Susp NEB SCH (07:11)
[2020-04-04] MEDS: Albuterol 0.083% 2.5 MG/3 ML Neb Soln INH SCH ×2 (07:11→11:00)
[2020-04-04 07:26] LABS: ANION GAP 15.4 mmol/L (10-20)
[2020-04-04] MEDS: Arformoterol 15 MCG/2 ML Neb Soln NEB SCH (07:31)
[2020-04-04] MEDS: Calcium Carbonate 1,250 MG/5 ML Susp 5 ML UD Cup PO SCH (08:38)
[2020-04-04] MEDS: Dexamethasone 4 MG/ML SDV IVPUSH SCH (08:38)
[2020-04-04] MEDS: Calcitriol 0.25 MCG Cap PO SCH (08:38)
[2020-04-04] MEDS: Morphine 15 MG Tab.ER PO SCH (08:38)
[2020-04-04] MEDS: Magnesium Oxide 400 MG Tab PO SCH (08:39)
[2020-04-04] MEDS: Sennosides 8.6 MG Tab PO SCH (08:39)
[2020-04-04] MEDS: Acetaminophen Susp 160 MG/5 ML 120 ML Bottle PO SCH ×2 (08:39→12:10)
[2020-04-04] MEDS: Cholecalciferol (Vitamin D3) 10 MCG Tab PO SCH (10:20)
--- NOTE | 2020-04-05 09:51 | DISCH ---
PRIMARY DISCHARGE DIAGNOSES: 1. A healthcare-associated pneumonia due to Staphylococcus aureus, not clear if it is methicillin-resistant Staphylococcus aureus or not to the right mid lung. 2. Sepsis due to the Staphylococcus aureus pneumonia, improving. No fevers in 48 hours. 3. Severe hypocalcemia, on replacement. 4. Moderate malnutrition. 5. Recurrent laryngeal cancer, undergoing palliative radiation. 6. Anxiety. 7. Renal insufficiency on admission, resolved, likely due to acute illness. 8. Chronic anemia, requiring 1 unit of packed red blood cells for hemoglobin of 6.5. It was up to 7.9 and stable on discharge. 9. Cancer related pain. She did receive a couple of doses of intravenous morphine while she was here. Otherwise, was managed with her oral morphine and Tylenol. 10.Remote history of gastrointestinal bleeding. She is on a proton pump inhibitor. 11.Emphysema with exacerbation due to pneumonia. She is on nebulizers and the dexamethasone, which is for her cancer. 12.Severe pulmonary hypertension, on home oxygen. REASON FOR ADMISSION: On the date of admission, this 79-year-old female was brought into the emergency room. She had been having more cough and sputum. She does suction at home. She has a trach due to her previous surgeries. She was not able to tolerate further treatments for the laryngeal cancer as she was getting pneumonias and having hospital admissions from that, but her cancer was growing. It was very painful in her neck. She underwent 2 radiation treatments last week and was scheduled for 1 yesterday, but they postponed it. She otherwise had a sputum culture that was showing Staph with a known history of MRSA colonization, so the patient was treated with IV vancomycin and Levaquin. We switched over to oral Levaquin yesterday. The patient's pain was also improved. She had some swelling after radiation, but that went down. She was eating well. She was tolerating a diet. Lung sounds were much more clear today. Respiratory Therapy had seen her as well. The patient also has a history of a deep tissue infection in the neck. PHYSICAL EXAMINATION: Vital Signs: Otherwise, discharge vitals included temperature 98.4, pulse 80, blood pressure 117/56, respiratory rate 16, O2 of 97% on 3 L. Weight was 55.7 kg. General: She is in no acute distress. Heart: Regular rate and rhythm. S1, S2 without murmur. Lungs: Sounds were clear to auscultation bilaterally without crackles or wheezes. Extremities: Warm and dry. No edema. Neck: Has trach in place. She does have the mass more so on the left side. Abdomen: Nontender. Mental Status: She is alert and oriented x3. DISCHARGE PLANS AND INSTRUCTIONS: The patient will follow up with Radiation Oncology on Friday to resume radiation treatments. She will continue the dexamethasone 4 mg twice daily until they taper it at [facility]. She will also be on the clindamycin 150 four times a day for 3-1/2 more days to complete her antibiotic course. She will take magnesium supplements daily, which will also help with constipation. She may use Tylenol and oxycodone as needed for her breakthrough pain. She will resume the home health and plan for home palliative cares and potentially hospice when radiation is completed. Greater than 30 minutes spent on the discharge process. MKA: 04/04/2020 18:35:52 MODL: 04/04/2020 21:08:42 /[id number]
== END 2020-04-04 11:15 | disposition home health service (06) | DRG 871 ==
LOC: VM.ED 17:52 → VM.MS 19:38
PROVIDERS: ADMIT Internal Medicine; ATTEND Internal Medicine
PROC: 30233N1 Transfusion of Nonautologous Red Blood Cells into Peripheral Vein, Percutaneous Approach (ICD-10-PCS; principal; 2020-04-02)
DX: A41.9 Sepsis, unspecified organism (principal); J18.9 Pneumonia, unspecified organism; A41.01 Sepsis due to Methicillin susceptible Staphylococcus aureus; J15.211 Pneumonia due to Methicillin susceptible Staphylococcus aureus; I50.9 Heart failure, unspecified; I42.9 Cardiomyopathy, unspecified; Z87.01 Personal history of pneumonia (recurrent); E44.0 Moderate protein-calorie malnutrition; E83.51 Hypocalcemia; Z83.79 Family history of other diseases of the digestive system; C32.9 Malignant neoplasm of larynx, unspecified; F41.9 Anxiety disorder, unspecified; D64.9 Anemia, unspecified; G89.3 Neoplasm related pain (acute) (chronic); J43.9 Emphysema, unspecified; Z92.3 Personal history of irradiation; Z85.21 Personal history of malignant neoplasm of larynx; G62.9 Polyneuropathy, unspecified; I27.20 Pulmonary hypertension, unspecified; K21.9 Gastro-esophageal reflux disease without esophagitis; Z91.040 Latex allergy status; K44.9 Diaphragmatic hernia without obstruction or gangrene; Z88.2 Allergy status to sulfonamides; Z91.018 Allergy to other foods; E03.9 Hypothyroidism, unspecified; Z79.890 Hormone replacement therapy; Z79.51 Long term (current) use of inhaled steroids; D50.9 Iron deficiency anemia, unspecified; M85.80 Other specified disorders of bone density and structure, unspecified site; F32.9 Major depressive disorder, single episode, unspecified; E55.9 Vitamin D deficiency, unspecified; Z99.81 Dependence on supplemental oxygen; Z79.899 Other long term (current) drug therapy; Z88.0 Allergy status to penicillin; Z91.038 Other insect allergy status; Z20.828 Contact with and (suspected) exposure to other viral communicable diseases; Z88.6 Allergy status to analgesic agent; Z88.1 Allergy status to other antibiotic agents; Z88.8 Allergy status to other drugs, medicaments and biological substances; Z91.048 Other nonmedicinal substance allergy status; D46.9 Myelodysplastic syndrome, unspecified; Z87.891 Personal history of nicotine dependence; Z98.890 Other specified postprocedural states
CPT/HCPCS: 36415; 36430; 71045; 80048; 80053; 81001; 83605; 83735; 83880; 84484; 85025; 85652; 86850; 86900; 86901; 86920; 86922; 87040; 87070; 87077; 87186; 87205; 87804; 87804-59; 93005; 94640; 94760; 96365; 99284; 99285-25; A9270-GY; J1100; J1956; J2270; J3370; J7030; J7050; J7613-GY; J7620-GY; P9016; U0002

== ENCOUNTER 2020-07-25 01:28 | Emergency (ER) | payer MEDICARE, BC ==
[2020-07-25] MEDS ORDERED: Morphine 4 MG/ML Syringe ONE (01:59)
--- NOTE | 2020-07-25 02:22 | EDM.PDOC ---
ED HPI GENERAL MEDICAL PROBLEM - General Chief Complaint: Respiratory Problem Stated Complaint: Unresponsive Time Seen by Provider: 07/25/20 01:28 Source of Information: Reports: EMS, Family - History of Present Illness INITIAL COMMENTS - FREE TEXT/NARRATIVE: Irma is a 79 y/o female who was brought to the ER by EMS after her had called 911. 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 The patient has gotten up to the bathroom and her heard her fall. When he went to check on her she was bleeding from her mouth and a large blood clot was noted in her mouth. called 911 for assistance and she was brought here. - Related Data Allergies Allergy/AdvReac Type Severity Reaction Status Date / Time acetaminophen [From Hester] Allergy Nausea Verified 07/18/20 11:48 adhesive Allergy Rash Verified 05/05/20 17:19 adhesive tape Allergy Rash Verified 07/18/20 11:48 amoxicillin Allergy Rash Verified 05/05/20 17:19 ceftriaxone Allergy Rash Verified 05/05/20 17:19 cephalexin Allergy Rash Verified 05/05/20 17:19 erythromycin base Allergy Rash Verified 05/05/20 17:19 hydroxyurea [From Hydrea] Allergy Other Verified 05/05/20 17:19 iodine Allergy Hives Verified 05/05/20 17:19 latex Allergy Rash Verified 05/05/20 17:19 metronidazole [From Flagyl] Allergy Rash Verified 07/18/20 11:48 Penicillins Allergy Rash Verified 05/05/20 17:19 Sulfa (Sulfonamide Allergy Rash Verified 05/05/20 17:19 Antibiotics) aspirin AdvReac Bleeding Verified 05/05/20 17:19 doxycycline AdvReac Rectal Verified 05/05/20 17:19 Bleeding Fish Containing Products AdvReac Nausea Verified 05/05/20 17:19 hydrocodone [From Hester] AdvReac Nausea Verified 05/05/20 17:19 NSAIDS (Non-Steroidal AdvReac Bleeding Verified 05/05/20 17:19 Anti-Inflamma perfume AdvReac Headache Verified 05/05/20 17:19 Home Meds: Home Meds Citalopram Hydrobromide [Celexa] 20 mg PO BEDTIME 01/02/15 [History] Omeprazole [Prilosec] 20 mg PO DAILY 01/02/15 [History] Arformoterol [Brovana] 15 mcg NEB BID 08/17/18 [History] Budesonide [Pulmicort] 0.5 mg NEB BID 08/17/18 [History] Levothyroxine [Synthroid] 150 mcg PO DAILY 08/17/18 [History] Albuterol [Proventil] 2.5 mg INH Q4HR PRN 10/16/19 [History] Calcium Carbonate [Calcium Carbonate 250 MG/ML Susp] 10 ml PO ASDIRECTED 10/16/19 [History] LORazepam [Ativan] 1 mg PO BID PRN 10/16/19 [History] Ondansetron [Zofran ODT] 4 mg PO Q4HR PRN 10/16/19 [History] calcitrioL [Rocaltrol] 0.5 mcg PO BID 10/16/19 [History] Furosemide 20 mg PO DAILY PRN 03/17/20 [History] Morphine [MS Contin] 15 mg PO BID 03/17/20 [History] Sodium Chloride for Inhalation [Hyper-Markel] 3 ml NEB QID 03/17/20 [History] dexAMETHasone [Dexamethasone] 4 mg PO BID 03/17/20 [History] Acetaminophen [Tylenol Solution 160 MG/5 ML] 600 mg PO Q4H PRN bottle 04/04/20 [Rx] Magnesium Oxide 400 mg PO BID #60 tablet 04/04/20 [Rx] Ergocalciferol (Vitamin D2) [Vitamin D2] 50,000 unit PO Q7D 07/18/20 [History] Roxanol 5 mg PO Q4H PRN 07/18/20 [History] Sennosides [Senna] 17.2 mg PO DAILY 07/18/20 [History] polyethylene glycoL 3350 [MiraLAX] 17 gm PO DAILY PRN 07/18/20 [History] Past Medical History HEENT History: Reports: Other (See Below) Other HEENT History: laryngeal cancer, vocal cord cyst Cardiovascular History: Reports: Cardiomyopathy, Heart Failure, Other (See Below) Other Cardiovascular History: aortic disorder Respiratory History: Reports: Bronchitis, Recurrent, COPD, Pneumonia, Recurrent, SOB, Other (See Below) Other Respiratory History: Pulmonary emphysema, centrilobular emphysema, acute respiratory failure with hypoxia Gastrointestinal History: Reports: GI Bleed, Hiatal Hernia, Other (See Below) Other Gastrointestinal History: 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, gastroentestinal hemorrhage Genitourinary History: Reports: Other (See Below) Other Genitourinary History: atrophic vaginitis 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 LAW PROFESSOR History: Reports: Other (See Below) Other CONTRACTS LAW PROFESSOR History: Atrophic vaginitis Musculoskeletal History: Reports: Other (See Below) Other Musculoskeletal History: broke right foot 8 years ago Neurological History: Reports: Neuropathy, Peripheral, Other (See Below) Other Neuro History: myelodysplastic syndrome Psychiatric History: Reports: Anxiety, Depression Endocrine/Metabolic History: Reports: Hypothyroidism, Osteopenia Hematologic History: Reports: Anemia, Iron Deficiency, Other (See Below) Other Hematologic History: Myelodysplastic Syndrome, thrombocytosis, bone marrow biopsy Oncologic (Cancer) History: Reports: Other (See Below) 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 Dermatologic History: Reports: Other (See Below) Other Dermatologic History: cutaneous abscess of chest wall - Infectious Disease History Infectious Disease History: Reports: C-Difficile, Other (See Below), MRSA Other Infectious Disease History: H. Pylori infection - Past Surgical History HEENT Surgical History: Reports: Cataract Surgery, Other (See Below) Other HEENT Surgeries/Procedures: laryngectomy Cardiovascular Surgical History: Reports: Other (See Below) Other Cardiovascular Surgeries/Procedures: drainage of chest wall hematoma Respiratory Surgical History: Reports: Other (See Below) Other Respiratory Surgeries/Procedures: left neck I & D, total laryngectomy with pectoralis flap, tracheostomy, left neck mass excision, neck dissection, panendoscopy GI Surgical History: Reports: Colonoscopy, EGD Other GI Surgeries/Procedures: endoscopy Female Surgical History: Reports: Breast Biopsy Musculoskeletal Surgical History: Reports: Other (See Below) Other Musculoskeletal Surgeries/Procedures:: exostosis excision right great toe Dermatological Surgical History: Reports: Skin Biopsy Social & Family History - Family History Family Medical History: No Pertinent Family History - Caffeine Use Caffeine Use: Reports: Coffee ED ROS GENERAL - Review of Systems Review Of Systems: Unable To Obtain Reason Not Obtained: Unresponsive/Patient DNR ED EXAM, GENERAL - Physical Exam Exam: See Below General Appearance: Cachetic (Elderly female secured in cervical spine immobilization and on spine board. Note EMS at bedside assiting repisrations with BVM at stoma site. Note bright red blood on nightgown and around mouth and stoma.) Eye Exam: Bilateral Eye: Other (Fixed and dilated) Head: Normocephalic Neck: Other (Note trach stoma with bright bleeding noted.) Respiratory/Chest: Other (Note agonal respirations) Cardiovascular: Other (Faint pulse noted in the femoral region, Note heart rate of 140s on the equipment monitor phototypesetting.) GI/Abdominal: Soft (Female) Exam: Deferred Rectal (Female) Exam: Deferred Neurological: Unresponsive Skin Exam: Dry, Cool, Pallor Course - Vital Signs Text/Narrative:: Patient was seen on arrival to the ED by the OUTBOARD SYSTEM OPERATOR. EMS was assisting the patient with BVM during agonal respirations. arrives with the patient to the ER and confirms recent DNR status. Noted that patient's pupils were fixed and dilated bilaterally on arrival. Morphine 4mg IVP was ordered for comfort. Approximately 0200 patient's spontaneous respirations were slowed and agonal and BVM assisting was stopped. Faint pulse was noted and HR dropping. 0212 HR=0 and flat lined on the monitor, no HR auscultated or no pulse felt. Post Mortem cares per protocol. Dr Alley John contacted by phone. - Orders/Labs/Meds Meds: Medications Discontinued Medications Generic Name Dose Route Start Last Admin Trade Name Freq PRN Reason Stop Dose Admin Morphine Sulfate Confirm 07/25/20 01:59 Morphine Administered 07/25/20 02:00 Dose 4 mg .ROUTE .STK-MED ONE Departure - Departure Time of Disposition: 02:12 Disposition: 20 Preliminary Cause of *Q: Respiratory Failure Condition: Undetermined Clinical Impression: Laryngeal cancer - Discharge Information Additional Instructions: -Post-Mortem cares per protocol - requesting [facility] for home services
[2020-07-25 03:40] VITALS: BP 76/41; PULSE 136
[2020-07-25] MEDS ORDERED: Morphine 4 MG/ML Syringe IVPUSH ONE (03:41)
== END 2020-07-25 03:19 | disposition expired ==
LOC: VM.ED 01:28
DX: C32.9 Malignant neoplasm of larynx, unspecified (principal); I50.9 Heart failure, unspecified; J44.9 Chronic obstructive pulmonary disease, unspecified; G62.9 Polyneuropathy, unspecified; E03.9 Hypothyroidism, unspecified; Z88.6 Allergy status to analgesic agent; Z91.048 Other nonmedicinal substance allergy status; Z88.0 Allergy status to penicillin; Z88.1 Allergy status to other antibiotic agents; Z91.040 Latex allergy status; Z88.2 Allergy status to sulfonamides; Z91.013 Allergy to seafood; Z88.5 Allergy status to narcotic agent; Z79.899 Other long term (current) drug therapy
CPT/HCPCS: 96374; 99284; 99285-25; J2270